=== PATIENT | female | born 1960 | race Caucasian/White ===

== ENCOUNTER → 2023-09-13 13:41 | Outpatient (REF) | payer MEDICARE, OTHER, SELFPAY | LOC: RCS 13:41 | PROVIDERS: ATTENDING PHYSICIAN Family Medicine | DX: R06.09 Other forms of dyspnea (principal) | CPT/HCPCS: 93017; 93350 ==

== ENCOUNTER → 2023-10-19 14:34 | Outpatient (REF) | payer MEDICARE, OTHER, SELFPAY | LOC: MRI 3T 14:34 | PROVIDERS: ATTENDING PHYSICIAN Family Medicine | DX: R41.3 Other amnesia (principal) | CPT/HCPCS: 70551 ==

== ENCOUNTER → 2024-03-19 14:46 | Outpatient (REF) | payer MEDICARE, OTHER, SELFPAY ==
[2024-03-19 18:23] LABS: % Basophils 0.8 % (0-2); % Eosinophils 2.3 % (0-6); % Immature Granulocytes 0.7 % (0-0.5); % Lymphocytes 30.7 % (20.5-51.1); % Monocytes 8.9 % (1.7-9.3); % Neutrophils 56.6 % (42.2-75.2); Absolute Basophils 0.1 10^3/uL (0-0.2); Absolute Eosinophils 0.3 10^3/uL (0-0.7); Absolute Immature Granulocytes 0.1 10^3/uL (0-0.05); Absolute Lymphocytes 4.1 10^3/uL (1.2-3.4); Absolute Monocytes 1.2 10^3/uL (0.1-0.6); Absolute Neutrophils 7.5 10^3/uL (1.4-6.5); Hematocrit 41.4 % (37.0-47.0); Mean Corp Hgb Conc. 33.8 g/dL (33.0-37.0); Mean Corpuscular Hgb 30.8 pg (27.0-31.0); Mean Corpuscular Volume 91.2 fL (81.0-99.0); Mean Platelet Volume 9.7 fL (7.4-10.4); Nucleated Red Blood Cells % 0 %; Platelet Count 350 10^3/uL (130-400); Red Blood Cell Count 4.54 10^6/uL (4.20-5.40); Red Cell Dist. Width 13.1 % (11.5-14.5); White Blood Cell Count 13.2 10^3/uL (4.8-10.8)
[2024-03-19 18:47] LABS: ALT (SGPT) 35 U/L (0-35); AST (SGOT) 31 U/L (14-36); Albumin 4.4 g/dl (3.5-5.0); Alkaline Phosphatase 69 U/L (38-126); Blood Urea Nitrogen 14 mg/dl (7-17); Calcium 9.6 mg/dl (8.4-10.2); Carbon Dioxide 28 mmol/L (22-30); Chloride 102 mmol/L (98-107); Glucose 73 mg/dl (70-99); Potassium 4.6 mmol/L (3.5-5.1); Sodium 140 mmol/L (135-145); Total Bilirubin 0.4 mg/dl (0.2-1.3); Total Protein 6.7 g/dl (6.3-8.2); eGFR > 60.00
== END ==
LOC: REG 14:46
PROVIDERS: ATTENDING PHYSICIAN Family Medicine
DX: R19.5 Other fecal abnormalities (principal); R14.0 Abdominal distension (gaseous); K62.89 Other specified diseases of anus and rectum
CPT/HCPCS: 36415; 74018; 80053; 85025

== ENCOUNTER → 2024-03-20 15:38 | Outpatient (REF) | payer MEDICARE, OTHER, SELFPAY | LOC: REG 15:38 | PROVIDERS: ATTENDING PHYSICIAN Family Medicine | DX: R19.5 Other fecal abnormalities (principal); R14.0 Abdominal distension (gaseous) | CPT/HCPCS: 82272; 87045; 87046; 87324; 87427; 87449; 89055 ==

== ENCOUNTER → 2024-04-05 06:23 | Day surgery (SDC) | payer MEDICARE, OTHER, SELFPAY | LOC: GI 06:23 | PROVIDERS: ATTENDING PHYSICIAN Internal Medicine | DX: K57.30 Diverticulosis of large intestine without perforation or abscess without bleeding (principal); R93.3 Abnormal findings on diagnostic imaging of other parts of digestive tract | CPT/HCPCS: 45331; 88305 ==

== ENCOUNTER → 2024-06-07 14:30 | Outpatient (REF) | payer MEDICARE, OTHER, SELFPAY | LOC: RAD 14:30 | PROVIDERS: ATTENDING PHYSICIAN Internal Medicine; FAMILY PHYSICIAN Family Medicine | DX: R09.89 Other specified symptoms and signs involving the circulatory and respiratory systems (principal); R05.9 Cough, unspecified | CPT/HCPCS: 71046 ==

== ENCOUNTER → 2024-06-27 14:21 | Outpatient (REF) | payer MEDICARE, OTHER, SELFPAY | LOC: WDC 14:21 | PROVIDERS: ATTENDING PHYSICIAN Family Medicine | DX: Z12.31 Encounter for screening mammogram for malignant neoplasm of breast (principal); R92.8 Other abnormal and inconclusive findings on diagnostic imaging of breast | CPT/HCPCS: 76642; 77063; 77067 ==

== ENCOUNTER → 2024-07-10 09:39 | Outpatient (REF) | payer MEDICARE, OTHER, SELFPAY | LOC: WDC 09:39 | PROVIDERS: ATTENDING PHYSICIAN Family Medicine | DX: R92.8 Other abnormal and inconclusive findings on diagnostic imaging of breast (principal) | CPT/HCPCS: 76642 ==

== ENCOUNTER → 2024-08-23 18:06 | Outpatient (REF) | payer MEDICARE, OTHER, SELFPAY | LOC: MRI 3T 18:06 | PROVIDERS: ATTENDING PHYSICIAN Family Medicine | DX: R41.3 Other amnesia (principal); G43.909 Migraine, unspecified, not intractable, without status migrainosus | CPT/HCPCS: 70551 ==

== ENCOUNTER → 2024-09-26 11:29 | Outpatient (REF) | payer MEDICARE, OTHER, SELFPAY | LOC: HWRAD 11:29 | PROVIDERS: ATTENDING PHYSICIAN Internal Medicine Critical Care Medicine; FAMILY PHYSICIAN Family Medicine | DX: Z87.891 Personal history of nicotine dependence (principal) | CPT/HCPCS: 71271 ==

== ENCOUNTER 2024-10-24 22:12 | Inpatient (IN) | payer MEDICARE, OTHER, SELFPAY ==
[2024-10-24] VITALS (11 sets, daily range): BP systolic 100–149; BP diastolic 41–62; BMI 25.0; BMI 24.5
--- NOTE | 2024-10-24 16:50 | DOWNTIME ---
There was a [employer] Client Enrobing Machine Corder Downtime on 10/24/2024 from 1230 to 10/24/2024 at 1550. Downtime documentation of patient's care, including medication administrations, has been reconciled in the electronic record per guidelines. Refer to the
patient's paper chart under the miscellaneous tab to see printed paper medication records and downtime forms.
--- NOTE | 2024-10-24 16:58 | DOWNTIME ---
There was a [employer] Client Radiological Technician Downtime on 10/24/2024 from 1230 to 10/24/2024 at 1550. Downtime documentation of patient's care, including medication administrations, has been reconciled in the electronic record per guidelines. Refer to the
patient's paper chart under the miscellaneous tab to see printed paper medication records and downtime forms.
[2024-10-24 17:16] LABS: ALT (SGPT) 22 U/L (0-35); AST (SGOT) 21 U/L (14-36); Albumin 4.3 g/dl (3.5-5.0); Alkaline Phosphatase 78 U/L (38-126); Blood Urea Nitrogen 10 mg/dl (7-17); Calcium 9.6 mg/dl (8.4-10.2); Carbon Dioxide 24 mmol/L (22-30); Chloride 101 mmol/L (98-107); Estimated Creatinine Clearance 87 ml/min; Glucose 102 mg/dl (70-99); Lipase 34 U/L (23-300); Potassium 4.4 mmol/L (3.5-5.1); Sodium 133 mmol/L (135-145); Total Bilirubin 0.9 mg/dl (0.2-1.3); Total Protein 6.9 g/dl (6.3-8.2); eGFR > 60.00
[2024-10-24] MEDS: NSS 1000 IV (18:00)
[2024-10-24] MEDS: OMNIPAQUE 50 ML PO (18:10)
[2024-10-24] MEDS: ZOFRAN 4 MG IV ×2 (18:10→19:56)
[2024-10-24] MEDS: TORADOL 30 MG IV (18:10)
[2024-10-24] MEDS: TYLENOL 650 MG PO (18:11)
[2024-10-24 18:48] LABS: % Basophils 0.5 % (0-2); % Eosinophils 0.1 % (0-6); % Immature Granulocytes 0.5 % (0-0.5); % Lymphocytes 9.9 % (20.5-51.1); % Monocytes 10.2 % (1.7-9.3); % Neutrophils 78.8 % (42.2-75.2); Absolute Basophils 0.1 10^3/uL (0-0.2); Absolute Immature Granulocytes 0.1 10^3/uL (0-0.05); Absolute Lymphocytes 1.5 10^3/uL (1.2-3.4); Absolute Monocytes 1.6 10^3/uL (0.1-0.6); Absolute Neutrophils 12.3 10^3/uL (1.4-6.5); Hematocrit 40.9 % (37.0-47.0); Mean Corp Hgb Conc. 34.2 g/dL (33.0-37.0); Mean Corpuscular Hgb 31.8 pg (27.0-31.0); Nucleated Red Blood Cells % 0 %; Platelet Count 233 10^3/uL (130-400); Red Cell Dist. Width 15.1 % (11.5-14.5); White Blood Cell Count 15.5 10^3/uL (4.8-10.8)
--- NOTE | 2024-10-24 19:07 | ED.GENMED ---
History of Present Illness
General
Chief Complaint: Abdominal Symptoms
Source: patient
Time Seen by Provider: 10/24/24 17:39
History of Present Illness
History of Present Illness:
64-year-old female with past medical history of psoriatic arthritis, asthma/COPD, GERD, diverticulitis presenting to the ER for evaluation of nausea vomiting and diarrhea which started this past Tuesday, accompanied with fever during this time with
Tmax of 103.6 which was earlier today. Patient took some Tylenol but states still having persistent symptoms. She does note that the day prior to her symptoms starting she had eaten some food at a local restaurant as part of services but
states she has been too ill to talk to anybody else who attended the to know if anybody else was sick. No recent travel or recent antibiotics however patient is immunosuppressed due to her psoriatic arthritis with medication she receives
for this. She has no other symptoms presently.
Past History
Past History
ED Past Medical History: Asthma, COPD, GERD, Other (low back pain, Mitral and aortic prolapse) and Other (Psoriatic arthritis)
ED Past Surgical History: , Gynecological (Hysterectomy) and Other (nasal surgery)
Patient has exhibited threatening behavior?: No
Social History
Tobacco: Smoker
Alcohol: Occasional
Drug: None
Personal:
Living: alone
Review of Systems
Review of Systems
All Other Systems: ROS reviewed and negative except as documented in HPI and ROS
Phy Exam
Physical Exam
Physical Exam:
GENERAL: Alert , in no apparent distress, appears uncomfortable, ill-appearing but nontoxic
EYE: clear conjunctiva b/l
HEAD: NCAT
ENT: o/p clr, mmm.
CARDIAC: Borderline tachycardic rate and rhythm, no murmur
LUNGS: Clear breath sounds bilaterally, no acute respiratory distress, no wheezes/rales/rhonchi
ABDOMEN: Soft, generalized tenderness, no r/g, no cvat
NEUROLOGICAL: Alert and oriented
SKIN: Warm and dry, skin intact.
MUSCULOSKELETAL: No edema, well perfused.
PSYCH: Normal and appropriate interaction.
Scores
Heart Failure Risk
Heart Failure Risk Score: Not Applicable
Heart Score for Chest Pain Patients
STEMI patient?: Not applicable
Withdrawal Assessment of Alcohol
Withdrawal Assessment Completed?: Not applicable
Sepsis
Sepsis Screening
Sepsis Assessment: Sepsis
Sepsis Screen
Sepsis Screen: Sepsis
Date: 10/24/24
Time: 22:26
Course
Orders/Labs/Results
Orders:
Orders
10/24/24 16:49
IV Insert/Care/Rem.- Treatment PRN
10/24/24 16:55
Complete Blood Count/With Diff Urgent
Comprehensive Metabolic Panel Urgent
Lipase Urgent
10/24/24 17:50
0.9% Sodium Chloride 1000 ml [Nss] 1,000 ml IV BOLUS
Acetaminophen [Tylenol] 650 mg PO NOW STA
Iohexol [Omnipaque] See Protocol PO NOW STA
Ketorolac [Toradol] 30 mg IV NOW STA
Ondansetron Injectable [Zofran] 4 mg IV NOW STA
10/24/24 17:51
CT Abd/pel (oral only)-DH Only Urgent
Comment:
Reason For Exam: generalized pain, N/V/D, fevers
10/24/24 18:14
STOOL [C difficile Antigen & Toxins] Urgent
KELLY Source: Feces/Stool
Specimen Description:
Stool Culture Urgent
KELLY Source: Feces/Stool
Specimen Description:
10/24/24 18:39
Influenza A+B Rapid Molecular Urgent
KELLY Source: Nasal Swab
Specimen Description:
10/24/24 19:49
Ondansetron Injectable [Zofran] 4 mg IV NOW STA
10/24/24 21:21
0.9% Sodium Chloride 500 ml [Nss] 500 ml IV BOLUS
10/24/24 21:49
Norovirus by PCR Stat
KELLY Source: Feces/Stool
Specimen Description:
Ova & Parasites Giardia/Crypto AG [Giardia/Cryptosporidium Ag] Urgent
KELLY Source: Feces/Stool
Specimen Description:
10/24/24 21:57
Admit/Transfer Patient As Directed
Co-Sign Provider:
Level of Care: Inpatient admission
Assign to:: Medical/Surgical
Physician / Group: bran
Diagnosis: gastroenteritis
Reason for Hospitalization: gastroenteritis
Expected length of stay greater than two midnights?: Yes
ELOS- Estimated Length of Stay in days: 3
I certify the patient meets the requirements for IP care: Yes
PRN Pain Medication Management As Directed
May give lesser potent ordered pain med per pt: Yes
preference::
Protocol:: Medication orders for pain may be administered in a
manner that supports deferring to patient preference
when the pt is:
- Requesting an ordered lesser potent pain medication.
Least to most potent pain medications are defined
as: acetaminophen < NSAID < tramadol < opioids
(morphine, oxycodone, hydromorphone).
- Requesting a lesser dose of the same medication IF
ORDERED.
- Requesting a less intrusive route of administration
if both routes are prescribed by the provider (PO <
IV).
10/24/24 21:58
Code Status As Directed
Resuscitation Status: Full Code
10/24/24 22:12
COVID-19 Antigen Stat
Source: Nasal Swab
Lactic Acid Q4H
Comment: CANCEL 2nd LACTIC ACID IF 1st LACTIC ACID IS LESS THAN 2
Blood Culture Q30M
KELLY Source: Blood/Venous
Specimen Description:
Blood Culture Q30M
KELLY Source: Blood/Venous
Specimen Description:
10/25/24 01:45
Lactic Acid Q4H
Comment: CANCEL 2nd LACTIC ACID IF 1st LACTIC ACID IS LESS THAN 2
Abnormal Lab Results
10/24/24
16:55
WBC 15.5 H 10^3/uL
(4.8-10.8)
MCH 31.8 H pg
(27.0-31.0)
RDW 15.1 H %
(11.5-14.5)
Abs Immat Gran (auto) 0.1 H 10^3/uL
(0-0.05)
Absolute Neuts (auto) 12.3 H 10^3/uL
(1.4-6.5)
Absolute Monos (auto) 1.6 H 10^3/uL
(0.1-0.6)
Neutrophils % 78.8 H %
(42.2-75.2)
Lymphocytes % 9.9 L %
(20.5-51.1)
Monocytes % 10.2 H %
(1.7-9.3)
Sodium 133 L mmol/L
(135-145)
Glucose 102 H mg/dl
(70-99)
10/24/24 16:55
10/24/24 16:55
Vital Signs
Initial and Last Documented VS:
Initial Vital Signs
Temp Pulse Resp BP Pulse Ox
98.1 F 90 16 100/59 100
10/24/24 13:56 10/24/24 13:56 10/24/24 13:56 10/24/24 13:56 10/24/24 13:56
Last Documented Vital Signs
Temp Pulse Resp BP Pulse Ox
103.0 F H 79 17 115/54 96
10/24/24 18:15 10/24/24 22:15 10/24/24 22:15 10/24/24 22:00 10/24/24 22:15
MDM/Problems Addressed
Differential Diagnosis Includes:
C. difficile colitis or other infectious diarrhea, hepatitis, diverticulitis, appendicitis, pancreatitis
MDM/Problems Addressed:
64-year-old female presenting the ER for evaluation of nausea vomiting and diarrhea associated with a fever. Symptoms ongoing for 5 days now. Patient immunosuppressed, has fever here. Leukocytosis noted on lab work with mild hyponatremia with
hyponatremia likely being from mild dehydration. CT scan of the abdomen and pelvis ordered. Will attempt to obtain stool studies. Given her fever, progressive symptoms and immunosuppressed state patient will likely need admission for continued
evaluation and treatment.
Chronic conditions affecting care: Immunosuppressed
*Radiology
Radiology exam reviewed: radiology read reviewed
*Pulse Oximetry
Patient hypoxic: no
*Critical Care Note
Total Time (30-74mins, 75-104mins- exclusive of procedures): Not Applicable
Data Reviewed
Review of Other/Old Records Reveals: Labs, Records and Radiology Studies
Patient Management
Discussion with other providers: Hospitalist
Escalation/DeEscalation of care consider admission/obs:
CT scan findings for no acute intra-abdominal processes however there was findings noted for possible right middle lobe pneumonia. Patient without symptoms suggestive of pneumonia. Given her diarrhea and risk for C. difficile colitis, will defer
antibiotic treatment to hospitalist team. Due to patient's present immunosuppressed state, fevers and leukocytosis plan for admission hospitalist team to admit.
ED Attending Note
-
Portions of this chart may have been created with voice recognition software.� Occasional wrong word or��sound alike� substitutions may have occurred due to the inherent limitations of voice recognition software.
Discharge Plan
Departure
Patient Disposition: Admit
Date of Disposition: 10/24/24
Time of Disposition: 21:35
Presentation/result/management discussed w/ accepting MD/DO: Hospitalist
Discharge Problem:
Nausea, vomiting, and diarrhea, Fever
Interventions
Interventions:
*Risk Screen - Suicide Last Done: 10/24/24 16:52
*General Assessment Last Done: 10/24/24 17:00
*Neglect/Abuse Screening Last Done: 10/24/24 16:52
*ED- Fall Risk Assessment Last Done: 10/24/24 16:52
*ED COVID-19 Vaccine History Last Done: 10/24/24 16:52
PC-Vgxzdt-Jxufugxyiy Assessment Last Done: 10/24/24 17:00
--- NOTE | 2024-10-24 21:36 | HPS.HSE ---
Family Physician
-
Family Physician: Larry Rothman Jr.
Chief Complaint
-
fever, n/v/d
History of Present Illness
64-year-old female with past medical history of psoriatic arthritis, asthma/COPD, GERD, diverticulitis presenting to the ER for evaluation of nausea vomiting and diarrhea which started this past Tuesday, accompanied with fever during this time with
Tmax of 103.6. She does note that the day prior to her symptoms starting she had eaten some food at a local restaurant as part. Tuesday and Tuesday she was vomiting and diarrhea. Patient started spiking fever since Tuesday night . Since then she
has been taking Tylenol every 6 hours for fever. Patient stated very poor appetite. she had half a cup of soup yesterday afternoon. She had ordered loose stool in her pad after having soup. She is complaining of headache and lightheaded .denied
runny nose, cough, congestion. Denied abdominal pain .patient denied dysuria, hematuria .no recent travel or recent antibiotics
Admitted for further management
Medical History
Past Medical History
Past Medical History: Reports Other
Additional Past Medical History:
Asthma, COPD, GERD, psoriatic arthritis
Past Surgical History: Reports Other
Additional Past Surgical History:
, hysterectomy, nasal surgery
Social History
Tobacco: Smoker (Half a pack daily)
Alcohol: Occasional
Drug: None
Family History
Family History: Not pertinent
Allergies / Home Medications
Allergies reflects when Allergies were last updated in [employer].
Home Medications with original date entered in [employer]
Allergy/Medication List:
Allergies
Allergy/AdvReac Type Severity Reaction Status Date / Time
cortisone Allergy Unknown Unknown Verified 10/24/24 17:09
iodine Allergy Pharmacy Verified 09/06/18 11:29
to Review
morphine (Morphine) Allergy itching, Verified 09/06/18 11:29
swelling,
difficulty
breathing,
nausea
oxycodone HCl (From Percocet) Allergy Pharmacy Verified 09/06/18 11:29
to Review
Penicillins Allergy itching, Verified 09/06/18 11:29
swelling,
difficulty
breathing,
nausea
shellfish derived Allergy itching, Verified 09/06/18 11:29
swelling,
difficulty
breathing,
nausea
antibiotic Allergy swelling, Uncoded 09/06/18 11:29
itching,
breathing
problems
Home Medications
fexofenadine 30 mg tablet (Abbie) 180 mg PO DAILY 02/09/10
estradiol 0.5 mg tablet 0.5 mg PO DAILY 09/06/18
gabapentin 300 mg capsule 300 mg PO HS 09/06/18
certolizumab pegol 200 mg/mL subcutaneous syringe kit (Cimzia) 200 mg SC Q2W 10/24/24
famotidine 40 mg tablet 40 mg PO DAILY 10/24/24
fluticasone furoate 200 mcg-vilanterol 25 mcg/dose inhalation powder (Breo Ellipta) 1 inh inhalation 1XD 10/24/24
folic acid 1 mg tablet 3 mg PO DAILY 10/24/24
inulin-vitamin D3 50 mcg PO DAILY 10/24/24
levothyroxine 125 mcg tablet 125 mcg PO DAILY 10/24/24
losartan 25 mg tablet 25 mg PO DAILY 10/24/24
methenam 118 mg-m.blue 10 mg-s.phos 40.8 mg-p.salic 36 mg-hyos capsule 1 tab PO QID PRN cystic bladder 10/24/24
methotrexate sodium 2.5 mg tablet 20 mg PO QWEEK 10/24/24
nabumetone 750 mg tablet 750 mg PO BID 10/24/24
rosuvastatin 5 mg tablet 5 mg PO DAILY 10/24/24
Review of Systems
-
Constitutional: Reports Fever and Fatigue
EENT: Reports No Symptoms
Respiratory: Reports No Symptoms
Cardiac: Reports No Symptoms
Abdomen/GI: Reports Nausea, Vomiting and Diarrhea
: Reports No Symptoms
Musculoskeletal: Reports No Symptoms
Skin: Reports No Symptoms
Neurological: Reports No Symptoms
Endocrine: Reports No Symptoms
Hematologic/Lymphatic: Reports No Symptoms
Psych: Reports No Symptoms
Physical Exam
Vital Signs
Vital Signs
Temp Pulse Resp BP Pulse Ox
103.0 F H 80 19 109/44 93
10/24/24 18:15 10/24/24 21:15 10/24/24 21:15 10/24/24 21:05 10/24/24 21:15
Physical Exam
General: Well Developed, Well Nourished and No Apparent Distress
HEENT: NormoCephalic, Moist mucous membranes and Atraumatic
Respiratory: Clear
Cardiac: S1/S2 and Regular Rhythm; No Murmur or Rub
GI: Soft, Non Tender, Non Distended and Normal Bowel Sounds; No Organomegaly
Rectal: Deferred by Provider
Musculoskeletal: No Clubbing, No Cyanosis and No Edema
Skin: No Rash
Neuro: AO x 3 and Nonfocal/grossly intact
Psych: Calm
Laboratory Results
-
10/24/24 16:55
10/24/24 16:55
Laboratory Results
Total Bilirubin 0.9 mg/dl (0.2-1.3) 10/24/24 16:55
AST 21 U/L (14-36) 10/24/24 16:55
ALT 22 U/L (0-35) 10/24/24 16:55
Alkaline Phosphatase 78 U/L (38-126) 10/24/24 16:55
Lipase 34 U/L (23-300) 10/24/24 16:55
Data Reviewed
-
CT Scan: Report Reviewed by me
Lab Data: Labs Reviewed by me
Impression/Plan
-
# Nausea/vomiting/diarrhea with fever concern for gastroenteritis
- Sepsis as evidenced WBC 15.5, temp 103
- CT with impression of No CT evidence for an acute inflammatory process in the abdomen or pelvis within the limitations of the lack of intravenous contrast. Suspicion for mild pneumonia/pneumonitis in the right middle lobe.
- Stool for culture, C. difficile, ova and parasite, norovirus ordered
- Full liquid diet, advance as tolerated
- Fluids continued for hydration
# GERD
-PPI continued
# Hypothyroid
- Levothyroxine continue
# Essential hypertension
- Losartan held due to hypotension
# Hyperlipidemia
- Statin continued
# Psoriatic arthritis
- Relafen continued
- Gabapentin continued
- On Cimzia and methotrexate
DVT prophylaxis
- Lovenox subcu
# CODE STATUS
- Full code
[2024-10-24] MEDS: NSS 500 IV (21:37)
--- NOTE | 2024-10-24 21:56 | W.PN.UPDATE ---
Update Note
Progress Note Update
This is an addendum to H&P written by CARE PROCESS MANAGER Syeda Paz
I saw and examined the patient.
The CARE PROCESS MANAGER's note was reviewed and I agree with the note.
Comment:
Ms. Cindy Horn is a 64 yo woman with hx psoriatic arthritis on immunosuppression, asthma/COPD, GERD presents to the ER with nausea/vomiting and fever up to 103 over past 5 days. Patient tried to drink soup yesterday then had significant diarrhea,
no bowel movement since.
Triage VS: T 98.1, P 90, RR 16, BP 100/59, SpO2 100%
LABS: WBC 15.5, Hg 14.0, PLT 233, Na 133, K+ 4.4, CO2 24, Cr 0.7, Glucose 102, liver enzymes WNL
IMPRESSION:
No CT evidence for an acute inflammatory process in the abdomen or pelvis within the limitations of the lack of intravenous contrast. Suspicion for mild pneumonia/pneumonitis in the right middle lobe.
Gastroenteritis
Nausea/Vomiting/Diarrhea
-s/p 1.5L in ER, IV Zofran PRN
-admit to med/surg
-continue IV fluids, IV Zofran PRN
-hold off on antibiotics for now
-f/U C. Diff, norovirus, stool culture, ova/parasites
-follow up covid testing
-influenza negative
-clear liquid diet, advance as tolerated
-if cultures unrevealing/patient without symptomatic improvement over next 48 hours would consult GI
possible pneumonia read on CT abdomen; patient without cough/congestion or pulmonary symptoms to suggest this as source of infection
-consider follow up CXR in 1-2 days
Psoriatic arthritis on immunosuppression - hold JUNIOR ACCOUNTANT methotrexate, Cimzie
continue JUNIOR ACCOUNTANT folate
Essential HTN - hold JUNIOR ACCOUNTANT Losartan
HLD - JUNIOR ACCOUNTANT Statin
DVT PPx
FULL CODE
[2024-10-24 22:38] LABS: Lactic Acid 0.5 mmol/L (0.7-2.0)
[2024-10-24 22:42] LABS: COVID-19 Antigen Negative (Negative)
[2024-10-25] MEDS: NEURONTIN 300 MG PO ×2 (00:35→22:40)
[2024-10-25] MEDS: NSS 1000 IV ×2 (00:45→14:01)
[2024-10-25] MEDS: TYLENOL 650 MG PO ×4 (01:07→19:47)
--- NOTE | 2024-10-25 01:55 | PTCARENOTE ---
Pt arrived to unit via stretcher. Pt walked from stretcher to bed. Pt was oriented to room. Pt AAOx3, VSS. Call ziegler is within reach, plan of care ongoing.
[2024-10-25 05:37] LABS: Hematocrit 36.4 % (37.0-47.0); Hemoglobin 12.5 g/dL (12.0-16.0); Mean Corp Hgb Conc. 34.3 g/dL (33.0-37.0); Mean Corpuscular Hgb 31.5 pg (27.0-31.0); Mean Corpuscular Volume 91.7 fL (81.0-99.0); Mean Platelet Volume 9.2 fL (7.4-10.4); Platelet Count 192 10^3/uL (130-400); Red Blood Cell Count 3.97 10^6/uL (4.20-5.40); Red Cell Dist. Width 14.9 % (11.5-14.5); White Blood Cell Count 11.4 10^3/uL (4.8-10.8)
[2024-10-25] MEDS: SYNTHROID 125 MCG PO (05:57)
[2024-10-25] MEDS: SYMBICORT 160/4.5 MCG INHALER 2 PUFF INH ×2 (07:26→19:34)
[2024-10-25 07:35] VITALS: BP 164/60
--- NOTE | 2024-10-25 08:19 | W.PN.HOSP.TC ---
Today's Communication/Plan
-
see plan
Assessment / Plan
Assessment / Plan
Gen: NAD, AAOx3.
Eyes: EOMI, PERRLA, no scleral icterus.
Neck: supple.
CV: tachy, reg rhythm, +S1/S2, no m/r/g.
Resp: CTAB, no rales, wheezes, or rhonchi.
Abd: +BS, soft, NT, ND
Skin: No rashes.
Neuro: CN 2-12 intact, non-focal.
Psych: Normal mood and affect.
10/25/24 07:18 Feces/Stool C. difficile [facility] Antigen & Toxins - Final
C. difficile antigen positive, toxin negative.
Clostridium difficile present, but toxin not detected.
Patient may be a carrier, colonized with nontoxinogenic
strain or the level of toxin in sample is below detection
limits. This information should be used in conjunction with
the patient's clinical history.
10/24/24 18:39 Nasal Swab Influenza Types A & B (NANDINI) - Final
Negative for Influenza A & B, NAAT
Negative results must be combined with clinical observations
and patient history.
Nucleic Acid Amplification test (NAAT)performed on the
[employer] NOW platform.
CT A/P: No CT evidence for an acute inflammatory process in the abdomen or pelvis within the limitations of the lack of intravenous contrast. Suspicion for mild pneumonia/pneumonitis in the right middle lobe.
Sepsis:
-presented with N/V/D with fever with concern for gastroenteritis
-CT A/P above, check CXR
-COVID/Flu NEG
-follow stool studies and BCxs. Note, C diff Ag POS, toxin NEG. As the pt is immunocompromised and has profuse diarrhea, will start PO Vanco pending ID eval.
-cont IVFs
Other problems:
GERD: cont PPI
Hypothyroidism: cont Levoxyl
Essential hypertension: Losartan was held due to hypotension
Hyperlipidemia: cont statin
Psoriatic arthritis: cont Relafen/gabapentin. Home MTX on hold, on Cimzia outpt.
FULL/Lovenox
Total time spent on today's encounter was 50 minutes which included time spent in counseling the patient/family regarding diagnosis and treatment plan as listed above, goals of care, and symptom management. Case was discussed with nursing staff,
specialists, and care coordinators/case management. All labs and imaging personally reviewed by me. Remainder the time spent in detailed review of previous records, lab data, imaging, and other medical provider documentation.
Anticipated Discharge: > 48 hours
Subjective/Interval History
-
Date of Service: October 25, 2024
c/o persistent diarrhea
Objective Data
-
Labs:
Laboratory Results
10/25/24
05:22
WBC 11.4 H
Hgb 12.5
Hct 36.4 L
Plt Count 192
Vital Signs:
Vital Signs
Temp Pulse Resp BP Pulse Ox
102.2 F H 103 17 164/60 95
10/25/24 07:35 10/25/24 07:35 10/25/24 07:35 10/25/24 07:35 10/25/24 07:35
I&O
10/24/24 10/25/24 10/26/24
06:59 06:59 06:59
Intake Total 960 / 960
Balance 960 / 960
[2024-10-25] MEDS: FOLVITE 3 MG PO (08:31)
[2024-10-25] MEDS: CLARITIN 10 MG PO (08:32)
[2024-10-25] MEDS: PEPCID 40 MG PO (08:32)
[2024-10-25] MEDS: ESTRACE 0.5 MG PO (08:32)
[2024-10-25] MEDS: CRESTOR 5 MG PO (08:32)
[2024-10-25] MEDS: RELAFEN 750 MG PO ×2 (08:33→19:47)
[2024-10-25] MEDS: FIRVANQ 125 MG PO ×3 (11:09→23:51)
[2024-10-25 13:24] VITALS: BMI 24.5
[2024-10-25 15:07] VITALS: BP 132/66
--- NOTE | 2024-10-25 16:02 | CON.ID ---
Consultation
-
Date/Time Consultation Requested: 10/25/2024 0927
Date/Time Consultation Performed: 10/25/2024 1600
Requesting Provider: Dr. Carrasquillo
Performing Provider: Dr. Acevedo
Reason for Consultation: Sepsis, diarrhea, immunosuppressed patient
Chief Complaint / Past History
History of Present Illness
Cindy Horn is a 64-year-old female being evaluated at the request of Dr. Carrasquillo in regards to sepsis, diarrhea and immunosuppression. History is obtained from chart review, along with patient interview.
The patient presented to the emergency room here at [facility] on 10/24 secondary to nausea, vomiting and diarrhea which started approximately 6 days prior to admission.. She notes that approximately 1 week ago she attended a , and a
luncheon thereafter at a local restaurant. At the [facility], a buffet was served. She is not sure if any of the other attendees have also fallen ill. She does not recall what she ate prior to going to the , though. The next day she developed
nausea and vomiting, and then subsequently developed the diarrhea which was initially mushy but over the past week has turned to rian water. She initially thought that she developed a norovirus because of her symptomatology, but temperatures
persisted.
At the present time she notes ongoing nausea but no vomiting. Again she still has diarrhea. She notes a tender abdomen.
She denies any recent travel. She uses been as water with a filter. She has 1 dog. She lives alone. She denies any history of rash. She knows when she has a fever as she feels hot.
She has no underlying history of psoriatic or rheumatoid arthritis, and received Cimzia 2 weeks ago.
Past History
Additional Past Medical History:
Asthma
COPD
GERD
Chronic low back pain
Mitral valve prolapse
Psoriatic arthritis
Additional Past Surgical History:
Hysterectomy
Nasal surgery
Allergy History:
cortisone Allergy (Unknown, Verified 10/24/24 17:09)
Unknown
iodine Allergy (Verified 09/06/18 11:29)
Pharmacy to Review
morphine (Morphine) Allergy (Verified 09/06/18 11:)
itching, swelling, difficulty breathing, nausea
oxycodone HCl (From Percocet) Allergy (Verified 09/06/18 11:29)
Pharmacy to Review
Penicillins Allergy (Verified 09/06/18 11:)
itching, swelling, difficulty breathing, nausea
shellfish derived Allergy (Verified 09/06/18:)
itching, swelling, difficulty breathing, nausea
Medications Reviewed: Yes
Current Antibiotics:
Vancomycin 125 mg p.o. every 6 hours
Social History
Tobacco: Non-Smoker
Alcohol: None
Drug: None
Personal: Single
Living: Alone
Employment: Employed
Family History
Family History: Not Pertinent
Review of Systems
Vital Signs
Temp Pulse Resp BP Pulse Ox
102.9 F H 108 16 132/66 95
10/25/24 15:07 10/25/24 15:07 10/25/24 15:07 10/25/24 15:07 10/25/24 15:07
Physical Exam
Physical Exam
Constitutional: No Acute Distress, Well Developed, Comfortable and Non-toxic
Head: Normocephalic
Eyes: Pupils Equal, Pupils Round, No Conjunctival Hemorrhage and Sclera Anicteric
Oral: No Thrush and No Ulcers
Cardiovascular: Regular Rate and S1/S2; Negative S3/S4
Pulmonary: Clear and Non Labored; Negative Wheezes, Rales or Rhonchi
Gastrointestinal: Soft, Non Tender, Non Distended, Normal Bowel Sounds, No Rebound and No Guarding
Genito-Urinary: Negative Ramirez
Extremities: Negative Edema, Clubbing or Cyanosis
Skin: Warm and Dry; Negative Rash or Jaundice
Neurological: Awake and Alert
Psychological: Calm
Lab / Diagnostic Study Results
10/25/24 05:22
10/24/24 16:55
Abs Immat Gran (auto) 0.1 10^3/uL (0-0.05) H 10/24/24 16:55
Absolute Neuts (auto) 12.3 10^3/uL (1.4-6.5) H 10/24/24 16:55
Absolute Lymphs (auto) 1.5 10^3/uL (1.2-3.4) 10/24/24 16:55
Absolute Monos (auto) 1.6 10^3/uL (0.1-0.6) H 10/24/24 16:55
Absolute Basos (auto) 0.1 10^3/uL (0-0.2) 10/24/24 16:55
Immature Gran % 0.5 % (0-0.5) 10/24/24 16:55
Neutrophils % 78.8 % (42.2-75.2) H 10/24/24 16:55
Lymphocytes % 9.9 % (20.5-51.1) L 10/24/24 16:55
Monocytes % 10.2 % (1.7-9.3) H 10/24/24 16:55
Eosinophils % 0.1 % (0-6) 10/24/24 16:55
Basophils % 0.5 % (0-2) 10/24/24 16:55
Lactic Acid 0.5 mmol/L (0.7-2.0) L 10/24/24 22:12
Microbiology Results
Micro:
10/25/24 07:18 Cryptosporidium/Giardia - Final
Feces/Stool Negative for Cryptosporidium and/or Giardia Lamblia
antigens.
10/25/24 07:18 - Final
Feces/Stool Negative for Norovirus GI and GII.
10/25/24 07:18 C. difficile GDH Antigen & Toxins - Final
Feces/Stool C. difficile antigen positive, toxin negative.
Clostridium difficile present, but toxin not detected.
Patient may be a carrier, colonized with nontoxinogenic
strain or the level of toxin in sample is below detection
limits. This information should be used in conjunction with
the patient's clinical history.
10/25/24 07:18 Salmonella/Shigella Culture - Pending
Feces/Stool Campylobacter Culture - Pending
Shiga Toxin Test - Pending
10/24/24 22:20 Blood Culture - Pending
Blood/Venous
10/24/24 22:12 Blood Culture - Pending
Blood/Venous
10/24/24 18:39 Influenza Types A & B (NANDINI) - Final
Nasal Swab Negative for Influenza A & B, NAAT
Negative results must be combined with clinical observations
and patient history.
Nucleic Acid Amplification test (NAAT)performed on the
[employer] platform.
Imaging:
10/24/2024 CT abdomen/pelvis without contrast: No CT evidence for acute inflammatory process in the abdomen or pelvis within the limits of lack of IV contrast. Suspicion for mild pneumonia versus pneumonitis in the right middle lobe. Please see
full dictation for additional detail.
Assessment / Plan
Gastroenteritis with nausea, vomiting and diarrhea
Leukocytosis
Asthma
COPD
GERD
Chronic low back pain
Mitral valve prolapse
Psoriatic arthritis
Recommendations:
Continue with empiric vancomycin, although not clear all symptomatology can be attributed to C. difficile, especially without toxin being found upon testing.
Differential also includes Salmonella infection (typhoid fever). Given ongoing diarrhea and fever, will begin empiric ciprofloxacin.
Await further culture data to guide further antimicrobial selection and potential de-escalation.
Trend white count. Follow fever curve.
[2024-10-25] MEDS: LOVENOX 40 MG SC (17:22)
[2024-10-25 18:56] LABS: Hepatitis C Antibody Negative (Negative)
[2024-10-25] MEDS: CIPRO 500 MG PO (19:45)
[2024-10-25 23:16] VITALS: BP 135/86
[2024-10-26] MEDS: NSS 1000 IV (02:10)
[2024-10-26] MEDS: TYLENOL 650 MG PO ×2 (02:10→10:44)
[2024-10-26 05:38] LABS: Hematocrit 35.9 % (37.0-47.0); Hemoglobin 12.4 g/dL (12.0-16.0); Mean Corp Hgb Conc. 34.5 g/dL (33.0-37.0); Mean Corpuscular Hgb 31.3 pg (27.0-31.0); Mean Corpuscular Volume 90.7 fL (81.0-99.0); Mean Platelet Volume 9.6 fL (7.4-10.4); Platelet Count 172 10^3/uL (130-400); Red Blood Cell Count 3.96 10^6/uL (4.20-5.40); Red Cell Dist. Width 15.1 % (11.5-14.5); White Blood Cell Count 11.8 10^3/uL (4.8-10.8)
[2024-10-26] MEDS: FIRVANQ 125 MG PO ×4 (05:58→23:42)
[2024-10-26] MEDS: SYNTHROID 125 MCG PO (05:58)
[2024-10-26 07:26] VITALS: BP 137/69
[2024-10-26] MEDS: SYMBICORT 160/4.5 MCG INHALER 2 PUFF INH ×2 (07:45→18:12)
[2024-10-26] MEDS: ESTRACE 0.5 MG PO (08:00)
[2024-10-26] MEDS: RELAFEN 750 MG PO ×2 (08:00→20:17)
[2024-10-26] MEDS: FOLVITE 3 MG PO (08:00)
[2024-10-26] MEDS: CLARITIN 10 MG PO (08:01)
[2024-10-26] MEDS: PEPCID 40 MG PO (08:01)
[2024-10-26] MEDS: CIPRO 500 MG PO (08:01)
[2024-10-26] MEDS: NSS IV (08:01)
[2024-10-26] MEDS: CRESTOR 5 MG PO (08:01)
--- NOTE | 2024-10-26 09:11 | W.PN.HOSP.TC ---
Addendum entered and electronically signed by Garo Carrasquillo MD 10/26/24 14:28:
CXR: Extensive right middle lobe pneumonia.
Case discussed with Dr. Acevedo. He is going to adjust abx to include Levaquin.
Original Note:
Today's Communication/Plan
-
see plan
Assessment / Plan
Assessment / Plan
Gen: NAD, AAOx3.
Eyes: EOMI, PERRLA, no scleral icterus.
Neck: supple.
CV: remains tachy, reg rhythm, +S1/S2, no m/r/g.
Resp: CTAB anteriorly, no rales, wheezes, or rhonchi.
Abd: remains +BS, soft, NT, ND
Skin: No rashes.
Neuro: CN 2-12 intact, non-focal.
Psych: Normal mood and affect.
10/24/24 22:20 Blood/Venous Blood Culture - Preliminary
No Growth in 24 hours- Final report to follow
10/24/24 22:12 Blood/Venous Blood Culture - Preliminary
No Growth in 24 hours- Final report to follow
10/25/24 07:18 Feces/Stool Cryptosporidium/Giardia - Final
Negative for Cryptosporidium and/or Giardia Lamblia
antigens.
10/25/24 07:18 Feces/Stool - Final
Negative for Norovirus GI and GII.
10/25/24 07:18 Feces/Stool C. difficile GDH Antigen & Toxins - Final
C. difficile antigen positive, toxin negative.
Clostridium difficile present, but toxin not detected.
Patient may be a carrier, colonized with nontoxinogenic
strain or the level of toxin in sample is below detection
limits. This information should be used in conjunction with
the patient's clinical history.
10/24/24 18:39 Nasal Swab Influenza Types A & B (NANDINI) - Final
Negative for Influenza A & B, NAAT
Negative results must be combined with clinical observations
and patient history.
Nucleic Acid Amplification test (NAAT)performed on the
[employer] platform.
CT A/P: No CT evidence for an acute inflammatory process in the abdomen or pelvis within the limitations of the lack of intravenous contrast. Suspicion for mild pneumonia/pneumonitis in the right middle lobe.
Sepsis:
-presented with N/V/D with fever with concern for gastroenteritis
-CT A/P above, check CXR
-COVID/Flu NEG
-BCxs NGTD
-C diff Ag POS, toxin NEG. As the pt is immunocompromised and had profuse diarrhea, cont PO Vanco
-Stool studies: Norovirus NEG, Cryptosporidium/Giardia negative
-cont IVFs
-currently on Cipro as per ID with the possibility of Salmonella infection (typhoid fever).
-remains febrile/tachy and without improvement in diarrhea
-c/s GI
Other problems:
GERD: cont PPI
Hypothyroidism: cont Levoxyl
Essential hypertension: Losartan was held due to hypotension
Hyperlipidemia: cont statin
Psoriatic arthritis: cont Relafen/gabapentin. Home MTX on hold, on Cimzia outpt.
FULL/Lovenox
Anticipated Discharge: > 48 hours
Subjective/Interval History
-
Date of Service: October 26, 2024
Reports persistent diarrhea that is black. Denies abd pain.
Objective Data
-
Labs:
Laboratory Results
10/26/24
05:25
WBC 11.8 H
Hgb 12.4
Hct 35.9 L
Plt Count 172
Vital Signs:
Vital Signs
Temp Pulse Resp BP Pulse Ox
97.9 F 100 16 137/69 92
10/26/24 07:26 10/26/24 07:47 10/26/24 07:47 10/26/24 07:26 10/26/24 07:47
I&O
10/25/24 10/26/24 10/27/24
06:59 06:59 06:59
Intake Total 960 / 960 1800 / 1800
Balance 960 / 960 1800 / 1800
[2024-10-26 09:53] LABS: Blood Urea Nitrogen 4 mg/dl (7-17); Calcium 8.2 mg/dl (8.4-10.2); Carbon Dioxide 25 mmol/L (22-30); Chloride 107 mmol/L (98-107); Estimated Creatinine Clearance 101 ml/min; Glucose 124 mg/dl (70-99); Potassium 4.1 mmol/L (3.5-5.1); Sodium 135 mmol/L (135-145); eGFR > 60.00
--- NOTE | 2024-10-26 11:11 | CON.GI ---
Addendum entered and electronically signed by Negin Fang MD 10/26/24 15:30:
I saw and examined the patient.
The [employer]'s note was reviewed and I agree with the note.
Comment: This is a 64-year-old female with past medical history as listed below including psoriatic arthritis on chronic immunosuppression with methotrexate and also on Cimzia and rest of medical history as below who was in her usual state of health
up until she had eaten at buffet at a last and the next day she started to experience multiple episodes of diarrhea with no blood in the stool also had nausea with a small amount of vomiting. symptoms persisted so she presented to
the emergency room and she was also febrile on admission. C. difficile antigen was positive but toxin was negative and cultures are pending, negative for crypto and Giardia. She has been seen by infectious disease Dr. Acevedo and started on
ciprofloxacin initially which was switched to levofloxacin for probable Salmonella empirically and also has been on vancomycin oral. She sees Dr. Solomon and had a sigmoidoscopy 03/2024 and biopsies at that time were negative for microscopic colitis
and showed diverticulosis prior to that she had a colonoscopy in .
Assessment and plan multiple episodes of watery stools for about a week since she had eaten at a buffet at a most likely infectious etiology and especially since she also is immunocompromised on chronic methotrexate and Cimzia therapy.
Agree with empiric antibiotics especially given also had fever and she is currently on oral vancomycin although I think is less likely C. difficile she was toxin negative antigen positive. She is also been started on empiric levofloxacin today
received ciprofloxacin yesterday. continue to support with IV hydration and will follow-up on stool cultures. She still had a fever today. CT abdomen and pelvis was unremarkable with no evidence of significant colitis or ileitis
Original Note:
Consultation
-
Date/Time Consultation Requested: 10/26/24 1100
Date/Time Consultation Performed: 10/26/24 1115
Requesting Provider: Garo Carrasquillo MD
Performing Provider: SHERON Angeles, Negin Fang MD
Reason for Consultation: diarrhea, nausea, vomiting
Medical History
Chief Complaint / HPI
Chief Complaint: diarrhea
History of Present Illness:
Pt is a 64yo presents with hx psoriatic arthritis on chronic methotrexate and Cimzia , asthma/COPD, MVP, GERD, diverticulitis, prior , hysterectomy, nasal surgery with sudden onset nausea, vomiting, and diarrhea with fever up to 103.6.
Work up with c-diff ag+ tox neg(placed on Vanco), stool cx pending and norovirus, Giardia/crypto negative. In review with patient she denies prior GI issues but did have flex sig in 03/2024 for diarrhea with neg biopsy. She recently was doing well
with good bowel function and went to family member last . She ate at buffet with chicken parm, ziti and did not eat any salad. She denies any other food recently consumed that were tainted. She then began on Tuesday with
intractable diarrhea. It was initially slowing down as she was eating less then now persistent diarrhea with incontinence with any oral intakes. She has lost a few lbs and admits to some nausea with small amount of vomiting bile. She otherwise
denies dysphagia, GERD, abdominal pain, constipation and noted with dark brown stools without red blood. CT on admission with 10/[address] evidence for an acute inflammatory process in the abdomen or pelvis within the limitations of the lack of
intravenous contrast. Suspicion for mild pneumonia/pneumonitis in the right middle lobe. She denies any change in medication, recent travel or antibiotics.
prior scopes:
03/2024-flex- ahmad diverticulosis, normal mucosa bx neg colitis, neg lymphocytic/collagenous colitis, HP changes
03/31/23- colonoscopy - one polyp in sigmoid, diverticulosis bx polypoid change with HP changes
06/1015 EGD [facility] - Normal examined duodenum.
- Erythematous mucosa in the esophagus. Biopsied.
- Gastritis. Biopsied.
- The examination was otherwise normal.
bx no metaplasia, no inflammation
Past Medical History
Past Medical History: Asthma, COPD, GERD, Valvular Disease (MVP) and Other (psoriatic arthritis, diverticulitis )
Past Surgical History: , Gynecological (hysterectomy) and Other (nasal surgery )
Social History
Tobacco: Smoker (1/2 PPD )
Alcohol: Occasional
Drug: None
Living: Alone
Employment: Retired
Family History
Family History: Other (no family hx colon CA or polyps)
Allergies / Home Medications
Allergy/AdvReac Type Severity Reaction Status Date / Time
cortisone Allergy Unknown Unknown Verified 10/24/24 17:09
iodine Allergy Pharmacy Verified 09/06/18 11:29
to Review
morphine (Morphine) Allergy itching, Verified 09/06/18 11:29
swelling,
difficulty
breathing,
nausea
oxycodone HCl (From Percocet) Allergy Pharmacy Verified 09/06/18 11:29
to Review
Penicillins Allergy itching, Verified 09/06/18 11:29
swelling,
difficulty
breathing,
nausea
shellfish derived Allergy itching, Verified 09/06/18 11:29
swelling,
difficulty
breathing,
nausea
antibiotic Allergy swelling, Uncoded 09/06/18 11:29
itching,
breathing
problems
�Medication �Instructions �Recorded
fexofenadine 30 mg tablet (Abbie) 180 mg PO DAILY 02/09/10
estradiol 0.5 mg tablet 0.5 mg PO DAILY 09/06/18
gabapentin 300 mg capsule 300 mg PO HS 09/06/18
certolizumab pegol 200 mg/mL 200 mg SC Q2W 10/24/24
subcutaneous syringe kit (Cimzia)
famotidine 40 mg tablet 40 mg PO DAILY 10/24/24
fluticasone furoate 200 1 inh inhalation 1XD 10/24/24
mcg-vilanterol 25 mcg/dose
inhalation powder (Breo Ellipta)
folic acid 1 mg tablet 3 mg PO DAILY 10/24/24
inulin-vitamin D3 50 mcg PO DAILY 10/24/24
levothyroxine 125 mcg tablet 125 mcg PO DAILY 10/24/24
losartan 25 mg tablet 25 mg PO DAILY 10/24/24
methenam 118 mg-m.blue 10 1 tab PO QID PRN cystic bladder 10/24/24
mg-s.phos 40.8 mg-p.salic 36
mg-hyos capsule
methotrexate sodium 2.5 mg tablet 20 mg PO QWEEK 10/24/24
nabumetone 750 mg tablet 750 mg PO BID 10/24/24
rosuvastatin 5 mg tablet 5 mg PO DAILY 10/24/24
Review of Systems
-
History Source: Patient
Constitutional: Reports Fever, Weight Loss (few lbs ) and Fatigue
EENT: Reports No Symptoms
Respiratory: Reports No Symptoms
Cardiac: Reports No Symptoms
Abdomen/GI: Reports Nausea, Vomiting (small amount ) and Diarrhea (with dark stool)
: Reports No Symptoms
Musculoskeletal: Reports No Symptoms
Skin: Reports No Symptoms
Neurological: Reports Weakness
Endocrine: Reports No Symptoms
Hematologic/Lymphatic: Reports No Symptoms
Vital Signs
Temp Pulse Resp BP Pulse Ox
102.4 F H 100 16 137/69 92
10/26/24 10:43 10/26/24 07:47 10/26/24 07:47 10/26/24 07:26 10/26/24 07:47
Physical Exam
Exam
General: Well Developed, Well Nourished and No Apparent Distress
HEENT: Normocephalic and Anicteric
Respiratory: Clear
Cardiac: Other (tachy)
GI: Soft, Non Tender and Non Distended
Musculoskeletal: No Clubbing and No Cyanosis
Skin: Warm and Dry
Neuro: Awake, Alert and AO x 3
Psych: Calm
Results
WBC 11.8 10^3/uL (4.8-10.8) H 10/26/24 05:25
Hgb 12.4 g/dL (12.0-16.0) 10/26/24 05:25
Hct 35.9 % (37.0-47.0) L 10/26/24 05:25
MCV 90.7 fL (81.0-99.0) 10/26/24 05:25
Plt Count 172 10^3/uL (130-400) 10/26/24 05:25
Absolute Neuts (auto) 12.3 10^3/uL (1.4-6.5) H 10/24/24 16:55
Sodium 135 mmol/L (135-145) 10/26/24 09:28
Potassium 4.1 mmol/L (3.5-5.1) 10/26/24 09:28
Chloride 107 mmol/L (98-107) 10/26/24 09:28
Carbon Dioxide 25 mmol/L (22-30) 10/26/24 09:28
BUN 4 mg/dl (7-17) L 10/26/24 09:28
Creatinine 0.6 mg/dL (0.6-1.0) 10/26/24 09:28
Calcium 8.2 mg/dl (8.4-10.2) L 10/26/24 09:28
Total Bilirubin 0.9 mg/dl (0.2-1.3) 10/24/24 16:55
AST 21 U/L (14-36) 10/24/24 16:55
ALT 22 U/L (0-35) 10/24/24 16:55
Alkaline Phosphatase 78 U/L (38-126) 10/24/24 16:55
Lipase 34 U/L (23-300) 10/24/24 16:55
Hepatitis C Antibody Negative (Negative) 10/25/24 05:22
Diagnostic Image Results:
10/[address] evidence for an acute inflammatory process in the abdomen or pelvis within the limitations of the lack of intravenous contrast. Suspicion for mild pneumonia/pneumonitis in the right middle lobe. She denies any change in medication,
recent travel or antibiotics.
Prior GI Procedures:
03/2024-flex- ahmad diverticulosis, normal mucosa bx neg colitis, neg lymphocytic/collagenous colitis, HP changes
03/31/23- colonoscopy - one polyp in sigmoid, diverticulosis bx polypoid change with HP changes
06/1015 EGD [facility] - Normal examined duodenum.
- Erythematous mucosa in the esophagus. Biopsied.
- Gastritis. Biopsied.
- The examination was otherwise normal.
bx no metaplasia, no inflammation
Assessment / Plan
-
Pt is a 64yo presents with hx psoriatic arthritis on chronic methotrexate and Cimzia , asthma/COPD, MVP, GERD, diverticulitis, prior , hysterectomy, nasal surgery with sudden onset nausea, vomiting, and diarrhea with fever up to 103.6.
Work up with c-diff ag+ tox neg(placed on Vanco), stool cx pending and norovirus, Giardia/crypto negative. In review with patient she denies prior GI issues but did have flex sig in 03/2024 for diarrhea with neg biopsy. She recently was doing well
with good bowel function and went to family member last . She ate at buffet with chicken parm, ziti and did not eat any salad. She denies any other food recently consumed that were tainted. She then began on Tuesday with
intractable diarrhea. It was initially slowing down as she was eating less then now persistent diarrhea with incontinence with any oral intakes. She has lost a few lbs and admits to some nausea with small amount of vomiting bile after onset of
diarrhea. She otherwise denies dysphagia, GERD, abdominal pain, constipation and noted with dark brown stools without red blood. CT on admission with 10/[address] evidence for an acute inflammatory process in the abdomen or pelvis within the
limitations of the lack of intravenous contrast. Suspicion for mild pneumonia/pneumonitis in the right middle lobe. She denies any change in medication, recent travel or antibiotics.
-sudden onset of diarrhea with nausea and vomiting with persistent symptoms
-persistent fever/leukocytosis with elevated neutrophils
-c-diff ag + tox neg
-CT with possible PNA
-chronic immunosuppression with Methotrexate/Cimzia for psoriatic arthritis
-hx diarrhea illness with flex sig 03/2024 with neg biopsy
other med problems:
-asthma/COPD
-GERD
-diverticulitis
-MVP
-prior /hysterectomy
PLAN:
etiology of symptoms related to infectious etiology in setting of chronic immunosuppression vs other
c-diff ag + tox neg agree with vanco started 10/25
await other cultures to exclude other pathogen- add vibrio to cultures
with no abdominal pain or colitis noted will advance diet to low residue/low lactose with ensure as no nutrition in last week
trend stool volume and frequency
cont IVF
blood cx neg so far
ID following -- cipro added 10/25
cont Pepcid - hold PPI with possible c-diff
if not improving and source unclear consider flex to rule out CMV with chronic immunosuppression
-
-
Thank you for consultation and allowing me to participate in the patient's care. Please call the construction coordinator GI physician during the after hours with any questions or concerns.
--- NOTE | 2024-10-26 12:08 | PN.CDI ---
CDI
- -
CDI:
Physician Documentation Request
Admit Date: 10/24/24 22:12
Dear Doctor Foreign,
Clinical Indicators:
Patient admitted with Sepsis, presenting with vomiting/diarrhea.
10/24 H & P, 'possible pneumonia read on CT abdomen; patient without cough/congestion or pulmonary symptoms to suggest this as source of infection-consider follow up CXR in 1-2 days'
10/25 CXR, 'Extensive right middle lobe pneumonia.'
Please clarify the following:
Pneumonia is a likely, suspected, probable diagnosis
Pneumonia was ruled out
Other, please specify
Use of terms such as suspected, likely, concern for, or probable are acceptable for a diagnosis that is being evaluated, monitored or treated as if it exists and can be coded in the inpatient setting, when documented at the time of discharge.
Thank you,
BENTON Lugo RN
CDI Specialist
available via tiger text
Please use your independent medical judgment in providing your response.
--- NOTE | 2024-10-26 13:59 | W.PN.ID1 ---
Date of Service
Date of Service: October 26, 2024
Today's Communication
Continue antibiotics.
Assessment / Plan
Gastroenteritis with nausea, vomiting and diarrhea
Leukocytosis
Asthma
COPD
GERD
Chronic low back pain
Mitral valve prolapse
Psoriatic arthritis
Recommendations:
Continue with empiric vancomycin, although not clear all symptomatology can be attributed to C. difficile, especially without toxin being found upon testing.
Differential also includes Salmonella infection (typhoid fever). Given ongoing diarrhea and fever, empiric ciprofloxacin has been started.
Await further culture data to guide further antimicrobial selection and potential de-escalation.
Trend white count. Follow fever curve. Follow stool output.
Chief Complaint
-: Fever and Other (Diarrhea)
Subjective / Review of Systems
Patient seen and examined. Reports feeling mildly improved today, although fevers are ongoing, and she persists with watery stool. She denies significant abdominal discomfort.
Vital Signs / Physical Exam
Vital Signs
Vital Signs
Temp Pulse Resp BP Pulse Ox
102.4 F H 100 16 137/69 92
10/26/24 10:43 10/26/24 07:47 10/26/24 07:47 10/26/24 07:26 10/26/24 07:47
Physical Exam
Constitutional: Comfortable and Non-toxic
Eyes: Sclera Anicteric
Cardiovascular: S1/S2; Negative S3/S4
Pulmonary: Clear and Non Labored
Gastrointestinal: Soft, Non Tender, Non Distended, Normal Bowel Sounds, No Rebound and No Guarding
Genito-Urinary: Negative Ramirez
Extremities: Negative Edema, Cyanosis or Erythema
Neurological: Awake and Alert
Psychological: Calm
Objective Data
Lab Data
Lab Results
10/26/24 05:25
10/26/24 09:28
Estimated Creat Clear 101 ml/min 10/26/24 09:28
Lactic Acid 0.5 mmol/L (0.7-2.0) L 10/24/24 22:12
Total Bilirubin 0.9 mg/dl (0.2-1.3) 10/24/24 16:55
AST 21 U/L (14-36) 10/24/24 16:55
ALT 22 U/L (0-35) 10/24/24 16:55
Alkaline Phosphatase 78 U/L (38-126) 10/24/24 16:55
Most recent labs reviewed.
Micro Results:
10/25/24 07:18 Salmonella/Shigella Culture - Preliminary
Feces/Stool Culture in Progress
Campylobacter Culture - Preliminary
Culture in Progress
Shiga Toxin Test - Pending
10/24/24 22:20 Blood Culture - Preliminary
Blood/Venous No Growth in 24 hours- Final report to follow
10/24/24 22:12 Blood Culture - Preliminary
Blood/Venous No Growth in 24 hours- Final report to follow
10/25/24 07:18 Cryptosporidium/Giardia - Final
Feces/Stool Negative for Cryptosporidium and/or Giardia Lamblia
antigens.
10/25/24 07:18 - Final
Feces/Stool Negative for Norovirus GI and GII.
10/25/24 07:18 C. difficile GDH Antigen & Toxins - Final
Feces/Stool C. difficile antigen positive, toxin negative.
Clostridium difficile present, but toxin not detected.
Patient may be a carrier, colonized with nontoxinogenic
strain or the level of toxin in sample is below detection
limits. This information should be used in conjunction with
the patient's clinical history.
10/24/24 18:39 Influenza Types A & B (NANDINI) - Final
Nasal Swab Negative for Influenza A & B, NAAT
Negative results must be combined with clinical observations
and patient history.
Nucleic Acid Amplification test (NAAT)performed on the
[employer] platform.
Imaging:
10/24/2024 CT abdomen/pelvis without contrast: No CT evidence for acute inflammatory process in the abdomen or pelvis within the limits of lack of IV contrast. Suspicion for mild pneumonia versus pneumonitis in the right middle lobe. Please see
full dictation for additional detail.
[2024-10-26] MEDS: LEVAQUIN 750 MG PO (14:42)
[2024-10-26 15:01] VITALS: BP 115/68
[2024-10-26] MEDS: LOVENOX 40 MG SC (17:07)
[2024-10-26 19:00] VITALS: BP 125/68
[2024-10-26] MEDS: NEURONTIN 300 MG PO (20:17)
[2024-10-26 23:00] VITALS: BP 127/58
[2024-10-27 03:00] VITALS: BP 132/60
[2024-10-27] MEDS: SYNTHROID 125 MCG PO (05:37)
[2024-10-27] MEDS: FIRVANQ 125 MG PO ×2 (05:38→12:03)
[2024-10-27 06:52] LABS: Hematocrit 31.9 % (37.0-47.0); Hemoglobin 11.6 g/dL (12.0-16.0); Mean Corp Hgb Conc. 36.4 g/dL (33.0-37.0); Mean Corpuscular Volume 88.1 fL (81.0-99.0); Platelet Count 203 10^3/uL (130-400); Red Blood Cell Count 3.62 10^6/uL (4.20-5.40); Red Cell Dist. Width 15.3 % (11.5-14.5); White Blood Cell Count 8.6 10^3/uL (4.8-10.8)
[2024-10-27 07:17] LABS: Blood Urea Nitrogen 6 mg/dl (7-17); Calcium 8.5 mg/dl (8.4-10.2); Carbon Dioxide 23 mmol/L (22-30); Chloride 106 mmol/L (98-107); Estimated Creatinine Clearance 101 ml/min; Glucose 105 mg/dl (70-99); Potassium 3.3 mmol/L (3.5-5.1); Sodium 134 mmol/L (135-145); eGFR > 60.00
[2024-10-27] MEDS: SYMBICORT 160/4.5 MCG INHALER 2 PUFF INH ×2 (07:32→18:24)
[2024-10-27 07:52] VITALS: BP 138/69
[2024-10-27] MEDS: LEVAQUIN 750 MG PO (08:02)
[2024-10-27] MEDS: CRESTOR 5 MG PO (08:03)
[2024-10-27] MEDS: ESTRACE 0.5 MG PO (08:03)
[2024-10-27] MEDS: PEPCID 40 MG PO (08:03)
[2024-10-27] MEDS: FOLVITE 3 MG PO (08:03)
[2024-10-27] MEDS: RELAFEN 750 MG PO ×2 (08:03→21:04)
[2024-10-27] MEDS: CLARITIN 10 MG PO (08:03)
--- NOTE | 2024-10-27 08:56 | W.PN.HOSP.TC ---
Today's Communication/Plan
-
see plan
Assessment / Plan
Assessment / Plan
Gen: NAD, AAOx3.
Eyes: EOMI, PERRLA, no scleral icterus.
Neck: supple.
CV: RRR, +S1/S2, no m/r/g.
Resp: CTAB, no rales, wheezes, or rhonchi.
Abd: continues to remain +BS, soft, NT, ND
Skin: No rashes.
Neuro: CN 2-12 intact, non-focal.
Psych: Normal mood and affect.
10/24/24 22:20 Blood/Venous Blood Culture - Preliminary
No Growth in 48 hours- Final report to follow
10/24/24 22:12 Blood/Venous Blood Culture - Preliminary
No Growth in 48 hours- Final report to follow
10/26/24 15:15 Urine Legionella Urinary Antigen - Final
Positive for L. pneumophila Ag
10/26/24 15:15 Urine Streptococcus pneumoniae Antigen (M - Final
Negative for Streptococcus pneumoniae antigen.
A negative result does not exclude infection with
Streptococcus pneumoniae. Clinical correlation is
recommended.
10/25/24 07:18 Feces/Stool Salmonella/Shigella Culture - Preliminary
Culture in Progress
10/25/24 07:18 Feces/Stool Campylobacter Culture - Preliminary
Culture in Progress
10/25/24 07:18 Feces/Stool Cryptosporidium/Giardia - Final
Negative for Cryptosporidium and/or Giardia Lamblia
antigens.
10/25/24 07:18 Feces/Stool - Final
Negative for Norovirus GI and GII.
10/25/24 07:18 Feces/Stool C. difficile GDH Antigen & Toxins - Final
C. difficile antigen positive, toxin negative.
Clostridium difficile present, but toxin not detected.
Patient may be a carrier, colonized with nontoxinogenic
strain or the level of toxin in sample is below detection
limits. This information should be used in conjunction with
the patient's clinical history.
10/24/24 18:39 Nasal Swab Influenza Types A & B (NANDINI) - Final
Negative for Influenza A & B, NAAT
Negative results must be combined with clinical observations
and patient history.
Nucleic Acid Amplification test (NAAT)performed on the
[employer] platform.
CT A/P: No CT evidence for an acute inflammatory process in the abdomen or pelvis within the limitations of the lack of intravenous contrast. Suspicion for mild pneumonia/pneumonitis in the right middle lobe.
CXR: Extensive right middle lobe pneumonia.
Sepsis due to acute Legionella PNA:
-presented with N/V/D with fever with concern for gastroenteritis
-imaging above
-Legionella Ag POS
-COVID/Flu NEG
-BCxs NGTD
-C diff Ag POS, toxin NEG. As the pt is immunocompromised and had profuse diarrhea, cont PO Vanco
-Stool studies: Norovirus NEG, Cryptosporidium/Giardia negative
-s/p IVFs
-cont Levaquin
-ID/GI following
Other problems:
GERD: cont PPI
Hypokalemia: IV K
Hypothyroidism: cont Levoxyl
Essential hypertension: Losartan was held due to hypotension
Hyperlipidemia: cont statin
Psoriatic arthritis: cont Relafen/gabapentin. Home MTX on hold, on Cimzia outpt.
FULL/Lovenox
Anticipated Discharge: 24 - 48 hours
Subjective/Interval History
-
Date of Service: October 27, 2024
diarrhea improving
Objective Data
-
Labs:
Laboratory Results
10/27/24
06:36
WBC 8.6
Hgb 11.6 L
Hct 31.9 L
Plt Count 203
Sodium 134 L
Potassium 3.3 L
Chloride 106
Carbon Dioxide 23
BUN 6 L
Creatinine 0.6
Glucose 105 H
Calcium 8.5
Vital Signs:
Vital Signs
Temp Pulse Resp BP Pulse Ox
98.2 F 87 16 138/69 96
10/27/24 07:52 10/27/24 07:52 10/27/24 07:52 10/27/24 07:52 10/27/24 07:52
I&O
10/26/24 10/27/24 10/28/24
06:59 06:59 06:59
Intake Total 1800 / 1800 550 / 550
Balance 1800 / 1800 550 / 550
--- NOTE | 2024-10-27 10:09 | W.PN.GI.CBS2 ---
Today's Communication / Plan
-
LRD
Continue Levaquin
Added probiotics
Assessment / Plan
-
Pt is a 64yo presents with hx psoriatic arthritis on chronic methotrexate and Cimzia , asthma/COPD, MVP, GERD, diverticulitis, prior , hysterectomy, nasal surgery with sudden onset nausea, vomiting, and diarrhea with fever up to 103.6.
Work up with c-diff ag+ tox neg(placed on Vanco), stool cx pending and norovirus, Giardia/crypto negative. In review with patient she denies prior GI issues but did have flex sig in 03/2024 for diarrhea with neg biopsy. She recently was doing well
with good bowel function and went to family member last . She ate at buffet with chicken parm, ziti and did not eat any salad. She denies any other food recently consumed that were tainted. She then began on Tuesday with
intractable diarrhea. It was initially slowing down as she was eating less then now persistent diarrhea with incontinence with any oral intakes. She has lost a few lbs and admits to some nausea with small amount of vomiting bile after onset of
diarrhea. She otherwise denies dysphagia, GERD, abdominal pain, constipation and noted with dark brown stools without red blood. CT on admission with 10/[address] evidence for an acute inflammatory process in the abdomen or pelvis within the
limitations of the lack of intravenous contrast. Suspicion for mild pneumonia/pneumonitis in the right middle lobe. She denies any change in medication, recent travel or antibiotics.
-sudden onset of diarrhea with nausea and vomiting with persistent symptoms
-persistent fever/leukocytosis with elevated neutrophils
-c-diff ag + tox neg
-CT with possible PNA
-chronic immunosuppression with Methotrexate/Cimzia for psoriatic arthritis
-hx diarrhea illness with flex sig 03/2024 with neg biopsy
other med problems:
-asthma/COPD
-GERD
-diverticulitis
-MVP
-prior /hysterectomy
PLAN:
etiology of symptoms related to infectious etiology in setting of chronic immunosuppression vs other
Most likely related to Legionella urine antigen came back positive for it stool cultures are still pending.
Continue Levaquin. ID on board will defer to them to see if she needs to be switched to macrolides
c-diff ag + tox neg on vanco started 10/25 but I think symptoms are less likely from C. difficile colitis with toxin negative
consider flex to rule out CMV with chronic immunosuppression if sx persist
Continue low residue diet
added probiotics
Potassium being supplemented for hypokalemia
Subjective
Subjective
Date of Service: October 27, 2024
Symptoms are starting to improve slightly she says that the stools are less frequent and slightly more formed now and also was able to eat her first meal today. Abdominal cramping is also improving. Fever is also resolving last fever spike was
yesterday around 10 AM
Urine antigen came back positive for Legionella
Objective
Data Reviewed
Laboratory Data:
Laboratory Results
10/27/24 06:36
10/27/24 06:36
Laboratory Results
Total Bilirubin 0.9 mg/dl (0.2-1.3) 10/24/24 16:55
AST 21 U/L (14-36) 10/24/24 16:55
ALT 22 U/L (0-35) 10/24/24 16:55
Alkaline Phosphatase 78 U/L (38-126) 10/24/24 16:55
Lipase 34 U/L (23-300) 10/24/24 16:55
Vital Signs and I&O:
Vital Signs
Temp Pulse Resp BP Pulse Ox
98.2 F 87 16 138/69 96
10/27/24 07:52 10/27/24 07:52 10/27/24 07:52 10/27/24 07:52 10/27/24 07:52
I&O
10/26/24 10/27/24 10/28/24
06:59 06:59 06:59
Intake Total 1800 / 1800 550 / 550
Balance 1800 / 1800 550 / 550
Physical Exam
Physical Exam
Cardiology: Normal Sinus Rhythm
Pulmonary: Clear
GI: Soft, Non Distended, Non Tender and Normal Bowel Sounds
[2024-10-27] MEDS: KCL 270 MEQ IV (10:20)
[2024-10-27] MEDS: VISBIOME 2 CAP PO (12:03)
--- NOTE | 2024-10-27 12:27 | CM ---
Patient seen at bedside
IA completed
CM role explained
Lives alone in a 2 story home, 2 steps to enter, flight stairs to bedroom
PLOF: Independent
DME: Cane, walker, CPAP
Has had [facility] in past, has had oupatient rehab in past
Denies insecurities
PCP: Dr. Rothman
Pharmacy: [facility], [place]
PLAN: home, currently no needs, CM to continue to follow
--- NOTE | 2024-10-27 14:01 | W.PN.ID1 ---
Date of Service
Date of Service: October 27, 2024
Today's Communication
Replace levofloxacin with azithromycin.
dc po vanco.
Assessment / Plan
Legionella pneumonia
- Replace levofloxacin with azithromycin 500mg po qd.
Diarrhea - suspect from Legionnaire's
- C. diff Ag+, toxin neg.
- Stool cx neg to date
- DC po Vancomycin.
Leukocytosis - resolved
Fever resolving
Asthma
COPD
GERD
Chronic low back pain
Mitral valve prolapse
Psoriatic arthritis
Chief Complaint
-: Fever, Pneumonia and Other (Diarrhea)
Subjective / Review of Systems
Still with diarrhea.
Vital Signs / Physical Exam
Vital Signs
Vital Signs
Temp Pulse Resp BP Pulse Ox
98.4 F 87 16 138/69 96
10/27/24 11:12 10/27/24 07:52 10/27/24 07:52 10/27/24 07:52 10/27/24 07:52
Selected Entries
10/26/24
10:43
Temp 102.4 F H
Physical Exam
Constitutional: No Acute Distress
Pulmonary: Rales (Right lung crackles)
Gastrointestinal: Soft, Non Tender and Non Distended
Extremities: Negative Edema
Neurological: AO x 3
Objective Data
Lab Data
Lab Results
10/27/24 06:36
10/27/24 06:36
Estimated Creat Clear 101 ml/min 10/27/24 06:36
Lactic Acid 0.5 mmol/L (0.7-2.0) L 10/24/24 22:12
Total Bilirubin 0.9 mg/dl (0.2-1.3) 10/24/24 16:55
AST 21 U/L (14-36) 10/24/24 16:55
ALT 22 U/L (0-35) 10/24/24 16:55
Alkaline Phosphatase 78 U/L (38-126) 10/24/24 16:55
Most recent labs reviewed.
Micro Results:
10/25/24 07:18 Salmonella/Shigella Culture - Final
Feces/Stool No Salmonella, Shigella, Aeromonas or Plesiomonas species
isolated.
Campylobacter Culture - Final
No Campylobacter species isolated.
Shiga Toxin Test - Pending
10/24/24 22:20 Blood Culture - Preliminary
Blood/Venous No Growth in 48 hours- Final report to follow
10/24/24 22:12 Blood Culture - Preliminary
Blood/Venous No Growth in 48 hours- Final report to follow
10/26/24 15:15 Legionella Urinary Antigen - Final
Urine Positive for L. pneumophila Ag
Streptococcus pneumoniae Antigen (M - Final
Negative for Streptococcus pneumoniae antigen.
A negative result does not exclude infection with
Streptococcus pneumoniae. Clinical correlation is
recommended.
10/25/24 07:18 Cryptosporidium/Giardia - Final
Feces/Stool Negative for Cryptosporidium and/or Giardia Lamblia
antigens.
10/25/24 07:18 - Final
Feces/Stool Negative for Norovirus GI and GII.
10/25/24 07:18 C. difficile GDH Antigen & Toxins - Final
Feces/Stool C. difficile antigen positive, toxin negative.
Clostridium difficile present, but toxin not detected.
Patient may be a carrier, colonized with nontoxinogenic
strain or the level of toxin in sample is below detection
limits. This information should be used in conjunction with
the patient's clinical history.
10/24/24 18:39 Influenza Types A & B (NANDINI) - Final
Nasal Swab Negative for Influenza A & B, NAAT
Negative results must be combined with clinical observations
and patient history.
Nucleic Acid Amplification test (NAAT)performed on the
[employer] platform.
Imaging:
10/24/2024 CT abdomen/pelvis without contrast: No CT evidence for acute inflammatory process in the abdomen or pelvis within the limits of lack of IV contrast. Suspicion for mild pneumonia versus pneumonitis in the right middle lobe. Please see
full dictation for additional detail.
[2024-10-27 15:27] VITALS: BP 127/73
[2024-10-27] MEDS: LOVENOX 40 MG SC (17:49)
[2024-10-27] MEDS: NEURONTIN 300 MG PO (21:03)
[2024-10-27 23:00] VITALS: BP 121/66
[2024-10-28] MEDS: SYNTHROID 125 MCG PO (04:36)
[2024-10-28 06:00] LABS: Hematocrit 32.7 % (37.0-47.0); Hemoglobin 11.5 g/dL (12.0-16.0); Mean Corp Hgb Conc. 35.2 g/dL (33.0-37.0); Mean Corpuscular Hgb 31.2 pg (27.0-31.0); Mean Corpuscular Volume 88.6 fL (81.0-99.0); Mean Platelet Volume 10.2 fL (7.4-10.4); Platelet Count 252 10^3/uL (130-400); Red Blood Cell Count 3.69 10^6/uL (4.20-5.40); Red Cell Dist. Width 15.2 % (11.5-14.5); White Blood Cell Count 8.6 10^3/uL (4.8-10.8)
[2024-10-28 06:25] LABS: Blood Urea Nitrogen 8 mg/dl (7-17); Calcium 8.6 mg/dl (8.4-10.2); Carbon Dioxide 23 mmol/L (22-30); Chloride 112 mmol/L (98-107); Estimated Creatinine Clearance 101 ml/min; Glucose 105 mg/dl (70-99); Potassium 3.7 mmol/L (3.5-5.1); Sodium 139 mmol/L (135-145); eGFR > 60.00
[2024-10-28] MEDS: SYMBICORT 160/4.5 MCG INHALER 2 PUFF INH (07:26)
[2024-10-28 07:37] VITALS: BP 128/66
--- NOTE | 2024-10-28 09:14 | W.PN.GI.CBS2 ---
Today's Communication / Plan
-
Okay for DC from [facility] follow-up in clinic in 2 to 3 months
Assessment / Plan
-
Pt is a 64yo presents with hx psoriatic arthritis on chronic methotrexate and Cimzia , asthma/COPD, MVP, GERD, diverticulitis, prior , hysterectomy, nasal surgery with sudden onset nausea, vomiting, and diarrhea with fever up to 103.6.
Work up with c-diff ag+ tox neg(placed on Vanco), stool cx pending and norovirus, Giardia/crypto negative. In review with patient she denies prior GI issues but did have flex sig in 03/2024 for diarrhea with neg biopsy. She recently was doing well
with good bowel function and went to family member last . She ate at buffet with chicken parm, ziti and did not eat any salad. She denies any other food recently consumed that were tainted. She then began on Tuesday with
intractable diarrhea. It was initially slowing down as she was eating less then now persistent diarrhea with incontinence with any oral intakes. She has lost a few lbs and admits to some nausea with small amount of vomiting bile after onset of
diarrhea. She otherwise denies dysphagia, GERD, abdominal pain, constipation and noted with dark brown stools without red blood. CT on admission with 10/[address] evidence for an acute inflammatory process in the abdomen or pelvis within the
limitations of the lack of intravenous contrast. Suspicion for mild pneumonia/pneumonitis in the right middle lobe. She denies any change in medication, recent travel or antibiotics.
-sudden onset of diarrhea with nausea and vomiting with persistent symptoms
-persistent fever/leukocytosis with elevated neutrophils
-c-diff ag + tox neg
-CT with possible PNA
-chronic immunosuppression with Methotrexate/Cimzia for psoriatic arthritis
-hx diarrhea illness with flex sig 03/2024 with neg biopsy
other med problems:
-asthma/COPD
-GERD
-diverticulitis
-MVP
-prior /hysterectomy
PLAN:
etiology of symptoms related to infectious etiology in setting of chronic immunosuppression vs other
Most likely related to Legionella urine antigen came back positive for it stool cultures are still pending.
Noted input from Dr. Alonso she was switched to azithromycin for Legionella yesterday
c-diff ag + tox neg
Continue low residue diet
added probiotics
Okay to DC home from [facility] and follow-up in clinic in 2 to 3 months
Will s/o and will be available as needed
Subjective
Subjective
Date of Service: October 28, 2024
Symptoms have markedly improved her diarrhea is improving, stool is getting more formed, her abdominal pain is also improving.
Objective
Data Reviewed
Laboratory Data:
Laboratory Results
10/28/24 04:27
10/28/24 04:27
Laboratory Results
Total Bilirubin 0.9 mg/dl (0.2-1.3) 10/24/24 16:55
AST 21 U/L (14-36) 10/24/24 16:55
ALT 22 U/L (0-35) 10/24/24 16:55
Alkaline Phosphatase 78 U/L (38-126) 10/24/24 16:55
Lipase 34 U/L (23-300) 10/24/24 16:55
Vital Signs and I&O:
Vital Signs
Temp Pulse Resp BP Pulse Ox
98.3 F 78 14 128/66 95
10/28/24 07:37 10/28/24 07:37 10/28/24 07:37 10/28/24 07:37 10/28/24 07:37
I&O
10/27/24 10/28/24 10/29/24
06:59 06:59 06:59
Intake Total 550 / 550 720 / 720
Balance 550 / 550 720 / 720
Physical Exam
Physical Exam
Cardiology: Normal Sinus Rhythm
Pulmonary: Clear
GI: Soft, Non Distended, Non Tender and Normal Bowel Sounds
--- NOTE | 2024-10-28 09:30 | W.PN.ID1 ---
Date of Service
Date of Service: October 28, 2024
Today's Communication
- Continue azithromycin 500mg po qd (2) through .
- Can dc home.
Assessment / Plan
Legionella pneumonia
- Continue azithromycin 500mg po qd (2) through ,
Diarrhea due to Legionnaire's , resolving
- C. diff Ag+, toxin neg.
- Stool cx neg to date
Leukocytosis - resolved
Fever resolved
Asthma
COPD
GERD
Chronic low back pain
Mitral valve prolapse
Psoriatic arthritis
Chief Complaint
-: Fever, Pneumonia and Other (Diarrhea)
Subjective / Review of Systems
Feels much improved. Diarrhea resovling.
Vital Signs / Physical Exam
Vital Signs
Vital Signs
Temp Pulse Resp BP Pulse Ox
98.3 F 78 14 128/66 95
10/28/24 07:37 10/28/24 07:37 10/28/24 07:37 10/28/24 07:37 10/28/24 07:37
Physical Exam
Constitutional: No Acute Distress and Comfortable
Pulmonary: Rales (mild crackles right lung)
Gastrointestinal: Soft, Non Tender and Non Distended
Extremities: Negative Edema
Neurological: AO x 3
Objective Data
Lab Data
Lab Results
10/28/24 04:27
10/28/24 04:27
Estimated Creat Clear 101 ml/min 10/28/24 04:27
Lactic Acid 0.5 mmol/L (0.7-2.0) L 10/24/24 22:12
Total Bilirubin 0.9 mg/dl (0.2-1.3) 10/24/24 16:55
AST 21 U/L (14-36) 10/24/24 16:55
ALT 22 U/L (0-35) 10/24/24 16:55
Alkaline Phosphatase 78 U/L (38-126) 10/24/24 16:55
Most recent labs reviewed.
Micro Results:
10/24/24 22:20 Blood Culture - Preliminary
Blood/Venous No Growth in 72 hours- Final report to follow
10/24/24 22:12 Blood Culture - Preliminary
Blood/Venous No Growth in 72 hours- Final report to follow
10/25/24 07:18 Salmonella/Shigella Culture - Final
Feces/Stool No Salmonella, Shigella, Aeromonas or Plesiomonas species
isolated.
Campylobacter Culture - Final
No Campylobacter species isolated.
Shiga Toxin Test - Pending
10/26/24 15:15 Legionella Urinary Antigen - Final
Urine Positive for L. pneumophila Ag
Streptococcus pneumoniae Antigen (M - Final
Negative for Streptococcus pneumoniae antigen.
A negative result does not exclude infection with
Streptococcus pneumoniae. Clinical correlation is
recommended.
10/25/24 07:18 Cryptosporidium/Giardia - Final
Feces/Stool Negative for Cryptosporidium and/or Giardia Lamblia
antigens.
10/25/24 07:18 - Final
Feces/Stool Negative for Norovirus GI and GII.
10/25/24 07:18 C. difficile GDH Antigen & Toxins - Final
Feces/Stool C. difficile antigen positive, toxin negative.
Clostridium difficile present, but toxin not detected.
Patient may be a carrier, colonized with nontoxinogenic
strain or the level of toxin in sample is below detection
limits. This information should be used in conjunction with
the patient's clinical history.
10/24/24 18:39 Influenza Types A & B (NANDINI) - Final
Nasal Swab Negative for Influenza A & B, NAAT
Negative results must be combined with clinical observations
and patient history.
Nucleic Acid Amplification test (NAAT)performed on the
[employer] platform.
Imaging:
10/24/2024 CT abdomen/pelvis without contrast: No CT evidence for acute inflammatory process in the abdomen or pelvis within the limits of lack of IV contrast. Suspicion for mild pneumonia versus pneumonitis in the right middle lobe. Please see
full dictation for additional detail.
Care Review
Plan reviewed with: Physician (Dr. Carrasquillo)
[2024-10-28] MEDS: FOLVITE 3 MG PO (09:31)
[2024-10-28] MEDS: PEPCID 40 MG PO (09:31)
[2024-10-28] MEDS: CRESTOR 5 MG PO (09:31)
[2024-10-28] MEDS: ZITHROMAX 500 MG PO (09:31)
[2024-10-28] MEDS: ESTRACE 0.5 MG PO (09:32)
[2024-10-28] MEDS: RELAFEN 750 MG PO (09:32)
[2024-10-28] MEDS: VISBIOME 2 CAP PO (09:32)
[2024-10-28] MEDS: CLARITIN 10 MG PO (09:32)
--- NOTE | 2024-10-28 09:59 | W.PN.HOSP.TC ---
Today's Communication/Plan
-
d/c
Assessment / Plan
Assessment / Plan
Gen: NAD, AAOx3.
Eyes: EOMI, PERRLA, no scleral icterus.
Neck: supple.
CV: remains RRR, +S1/S2, no m/r/g.
Resp: remains CTAB, no rales, wheezes, or rhonchi.
Abd: +BS, soft, NT, ND
Skin: No rashes.
Neuro: CN 2-12 intact, non-focal.
Psych: Normal mood and affect.
10/24/24 22:20 Blood/Venous Blood Culture - Preliminary
No Growth in 72 hours- Final report to follow
10/24/24 22:12 Blood/Venous Blood Culture - Preliminary
No Growth in 72 hours- Final report to follow
10/25/24 07:18 Feces/Stool Salmonella/Shigella Culture - Final
No Salmonella, Shigella, Aeromonas or Plesiomonas species
isolated.
10/25/24 07:18 Feces/Stool Campylobacter Culture - Final
No Campylobacter species isolated.
10/26/24 15:15 Urine Legionella Urinary Antigen - Final
Positive for L. pneumophila Ag
10/26/24 15:15 Urine Streptococcus pneumoniae Antigen (M - Final
Negative for Streptococcus pneumoniae antigen.
A negative result does not exclude infection with
Streptococcus pneumoniae. Clinical correlation is
recommended.
10/25/24 07:18 Feces/Stool Cryptosporidium/Giardia - Final
Negative for Cryptosporidium and/or Giardia Lamblia
antigens.
10/25/24 07:18 Feces/Stool - Final
Negative for Norovirus GI and GII.
10/25/24 07:18 Feces/Stool C. difficile GDH Antigen & Toxins - Final
C. difficile antigen positive, toxin negative.
Clostridium difficile present, but toxin not detected.
Patient may be a carrier, colonized with nontoxinogenic
strain or the level of toxin in sample is below detection
limits. This information should be used in conjunction with
the patient's clinical history.
10/24/24 18:39 Nasal Swab Influenza Types A & B (NANDINI) - Final
Negative for Influenza A & B, NAAT
Negative results must be combined with clinical observations
and patient history.
Nucleic Acid Amplification test (NAAT)performed on the
[employer] ID NOW platform.
CT A/P: No CT evidence for an acute inflammatory process in the abdomen or pelvis within the limitations of the lack of intravenous contrast. Suspicion for mild pneumonia/pneumonitis in the right middle lobe.
CXR: Extensive right middle lobe pneumonia.
Sepsis due to acute Legionella PNA:
-presented with N/V/D with fever with concern for gastroenteritis
-imaging above
-Legionella Ag POS
-COVID/Flu NEG
-BCxs NGTD
-C diff Ag POS, toxin NEG. As the pt is immunocompromised and had profuse diarrhea was on PO Vanco, now stopped by ID
-Stool studies: Norovirus NEG, Cryptosporidium/Giardia/Salmonella/Shigella/Aeromonas/Plesiomonas/Campylobacter negative
-s/p IVFs
-was on Levaquin, d/c on Azithro through 11/05/24 as per ID
-ID/GI following
Other problems:
GERD: cont PPI
Hypokalemia, resovled
Hypothyroidism: cont Levoxyl
Essential hypertension: Losartan was held due to hypotension. Based on BP trends will not restart on d/c. Monitor BP daily outpt.
Hyperlipidemia: cont statin
Psoriatic arthritis: cont Relafen/gabapentin. Home MTX on hold, on Cimzia outpt.
FULL/Lovenox
Total time spent on d/c = 34 min. This included today's physical exam, progress note, review of laboratory and diagnostic data, preparation of discharge documents and prescriptions, and discussions about the pt's hospital course and discharge plan
with the patient and other clinical medical assistant involved in the patient's care.
Anticipated Discharge: Today
Subjective/Interval History
-
Date of Service: October 28, 2024
Diarrhea has resolved.
Objective Data
-
Labs:
Laboratory Results
10/28/24
04:27
WBC 8.6
Hgb 11.5 L
Hct 32.7 L
Plt Count 252 D
Sodium 139
Potassium 3.7
Chloride 112 H
Carbon Dioxide 23
BUN 8
Creatinine 0.5 L
Glucose 105 H
Calcium 8.6
Vital Signs:
Vital Signs
Temp Pulse Resp BP Pulse Ox
98.3 F 78 14 128/66 95
10/28/24 07:37 10/28/24 07:37 10/28/24 07:37 10/28/24 07:37 10/28/24 07:37
I&O
10/27/24 10/28/24 10/29/24
06:59 06:59 06:59
Intake Total 550 / 550 720 / 720
Balance 550 / 550 720 / 720
--- NOTE | 2024-10-28 11:22 | CM ---
Patient discharge to home today
IMM explained & signed. In chart
plan: Home, no needs
son to transport
[2024-10-28 11:45] VITALS: BP 103/69
--- NOTE | 2024-10-28 12:16 | W.DCSUMMARY ---
Discharge Summary
Discharge Data
Date of Admission: 10/24/24
Date of Discharge: 10/28/24
-
Pending Results: No
Hospital Course
Primary diagnoses:
Sepsis due to acute Legionella pneumonia
Secondary diagnoses:
Gastroesophageal reflux disease
Hypokalemia
Hypothyroidism
Essential hypertension
Hyperlipidemia
Psoriatic arthritis
Consultants:
Infectious disease
Gastroenterology
Imaging:
CT A/P: No CT evidence for an acute inflammatory process in the abdomen or pelvis within the limitations of the lack of intravenous contrast. Suspicion for mild pneumonia/pneumonitis in the right middle lobe.
CXR: Extensive right middle lobe pneumonia.
Hospital course: 64-year-old female who presented with chief complaints of fever, nausea, vomiting, diarrhea as in HPI admission. Initially the diagnosis was gastroenteritis. Patient's C. difficile antigen was positive but her toxin was negative.
She was placed on oral vancomycin. She was seen in consultation by infectious disease and ciprofloxacin was added. Chest x-ray above. Legionella urinary antigen was positive. Blood cultures were no growth to date. She was placed on Levaquin and
her diarrhea resolved. She was discharged in medically stable condition on azithromycin through 11/05/24 as per ID.
Discharge Plan
-
Patient Disposition: Home (Routine Discharge)
Discharge Diagnosis/Procedures: Sepsis due to Legionella pneumonia
Condition: Good
Diet: Low Sodium and Other diet
Additional Diets: Heart healthy
Activity: As tolerated
Driving Restrictions: As prior to admission
Bathing Restrictions: None
Referrals:
Larry Rothman Jr., DO [Family Provider, Internal Medicine] - in less than 1 week
Prescriptions:
New
azithromycin 250 mg Tablet
500 mg PO DAILY Qty: 18 0RF
Continued
Abbie 30 MG tablet
180 mg PO DAILY
gabapentin 300 MG capsule
300 mg PO HS
estradiol 0.5 MG tablet
0.5 mg PO DAILY
nabumetone 750 mg Tablet
750 mg PO BID
famotidine 40 mg Tablet
40 mg PO DAILY
levothyroxine 125 mcg Tablet
125 mcg PO DAILY
folic acid 1 mg Tablet
3 mg PO DAILY
rosuvastatin 5 mg Tablet
5 mg PO DAILY
dereje-phsal-hyo 118-10-40.8-36 mg Capsule
1 tab PO QID PRN (Reason: cystic bladder)
fluticasone furoate-vilanterol [Breo Ellipta] 200-25 mcg/dose Blister With Device
1 inh INHALATION 1XD
Cimzia 200 mg/mL Syringe Kit
200 mg SC Q2W
inulin-vitamin D3 50 mcg tablet
50 mcg PO DAILY
Discontinued
methotrexate sodium [Methotrexate (Anti-Rheumatic)] 2.5 mg Tablet
20 mg PO QWEEK
losartan 25 mg Tablet
25 mg PO DAILY
Discharge Orders:
Discharge Patient (As Directed); Ordered 10/28/24
Ordered By: Garo Carrasquillo
Discharge Date and Time
Discharge Date/Time: 10/28/24 11:54
Print Language: FAROESE
== END 2024-10-28 11:54 | disposition home or self-care (01) | DRG 871 ==
LOC: 3 WEST ACU 22:12
PROVIDERS: Physician Assistant Medical; Registered Nurse; ADMITTING PHYSICIAN Student in an Organized Health Care Education/Training Program; ATTENDING PHYSICIAN Internal Medicine; EMERGENCY PHYSICIAN Student in an Organized Health Care Education/Training Program; FAMILY PHYSICIAN Family Medicine; OTHER PHYSICIAN Internal Medicine Gastroenterology; OTHER PHYSICIAN Internal Medicine Infectious Disease
PROC: 5A09357 Assistance with Respiratory Ventilation, Less than 24 Consecutive Hours, Continuous Positive Airway Pressure (ICD-10-PCS; 2024-10-26)
DX: A41.59 Other Gram-negative sepsis (principal); A48.1 Legionnaires' disease; J18.9 Pneumonia, unspecified organism; D84.821 Immunodeficiency due to drugs; J44.0 Chronic obstructive pulmonary disease with (acute) lower respiratory infection; A04.72 Enterocolitis due to Clostridium difficile, not specified as recurrent; L40.50 Arthropathic psoriasis, unspecified; K21.9 Gastro-esophageal reflux disease without esophagitis; E03.9 Hypothyroidism, unspecified; I10 Essential (primary) hypertension; E78.5 Hyperlipidemia, unspecified; G89.29 Other chronic pain; F17.210 Nicotine dependence, cigarettes, uncomplicated; M54.50 Low back pain, unspecified; I34.1 Nonrheumatic mitral (valve) prolapse; R19.7 Diarrhea, unspecified; E87.6 Hypokalemia; Z60.2 Problems related to living alone; Z90.710 Acquired absence of both cervix and uterus; Z88.8 Allergy status to other drugs, medicaments and biological substances; Z88.1 Allergy status to other antibiotic agents; Z91.041 Radiographic dye allergy status; Z88.5 Allergy status to narcotic agent; Z88.0 Allergy status to penicillin; Z91.013 Allergy to seafood; Z79.890 Hormone replacement therapy; Z79.69 Long term (current) use of other immunomodulators and immunosuppressants; Z79.631 Long term (current) use of antimetabolite agent; Z11.52 Encounter for screening for COVID-19; Z86.0100 Personal history of colon polyps, unspecified
CPT/HCPCS: 71046; 74176; 80048; 80053; 83605; 83690; 85025; 85027; 86803; 87040; 87045; 87046; 87324; 87328; 87329; 87427; 87449; 87502; 87798; 87811; 87899; 94640; 96361; 96374; 96375; 96376; 99285; 99406

== ENCOUNTER → 2025-01-18 13:56 | Outpatient (REF) | payer MEDICARE, OTHER, SELFPAY | LOC: RAD 13:56 | PROVIDERS: ATTENDING PHYSICIAN Internal Medicine Critical Care Medicine; FAMILY PHYSICIAN Family Medicine | DX: M79.89 Other specified soft tissue disorders (principal); R06.02 Shortness of breath | CPT/HCPCS: 93971 ==

== ENCOUNTER → 2025-01-29 10:35 | Outpatient (REF) | payer MEDICARE, OTHER, SELFPAY | LOC: HWRAD 10:35 | PROVIDERS: ATTENDING PHYSICIAN Internal Medicine Critical Care Medicine; FAMILY PHYSICIAN Family Medicine | DX: J43.2 Centrilobular emphysema (principal); R91.8 Other nonspecific abnormal finding of lung field | CPT/HCPCS: 71250 ==

== ENCOUNTER → 2025-02-21 12:52 | Outpatient (REF) | payer MEDICARE, OTHER, SELFPAY | LOC: HWRCS 12:52 | PROVIDERS: ATTENDING PHYSICIAN Internal Medicine Critical Care Medicine; FAMILY PHYSICIAN Family Medicine | DX: R06.02 Shortness of breath (principal) | CPT/HCPCS: 93306 ==

== ENCOUNTER 2025-02-25 06:16 | Day surgery (SDC) | payer MEDICARE, OTHER, SELFPAY ==
[2025-02-22 14:15] VITALS: BMI 27.5
[2025-02-25] VITALS (10 sets, daily range): BP systolic 140–156; BP diastolic 65–89; BMI 27.7
[2025-02-25] MEDS: NSS 500 IV (11:27)
[2025-02-25] MEDS: VENTOLIN NEBULES 2.5 MG INH (12:01)
== END 2025-02-25 15:43 | disposition home or self-care (01) ==
LOC: SDS 06:16
PROVIDERS: ATTENDING PHYSICIAN Internal Medicine Critical Care Medicine
DX: R91.1 Solitary pulmonary nodule (principal); J98.11 Atelectasis; R59.1 Generalized enlarged lymph nodes
CPT/HCPCS: 31629; 31627; 31623; 31624; 31652; 31654; 71045; 76000; 87070; 87102; 87116; 87205; 88112; 88173; 94640; C1887

== ENCOUNTER 2025-02-26 19:12 | Inpatient (IN) | payer MEDICARE, OTHER, SELFPAY ==
[2025-02-26 16:09] VITALS: BP 165/80
[2025-02-26 16:35] VITALS: BP 151/93
--- NOTE | 2025-02-26 16:47 | ED.GENMED ---
History of Present Illness
<Felipe Truong PA-C - Last Filed: 02/26/25 19:01>
General
Chief Complaint: Breathing Problem
Time Seen by Provider: 02/26/25 16:29
History of Present Illness
History of Present Illness:
64-year-old female presents emergency department for pneumothorax after a bronchoscopy was performed yesterday. Small pneumothorax was identified postprocedural films today repeat x-ray today showed increased size. She reports right-sided chest
pain and dyspnea. She also reports waking up today with headache and vomiting, prior history of migraines that were under control for a long time. Denies any hemoptysis. Does not take blood thinners
Past History
<Felipe Truong PA-C - Last Filed: 02/26/25 19:01>
Past History
ED Past Medical History: Asthma, COPD, GERD, Other (low back pain, Mitral and aortic prolapse) and Other (Psoriatic arthritis)
ED Past Surgical History: , Gynecological (Hysterectomy) and Other (nasal surgery)
Patient has exhibited threatening behavior?: No
Social History
Tobacco: Smoker
Alcohol: Occasional
Drug: None
Personal:
Living: alone
Review of Systems
<Felipe Truong PA-C - Last Filed: 02/26/25 19:01>
Review of Systems
Allergies reviewed?: Yes
All Other Systems: ROS reviewed and negative except as documented in HPI and ROS
Phy Exam
<Felipe Truong PA-C - Last Filed: 02/26/25 19:01>
Physical Exam
Physical Exam:
GEN: Well appearing, NAD, WDWN
HEENT: Oral mucosa moist, no scleral icterus
Cardiac: Regular rate
Lung: Mildly tachypneic, no respiratory distress or accessory muscle use, no adventitious lung sounds
MSK: No gross deformity or injuries
Skin: Good color, no pallor or jaundice, no rashes
Neuro: AO x3, moves all extremities freely
Psych: Calm, cooperative
Scores
<Felipe Truong PA-C - Last Filed: 02/26/25 19:01>
Heart Failure Risk
Heart Failure Risk Score: Not Applicable
Course
<Felipe Truong PA-C - Last Filed: 02/26/25 19:01>
Orders/Labs/Results
Orders:
Orders
02/26/25 16:41
0.9% Sodium Chloride 1000 ml [Nss] 1,000 ml IV BOLUS
Metoclopramide [Reglan] 10 mg IV NOW STA
02/26/25 17:16
Complete Blood Count/With Diff Urgent
Comprehensive Metabolic Panel Urgent
02/26/25 18:33
Ibuprofen [Motrin] 600 mg PO NOW STA
02/26/25 18:40
Admit/Transfer Patient As Directed
Co-Sign Provider:
Level of Care: Inpatient admission
Assign to:: Telemetry
Physician / Group: mook butler
Diagnosis: pneumothorax
Reason for Telemetry: Chest Pain syndromes
Date to Stop Telemetry: 02/28/25
Time to Stop Telemetry: 11:00
Reason for Hospitalization: pneumothorax
Expected length of stay greater than two midnights?: Yes
ELOS- Estimated Length of Stay in days: 3
I certify the patient meets the requirements for IP care: Yes
PRN Pain Medication Management As Directed
May give lesser potent ordered pain med per pt: Yes
preference::
Protocol:: Medication orders for pain may be administered in a
manner that supports deferring to patient preference
when the pt is:
- Requesting an ordered lesser potent pain medication.
Least to most potent pain medications are defined
as: acetaminophen < NSAID < tramadol < opioids
(morphine, oxycodone, hydromorphone).
- Requesting a lesser dose of the same medication IF
ORDERED.
- Requesting a less intrusive route of administration
if both routes are prescribed by the provider (PO <
IV).
02/26/25 18:41
Code Status As Directed
Resuscitation Status: Full Code
02/28/25 11:00
DC Protocol for Telemetry ONCE
Abnormal Lab Results
02/26/25
17:16
MCHC 32.9 L g/dL
(33.0-37.0)
Abs Immat Gran (auto) 0.2 H 10^3/uL
(0-0.05)
Absolute Neuts (auto) 6.8 H 10^3/uL
(1.4-6.5)
Absolute Monos (auto) 0.8 H 10^3/uL
(0.1-0.6)
Immature Gran % 1.4 H %
(0-0.5)
Glucose 103 H mg/dl
(70-99)
02/26/25 17:16
02/26/25 17:16
Vital Signs
Initial and Last Documented VS:
Initial Vital Signs
Temp Pulse Resp BP Pulse Ox
97.9 F 73 18 165/80 94
02/26/25 16:09 02/26/25 16:09 02/26/25 16:09 02/26/25 16:09 02/26/25 16:09
Last Documented Vital Signs
Temp Pulse Resp BP Pulse Ox
97.9 F 73 18 151/93 93
02/26/25 16:09 02/26/25 18:00 02/26/25 18:00 02/26/25 16:35 02/26/25 18:34
<Juliano Cali, DO - Last Filed: 02/26/25 17:43>
Orders/Labs/Results
Orders:
Orders
02/26/25 16:41
0.9% Sodium Chloride 1000 ml [Nss] 1,000 ml IV BOLUS
Metoclopramide [Reglan] 10 mg IV NOW STA
02/26/25 17:16
Complete Blood Count/With Diff Urgent
Comprehensive Metabolic Panel Urgent
02/26/25 18:33
Ibuprofen [Motrin] 600 mg PO NOW STA
02/26/25 18:40
Admit/Transfer Patient As Directed
Co-Sign Provider:
Level of Care: Inpatient admission
Assign to:: Telemetry
Physician / Group: mook butler
Diagnosis: pneumothorax
Reason for Telemetry: Chest Pain syndromes
Date to Stop Telemetry: 02/28/25
Time to Stop Telemetry: 11:00
Reason for Hospitalization: pneumothorax
Expected length of stay greater than two midnights?: Yes
ELOS- Estimated Length of Stay in days: 3
I certify the patient meets the requirements for IP care: Yes
PRN Pain Medication Management As Directed
May give lesser potent ordered pain med per pt: Yes
preference::
Protocol:: Medication orders for pain may be administered in a
manner that supports deferring to patient preference
when the pt is:
- Requesting an ordered lesser potent pain medication.
Least to most potent pain medications are defined
as: acetaminophen < NSAID < tramadol < opioids
(morphine, oxycodone, hydromorphone).
- Requesting a lesser dose of the same medication IF
ORDERED.
- Requesting a less intrusive route of administration
if both routes are prescribed by the provider (PO <
IV).
02/26/25 18:41
Code Status As Directed
Resuscitation Status: Full Code
02/28/25 11:00
DC Protocol for Telemetry ONCE
Abnormal Lab Results
02/26/25
17:16
MCHC 32.9 L g/dL
(33.0-37.0)
Abs Immat Gran (auto) 0.2 H 10^3/uL
(0-0.05)
Absolute Neuts (auto) 6.8 H 10^3/uL
(1.4-6.5)
Absolute Monos (auto) 0.8 H 10^3/uL
(0.1-0.6)
Immature Gran % 1.4 H %
(0-0.5)
Glucose 103 H mg/dl
(70-99)
02/26/25 17:16
02/26/25 17:16
Vital Signs
Initial and Last Documented VS:
Initial Vital Signs
Temp Pulse Resp BP Pulse Ox
97.9 F 73 18 165/80 94
02/26/25 16:09 02/26/25 16:09 02/26/25 16:09 02/26/25 16:09 02/26/25 16:09
Last Documented Vital Signs
Temp Pulse Resp BP Pulse Ox
97.9 F 73 18 151/93 93
02/26/25 16:09 02/26/25 18:00 02/26/25 18:00 02/26/25 16:35 02/26/25 18:34
<Felipe Truong PA-C - Last Filed: 02/26/25 19:01>
MDM/Problems Addressed
MDM/Problems Addressed:
Case reviewed with interventional radiology and pulmonology, may need chest tube however too small at this time to place, will admit for observation and supplemental oxygen and reassessment in the morning
<Felipe Truong PA-C - Last Filed: 02/26/25 19:01>
*Pulse Oximetry
SaO2: 94
Oxygen Mode of Delivery: Room air
Patient hypoxic: no
*Critical Care Note
Total Time (30-74mins, 75-104mins- exclusive of procedures): Not Applicable
ED Attending Note
<Felipe Truong PA-C - Last Filed: 02/26/25 19:01>
-
Portions of this chart may have been created with voice recognition software.� Occasional wrong word or��sound alike� substitutions may have occurred due to the inherent limitations of voice recognition software.
<Juliano Cali DO - Last Filed: 02/26/25 17:43>
ED Attending Note
Patient seen and examined by attending physician: Yes
I performed the substantive portion of visit, reviewed & personally made and approve the management plan that is documented in note by myself or JOHN.: Yes
ED Attending Note:
The patient has a worsening chest x-ray regarding pneumothorax. We gave supplemental oxygen for comfort which may help to treat the pneumothorax more conservatively. IR and pulmonary were notified tonight. I evaluated the patient at bedside.
Discharge Plan
Departure
Patient Disposition: Admit
Date of Disposition: 02/26/25
Time of Disposition: 17:49
Admit to: Med/Surg
Presentation/result/management discussed w/ accepting MD/DO: Hospitalist
Discharge Problem:
Pneumothorax
Prescriptions:
No Action
gabapentin 300 MG capsule
300 mg PO TID
estradiol 0.5 MG tablet
0.5 mg PO DAILY
famotidine 40 mg Tablet
40 mg PO DAILY
levothyroxine 125 mcg Tablet
125 mcg PO DAILY
rosuvastatin 5 mg Tablet
5 mg PO DAILY
dereje-phsal-hyo 118-10-40.8-36 mg Capsule
1 tab PO QID PRN (Reason: cystic bladder)
valacyclovir [Valtrex] 1 gram Tablet
1,000 mg PO DAILY
losartan 25 mg Tablet
25 mg PO DAILY
fluticasone furoate-vilanterol [Breo Ellipta] 200-25 mcg/dose Blister With Device
1 inh INHALATION Q24H
Cimzia 200 mg/mL Syringe Kit
200 mg SC Q2W
Patient Comments:
each arm Q 2 weeks
methotrexate sodium 2.5 mg tablet
20 mg PO TU
Patient Comments:
8 tabs one day /week
Cortrophin Gel
1 dose SC DAILY PRN (Reason: psoriatic arthritis)
cyanocobalamin (vitamin B-12) 50 mcg Tablet
50 mcg PO DAILY
cholecalciferol (vitamin D3) [Vitamin D3] 50 mcg (2,000 unit) Tablet
50 mcg PO DAILY
magnesium
1 dose PO DAILY
Referrals:
Larry Rothman Jr., DO [Family Provider, Internal Medicine]
Interventions
Interventions:
*Risk Screen - Suicide Last Done: 02/26/25 16:09
*General Assessment Last Done: 02/26/25 16:09
*Neglect/Abuse Screening Last Done: 02/26/25 16:09
*ED- Fall Risk Assessment Last Done: 02/26/25 17:05
*ED COVID-19 Vaccine History Last Done: 02/26/25 16:09
*ED Influenza Vaccine History Last Done: 02/26/25 16:09
ED- Cardiac Assessment Last Done: 02/26/25 16:45
ED- Pulmonary Assessment Last Done: 02/26/25 17:48
Discharge Date and Time
Print Language: JAPANESE
[2025-02-26 17:05] VITALS: BMI 27.8
[2025-02-26] MEDS: NSS 1000 IV (17:11)
[2025-02-26] MEDS: REGLAN 10 MG IV (17:11)
[2025-02-26 17:28] LABS: Hematocrit 43.5 % (37.0-47.0); Hemoglobin 14.3 g/dL (12.0-16.0); Mean Corp Hgb Conc. 32.9 g/dL (33.0-37.0); Mean Corpuscular Volume 91.0 fL (81.0-99.0); Nucleated Red Blood Cells % 0 %; Platelet Count 306 10^3/uL (130-400); Red Cell Dist. Width 14.0 % (11.5-14.5)
[2025-02-26 17:39] LABS: ALT (SGPT) 27 U/L (0-35); AST (SGOT) 22 U/L (14-36); Albumin 4.7 g/dl (3.5-5.0); Alkaline Phosphatase 96 U/L (38-126); Blood Urea Nitrogen 12 mg/dl (7-17); Calcium 9.5 mg/dl (8.4-10.2); Carbon Dioxide 26 mmol/L (22-30); Chloride 106 mmol/L (98-107); Estimated Creatinine Clearance 101 ml/min; Glucose 103 mg/dl (70-99); Potassium 4.2 mmol/L (3.5-5.1); Sodium 138 mmol/L (135-145); Total Protein 7.5 g/dl (6.3-8.2); eGFR > 60.00
--- NOTE | 2025-02-26 18:21 | HPS.HSE ---
Family Physician
-
Family Physician: Larry Rothman Jr.
Chief Complaint
-
right sided chest pain, sob
NICHOLS and vomitting
History of Present Illness
64-year-old female with past medical history for psoriatic arthritis, hypertension, hypothyroidism, GERD, hyperlipidemia, COPD, pulmonary nodule for which she got bronch yesterday presented to us with pneumothorax. she felt right sided chest rajput and
sob as soon as she got Bronch yesterday. the sob and chest pain progressively getting worse. Small pneumothorax was identified postprocedural films today repeat x-ray today showed increased size. She also reports waking up today with headache
and vomiting multiple times. denied fever, chills, cough, congestion. denied NICHOLS, dizzy or syncope. denied abdominal pain, diarrhea, constipation. denied dysuria or hematuria.
admitting for further management.
Medical History
Past Medical History
Past Medical History: Reports Other
Additional Past Medical History:
Hypertension, coronary artery disease, aortic aneurysm, hypothyroidism, thyroid nodules, asthma, COPD, sleep apnea, vitamin disease, arthritis, osteoporosis, cervical algia, low back pain, GERD
Past Surgical History: Reports Other
Additional Past Surgical History:
Ectomy, cervical spine surgery, hysterectomy/oophorectomy, cholecystectomy, upper GI replaced, dental implants,
Social History
Tobacco: Former Smoker
Alcohol: Occasional
Family History
Family History: Not pertinent
Allergies / Home Medications
Allergies reflects when Allergies were last updated in [facility].
Home Medications with original date entered in [facility]
Allergy/Medication List:
Allergies
Allergy/AdvReac Type Severity Reaction Status Date / Time
cortisone Allergy Unknown Itching, Verified 02/26/25 16:18
swelling
iodine Allergy Itching Verified 02/26/25 16:18
morphine (Morphine) Allergy itching, Verified 02/26/25 16:18
swelling,
difficulty
breathing,
nausea
oxycodone HCl (From Percocet) Allergy Pharmacy Verified 02/26/25 16:18
to Review
Penicillins Allergy itching, Verified 02/26/25 16:18
swelling,
difficulty
breathing,
nausea
secukinumab (From Cosentyx) Allergy Swelling Verified 02/26/25 16:18
shellfish derived Allergy itching, Verified 02/26/25 16:18
swelling,
difficulty
breathing,
nausea
Home Medications
fexofenadine 30 mg tablet (Abbie) 180 mg PO DAILY 02/09/10
estradiol 0.5 mg tablet 0.5 mg PO DAILY 09/06/18
gabapentin 300 mg capsule 300 mg PO HS 09/06/18
famotidine 40 mg tablet 40 mg PO DAILY 10/24/24
folic acid 1 mg tablet 3 mg PO DAILY 10/24/24
levothyroxine 125 mcg tablet 125 mcg PO DAILY 10/24/24
methenam 118 mg-m.blue 10 mg-s.phos 40.8 mg-p.salic 36 mg-hyos capsule 1 tab PO QID PRN cystic bladder 10/24/24
nabumetone 750 mg tablet 750 mg PO BID 10/24/24
rosuvastatin 5 mg tablet 5 mg PO DAILY 10/24/24
Cortrophin Gel 1 dose SC DAILY PRN psoriatic arthritis 02/21/25
Fish Oil 1 dose PO DAILY 02/21/25
Pre Pro Biotic 1 dose PO DAILY 02/21/25
Vitamin B-2 1 dose PO DAILY 02/21/25
albuterol sulfate 90 mcg/actuation aerosol inhaler 1 puff inhalation DAILY PRN sob 02/21/25
ascorbic acid (vitamin C) 500 mg tablet (Vitamin C) 500 mg PO DAILY 02/21/25
certolizumab pegol 200 mg/mL subcutaneous syringe kit (Cimzia) 200 mg SC Q2W 02/21/25
cholecalciferol (vitamin D3) 50 mcg (2,000 unit) tablet (Vitamin D3) 50 mcg PO DAILY 02/21/25
cyanocobalamin (vitamin B-12) 50 mcg tablet 50 mcg PO DAILY 02/21/25
fluticasone furoate 200 mcg-vilanterol 25 mcg/dose inhalation powder (Breo Ellipta) 1 inh inhalation Q24H 02/21/25
losartan 25 mg tablet 25 mg PO DAILY 02/21/25
magnesium 1 dose PO DAILY 02/21/25
methotrexate sodium 2.5 mg tablet 20 mg PO TU 02/21/25
valacyclovir 1 gram tablet (Valtrex) 1,000 mg PO DAILY 02/21/25
vitamin E 1 dose PO DAILY 02/21/25
vitamin K 1 dose PO DAILY 02/21/25
Review of Systems
-
Constitutional: Reports No Symptoms
EENT: Reports No Symptoms
Respiratory: Reports Trouble Breathing
Cardiac: Reports Chest Pain
Abdomen/GI: Reports No Symptoms
: Reports No Symptoms
Musculoskeletal: Reports No Symptoms
Skin: Reports No Symptoms
Neurological: Reports No Symptoms
Endocrine: Reports No Symptoms
Hematologic/Lymphatic: Reports No Symptoms
Psych: Reports No Symptoms
Physical Exam
Vital Signs
Vital Signs
Temp Pulse Resp BP Pulse Ox
97.9 F 70 21 151/93 97
02/26/25 16:09 02/26/25 17:15 02/26/25 17:15 02/26/25 16:35 02/26/25 17:48
Physical Exam
General: Well Developed, Well Nourished and No Apparent Distress
HEENT: NormoCephalic, Moist mucous membranes and Atraumatic
Respiratory: Decreased Breath Sounds
Cardiac: S1/S2 and Regular Rhythm; No Murmur or Rub
GI: Soft, Non Tender, Non Distended and Normal Bowel Sounds; No Organomegaly
Rectal: Deferred by Provider
Musculoskeletal: No Clubbing, No Cyanosis and No Edema
Skin: No Rash
Neuro: AO x 3 and Nonfocal/grossly intact
Psych: Calm
Laboratory Results
-
02/26/25 17:16
02/26/25 17:16
Laboratory Results
Total Bilirubin 0.5 mg/dl (0.2-1.3) 02/26/25 17:16
AST 22 U/L (14-36) 02/26/25 17:16
ALT 27 U/L (0-35) 02/26/25 17:16
Alkaline Phosphatase 96 U/L (38-126) 02/26/25 17:16
Data Reviewed
-
Lab Data: Labs Reviewed by me
Impression/Plan
-
# Right pneumothorax status post bronchoscopy
- Pulmonology, interventional radiology consulted
-supplemental oxygen
-Tylenol prn for pain
-repeat chest x ray in am
-chest x ray after procedure yesterday with findings suggesting tiny right apical pneumothorax.
-chest x ray today with Small right-sided pneumothorax has increased since most recent radiograph from yesterday. There is a small component of pleural fluid inferiorly compatible with a small component of hydropneumothorax
#GERD: cont PPI
#Hypothyroidism: cont Levoxyl
#Essential hypertension: Losartan continued
#Hyperlipidemia: cont statin
#Psoriatic arthritis: cont Relafen/gabapentin. Home MTX on hold, on Cimzia outpt.
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
#DVT prophylaxis
-scd
#CODE status
-full code
--- NOTE | 2025-02-26 18:25 | W.PN.UPDATE ---
Update Note
Progress Note Update
This note serves as an addendum to the H&P by nutrition services associate JOHN�
Syeda NIKITA�
HPI�
64F HX HTN, Hypothyroid, HLD Asthma, COPD, GERD, LBP, Mitral and aortic prolapse, Psoriatic arthritis seen at ER
- 02/25/25 S/P selective bronchoscopy and TBNA complicated small apical PTX
- 02/26/25 f/u repeat CXR showed increased size of PTX.
- reports right-sided chest pain and dyspnea.
- reports waking up today with headache and vomiting, prior history of migraines that were under control for a long time.
ROS
Denies any hemoptysis. Does not take blood thinners
PHX; se above
Reviewed VS:
Temp Pulse Resp BP Pulse Ox
97.9 F 73 18 151/93 93
02/26/25 16:09 02/26/25 18:00 02/26/25 18:00 02/26/25 16:35 02/26/25 18:34
PE
Gen: NAD
Eyes: no scleral icterus.
Neck: supple.
CV: RRR, +S1/S2, no m/r/g.
Resp: rCTAB, no rales, wheezes, or rhonchi.
Abd: +BS, soft, NT, ND
Skin: No rashes.
Neuro: CN 2-12 intact, non-focal.
Psych: Normal mood and affect.
Relevant Data�
02/26/25
17:16
MCHC 32.9 L
Abs Immat Gran (auto) 0.2 H
Absolute Neuts (auto) 6.8 H
Absolute Monos (auto) 0.8 H
Immature Gran % 1.4 H
Glucose 103 H
02/26/25 CXR at 1450 hours
- Small right-sided pneumothorax has increased since most recent radiograph from yesterday.
- There is a small component of pleural fluid inferiorly compatible with a small component of hydropneumothorax.
02/25/25 1405 pm
- tiny right apical pneumothorax.
02/25/25 : bronchoscopy of right upper lobe performed with fluoroscopic assistance.
Impression:
- Right middle lobe nodule
- Atelectasis of the right middle lobe
- Right upper lobe nodule
- Adenopathy
- The airway examination was normal EXCEPT FOR SECRETIONS.
- Robotic bronchoscopy utilizing the Ion robot platform was performed TO RML.
- Brushings were obtained RML.
- Bronchoalveolar lavage was performed RML.
- Robotic bronchoscopy utilizing the Ion robot platform was performed TO RUL.
- Brushings were obtained RUL.
- Bronchoalveolar lavage was performed RUL.
- A transbronchial needle aspiration was performed STATION 11R.
Recommendation: Await BAL, brushing, culture and cytology results.
Last hospitalist admission: Date of Admission: 10/24/24 -Date of Discharge: 10/28/24
DC DX: Sepsis due to acute Legionella pneumonia
ASSESSMENT & PLAN
Pending Rx reconciliation
Interval increased in size of small R PTX s/p targeted bronchoscopy
- serial CXR - in AM and worsening SoB or desaturation or unstable HD state
- PRN Narcotic analgesia
- O2 supplement PRN
- Supportive care
- Pul consult
- IR consult
Other problems:
GERD: cont PPI
Hypothyroidism: cont Levoxyl
Essential hypertension: on Losartan
Hyperlipidemia: cont statin
Psoriatic arthritis: cont Relafen/gabapentin. Home MTX on hold, on Cimzia outpt.
DVT Px: LMWH
Full code
IP TLM
[2025-02-26] MEDS: MOTRIN 600 MG PO (19:26)
[2025-02-26 20:28] VITALS: BP 163/83
--- NOTE | 2025-02-26 21:00 | PTCARENOTE ---
Rec'd patient from ER. AAOx3. No complaints at this time. SR in 60s. c/o 11/06 pain right sed lower chest. POC reviewed with patient.
[2025-02-26] MEDS: TYLENOL 650 MG PO (21:02)
[2025-02-26] MEDS: NEURONTIN 300 MG PO (21:02)
[2025-02-26] MEDS: SENOKOT-S 1 TABLET PO (21:03)
[2025-02-26 23:20] VITALS: BP 143/76
[2025-02-27] VITALS (10 sets, daily range): BP systolic 67–163; BP diastolic 59–81
[2025-02-27] MEDS: TYLENOL 650 MG PO ×2 (03:31→15:48)
[2025-02-27] MEDS: SYNTHROID 125 MCG PO (05:16)
[2025-02-27] MEDS: ZOFRAN 4 MG IV (05:42)
[2025-02-27] MEDS: SYMBICORT 160/4.5 MCG INHALER 2 PUFF INH ×2 (08:01→19:16)
[2025-02-27] MEDS: REGLAN 10 MG IV ×3 (08:17→21:25)
[2025-02-27 09:08] LABS: Hematocrit 40.9 % (37.0-47.0); Hemoglobin 13.5 g/dL (12.0-16.0); Mean Corp Hgb Conc. 33.0 g/dL (33.0-37.0); Mean Corpuscular Volume 91.3 fL (81.0-99.0); Platelet Count 263 10^3/uL (130-400); Red Cell Dist. Width 14.2 % (11.5-14.5)
[2025-02-27 09:49] LABS: Blood Urea Nitrogen 11 mg/dl (7-17); Calcium 8.8 mg/dl (8.4-10.2); Carbon Dioxide 25 mmol/L (22-30); Chloride 108 mmol/L (98-107); Estimated Creatinine Clearance 101 ml/min; Glucose 119 mg/dl (70-99); Potassium 4.1 mmol/L (3.5-5.1); Sodium 138 mmol/L (135-145); eGFR > 60.00
--- NOTE | 2025-02-27 09:58 | CON.PUL ---
Consultation
Consultation Request
Date/Time Consultation Requested: 02/27/2025
Date/Time Consultation Performed: 02/28/2024
Requesting Provider:
Performing Provider: Dr. Doug Middleton
Reason for Consultation: Right iatrogenic pneumothorax
Medical History
-
History of Present Illness:
64-year-old woman with past medical history significant for psoriatic arthritis, hypertension, hypothyroidism, GERD, hyperlipidemia, COPD/emphysema, pulmonary nodule for which patient underwent bronchoscopy with robotic guidance on 02/25/2025 by
[facility]. Patient came to the emergency room complaining of right-sided chest pain that was progressive. Chest x-ray shows small pneumothorax that was enlarging. She was admitted for observation. Dr. Middleton discussed the case with interventional
radiology yesterday, pneumothorax too small for safely place a chest tube.
Patient denies shortness of breath
Remained hemodynamically stable.
-
Patient reports that the night after the procedure she developed headache nausea and vomiting.
She had the chest pain preceding the nausea and the vomiting.
Past Medical History
Past Medical History: Other (See assessment and plan)
Social History
Tobacco: Former Smoker
Alcohol: Occasional
Drug: None
Family History
Family History: Reviewed & Not Pertinent
Allergies / Home Medications
Allergies
Allergy/AdvReac Type Severity Reaction Status Date / Time
cortisone Allergy Unknown Itching, Verified 02/26/25 16:18
swelling
iodine Allergy Itching Verified 02/26/25 16:18
morphine (Morphine) Allergy itching, Verified 02/26/25 16:18
swelling,
difficulty
breathing,
nausea
oxycodone HCl (From Percocet) Allergy Pharmacy Verified 02/26/25 16:18
to Review
Penicillins Allergy itching, Verified 02/26/25 16:18
swelling,
difficulty
breathing,
nausea
secukinumab (From Cosentyx) Allergy Swelling Verified 02/26/25 16:18
shellfish derived Allergy itching, Verified 02/26/25 16:18
swelling,
difficulty
breathing,
nausea
Home Medications
�Medication �Instructions �Recorded �Confirmed �Last Taken �Type
estradiol 0.5 mg tablet 0.5 mg PO DAILY Hormonal Agent 09/06/18 02/26/25 02/25/25 07:00 History
gabapentin 300 mg capsule 300 mg PO TID Neurological 09/06/18 02/26/25 02/24/25 22:00 History
Condition
famotidine 40 mg tablet 40 mg PO DAILY Gastrointestinal 10/24/24 02/26/25 02/23/25 History
Issue
levothyroxine 125 mcg tablet 125 mcg PO DAILY Thyroid 10/24/24 02/26/25 02/25/25 05:00 History
methenam 118 mg-m.blue 10 1 tab PO QID PRN cystic bladder 10/24/24 02/26/25 Unknown History
mg-s.phos 40.8 mg-p.salic 36
mg-hyos capsule
rosuvastatin 5 mg tablet 5 mg PO DAILY High Cholesterol 10/24/24 02/26/25 02/25/25 07:00 History
Cortrophin Gel 1 dose SC DAILY PRN psoriatic 02/21/25 02/25/25 Unknown History
arthritis
certolizumab pegol 200 mg/mL 200 mg SC Q2W Autoimmune Disorder 02/21/25 02/26/25 01/31/25 History
subcutaneous syringe kit (Cimzia)
cholecalciferol (vitamin D3) 50 50 mcg PO DAILY Supplement 02/21/25 02/26/25 02/23/25 History
mcg (2,000 unit) tablet (Vitamin
D3)
cyanocobalamin (vitamin B-12) 50 50 mcg PO DAILY Supplement 02/21/25 02/26/25 02/22/25 History
mcg tablet
fluticasone furoate 200 1 inh inhalation Q24H 02/21/25 02/26/25 02/25/25 09:00 History
mcg-vilanterol 25 mcg/dose Lung/Breathing Issues
inhalation powder (Breo Ellipta)
losartan 25 mg tablet 25 mg PO DAILY Blood Pressure 02/21/25 02/26/25 02/24/25 08:00 History
magnesium 1 dose PO DAILY Supplement 02/21/25 02/25/25 02/22/25 History
methotrexate sodium 2.5 mg tablet 20 mg PO TU Autoimmune Disorder 02/21/25 02/26/25 02/19/25 History
valacyclovir 1 gram tablet 1,000 mg PO DAILY Infection 02/21/25 02/26/25 02/23/25 History
(Valtrex)
Review of Systems
-
History Source: Patient
All other systems: Negative unless noted
Vitals / Labs / Diagnostic Testing
Vital Signs
Temp Pulse Resp BP Pulse Ox
98.2 F 65 18 136/78 95
02/27/25 07:00 02/27/25 08:04 02/27/25 08:04 02/27/25 07:00 02/27/25 08:04
Lab Data
02/27/25 08:56
02/27/25 08:56
Diagnostic Testing:
Physical Exam
-
HEENT: Normocephalic
Cardiovascular: S1/S2
Respiratory: Clear, Non-Labored Respirations and Other (No subcutaneous air noted)
GI: Soft and Non Distended
Neurology: Awake, Alert, AO x 3 and No Motor Deficits
Skin: Warm
General: Comfortable
Assessment
-
64-year-old woman who underwent bronchoscopy with transbronchial biopsy on 02/25/2025. Developed chest pain postprocedure. Small pneumothorax detected send at home as it was tiny and stable. Came back with chest pain that was worsening. She also
developed some headache nausea vomiting the night postprocedure. Chest x-ray demonstrated enlarging right apical pneumothorax. We were consulted for management.
Right iatrogenic pneumothorax-post bronchoscopy 02/25/2025
Headache/nausea vomiting-perhaps from sedation anesthesia
Conditions present prior admission:
COPD/emphysema
Lung nodules
Bronchiectasis
Hypothyroidism
Aortic aneurysm
Coronary artery disease
Hypertension
Obstructive sleep apnea
Arthritis
Osteoporosis
Cervical arthritis
Low back pain
GERD
Assessment and plan:
Iatrogenic right sided pneumothorax-is slowly enlarging based on chest x-ray from 02/27/2025 reviewed.
Patient on 2 L supplemental oxygen
Clear lung exam
Complaining of some slight chest discomfort.
Discussed with interventional radiology, given enlarging pneumothorax and underlying emphysema will place small bore chest tube.
Consult has been placed. Daily chest x-ray
Will monitor for airleak
-
COPD-no acute exacerbation.
Continue inhalers
-
Lung nodule: Status post bronchoscopy with robotic guidance 02/25/2025.
Right middle lobe brush atypical cells
Right middle lobe BAL atypical cells right upper lobe brush negative for malignant cells
Right upper lobe BAL negative for malignant cells
Station 11R needle aspiration satisfactory evaluation-negative for malignant cells
-
Pulmonary will continue to follow.
[2025-02-27] MEDS: ESTRACE 0.5 MG PO (10:15)
[2025-02-27] MEDS: COZAAR 25 MG PO (10:15)
[2025-02-27] MEDS: CRESTOR 5 MG PO (10:15)
[2025-02-27] MEDS: PEPCID 40 MG PO (10:15)
[2025-02-27] MEDS: NEURONTIN 300 MG PO ×3 (10:15→21:19)
[2025-02-27] MEDS: VALTREX 1000 MG PO (10:15)
[2025-02-27] MEDS: MOTRIN 400 MG PO (10:17)
--- NOTE | 2025-02-27 10:44 | CM ---
CM following re: discharge planning.
Reviewed pt's chart, met with pt.
Pt is a 64 year old female, admitted with primary dx of Right iatrogenic pneumothorax-post bronchoscopy 02/25/2025. PMH: psoriatic arthritis, hypertension, hypothyroidism, GERD, hyperlipidemia, COPD/emphysema, pulmonary nodule.
Pt reports she lives alone in a 2SH, 2 steps to enter, has supportive son Omega. Pt described herself as independent in all areas [employer], has a walker and a cane and does not use them. Pt stated she has C-pap machine. Pt reports she had [facility] in
the past and will prefer [facility] if recommended.
PCP: Larry Rothman
Pharmacy: [facility]
D/C plan: home with anticipated no needs vs VN if indicated.
CM will follow with discharge plan updates as hospitalization progresses
--- NOTE | 2025-02-27 11:16 | PTCARENOTE ---
Patient to IR for chest tube placement.
--- NOTE | 2025-02-27 11:20 | W.PN.HOSP.TC ---
Today's Communication/Plan
-
Monitor vital signs
See plan
Chest tube today
Discussed with IR and pulmonary
Reglan for nausea
Assessment / Plan
Assessment / Plan
General: Well Developed, Well Nourished and No Apparent Distress
HEENT: NormoCephalic, Moist mucous membranes and Atraumatic
Respiratory: Decreased Breath Sounds
Cardiac: S1/S2 and Regular Rhythm; No Murmur or Rub
GI: Soft, Non Tender, Non Distended and Normal Bowel Sounds
Musculoskeletal:Edema
Neuro: AO x 3 and Nonfocal/grossly intact
Psych: Calm
Right pneumothorax status post bronchoscopy
-supplemental oxygen, Wean oxygen as tolerated
-Tylenol prn for pain
Discussed with pulmonary and IR, chest tube today
Chest x-ray with pneumo
-chest x ray today with Small right-sided pneumothorax has increased since most recent radiograph from yesterday. There is a small component of pleural fluid inferiorly compatible with a small component of hydropneumothorax
Nausea, could be secondary to anesthesia she got yesterday
Reglan as needed
Monitor
Headache
History of migraine
Monitor
#GERD: cont PPI
#Hypothyroidism: cont Levoxyl
#Essential hypertension: Losartan continued
#Hyperlipidemia: cont statin
#Psoriatic arthritis: cont Relafen/gabapentin. Home MTX on hold, on Cimzia outpt.
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
#DVT prophylaxis
-scd
#CODE status
-full code
Anticipated Discharge: 24 - 48 hours
Subjective/Interval History
-
Date of Service: February 27, 2025
Complaining of some nausea
Objective Data
-
Labs:
Laboratory Results
02/27/25
08:56
WBC 9.9
Hgb 13.5
Hct 40.9
Plt Count 263
Sodium 138
Potassium 4.1
Chloride 108 H
Carbon Dioxide 25
BUN 11
Creatinine 0.6
Glucose 119 H
Calcium 8.8
Vital Signs:
Vital Signs
Temp Pulse Resp BP Pulse Ox
98.2 F 68 18 136/78 95
02/27/25 07:00 02/27/25 10:15 02/27/25 08:04 02/27/25 10:15 02/27/25 10:23
I&O
02/26/25 02/27/25 02/28/25
06:59 06:59 06:59
Intake Total 600 / 600
Balance 600 / 600
--- NOTE | 2025-02-27 13:39 | PTCARENOTE ---
Addendum entered by Mallory Gallegos RN 02/27/25 14:25:
Patient medicated with PRN 0.5mg IV Dilaudid and 10 mg IV Reglan for pain and nausea - see JUL. Bubbling present in air leak chamber. Pulmonology made aware, no new orders at this time.
Patient tolerating regular diet, states improvement in nausea and pain after medication administration. On bedrest until 1530 per order. VSS.
Original Note:
Received patient from IR s/p R chest tube placement. Dressing C/D/I, R chest tube with no output at this time, +tidaling, set to suction per order. VSS, regular diet restarted.
[2025-02-27] MEDS: DILAUDID 0.5 MG IV ×3 (13:59→21:10)
[2025-02-27] MEDS: DILAUDID 0.25 MG IV ×2 (15:43→18:47)
[2025-02-27] MEDS: LOVENOX 40 MG SC (17:19)
[2025-02-27] MEDS: REGLAN 5 MG IV (19:37)
[2025-02-27] MEDS: OFIRMEV 100 IV (21:11)
[2025-02-28] MEDS: DILAUDID 0.5 MG IV ×3 (02:55→10:51)
[2025-02-28 03:04] VITALS: BP 132/65
[2025-02-28] MEDS: OFIRMEV 100 IV (05:22)
[2025-02-28] MEDS: SYNTHROID 125 MCG PO (05:24)
[2025-02-28 06:01] VITALS: BMI 27.4
[2025-02-28 06:56] LABS: Hematocrit 40.0 % (37.0-47.0); Hemoglobin 12.7 g/dL (12.0-16.0); Mean Corp Hgb Conc. 31.8 g/dL (33.0-37.0); Mean Corpuscular Volume 93.9 fL (81.0-99.0); Nucleated Red Blood Cells % 0 %; Platelet Count 282 10^3/uL (130-400); Red Cell Dist. Width 14.2 % (11.5-14.5)
[2025-02-28 07:14] LABS: Blood Urea Nitrogen 11 mg/dl (7-17); Calcium 8.9 mg/dl (8.4-10.2); Carbon Dioxide 28 mmol/L (22-30); Chloride 104 mmol/L (98-107); Estimated Creatinine Clearance 101 ml/min; Glucose 103 mg/dl (70-99); Potassium 4.3 mmol/L (3.5-5.1); Sodium 136 mmol/L (135-145); eGFR > 60.00
[2025-02-28] MEDS: SYMBICORT 160/4.5 MCG INHALER 2 PUFF INH (07:18)
[2025-02-28 07:30] VITALS: BP 136/57
[2025-02-28] MEDS: NEURONTIN 300 MG PO (07:48)
[2025-02-28] MEDS: CRESTOR 5 MG PO (07:48)
[2025-02-28] MEDS: VALTREX 1000 MG PO (07:49)
[2025-02-28] MEDS: COZAAR 25 MG PO (07:49)
[2025-02-28] MEDS: PEPCID 40 MG PO (07:50)
[2025-02-28] MEDS: ESTRACE 0.5 MG PO (07:50)
[2025-02-28] MEDS: REGLAN 10 MG IV (07:51)
--- NOTE | 2025-02-28 10:09 | W.PN.PUL3 ---
Today's Communication / Plan
-
Will discontinue chest tube today-IR order has been placed
Discharge planning
Follow-up in pulmonary office with Dr. Mccarty in two weeks.
Assessment
-
64-year-old woman who underwent bronchoscopy with transbronchial biopsy on 02/25/2025. Developed chest pain postprocedure. Small pneumothorax detected send at home as it was tiny and stable. Came back with chest pain that was worsening. She also
developed some headache nausea vomiting the night postprocedure. Chest x-ray demonstrated enlarging right apical pneumothorax. We were consulted for management.
Right iatrogenic pneumothorax-post bronchoscopy 02/25/2025
Headache/nausea vomiting-perhaps from sedation anesthesia
Conditions present prior admission:
COPD/emphysema
Lung nodules
Bronchiectasis
Hypothyroidism
Aortic aneurysm
Coronary artery disease
Hypertension
Obstructive sleep apnea
Arthritis
Osteoporosis
Cervical arthritis
Low back pain
GERD
Assessment and plan:
Iatrogenic right sided pneumothorax-is slowly enlarging based on chest x-ray from 02/27/2025 reviewed.
Status post chest tube placement 02/27/2025: Repeat chest x-ray 02/28/2025 at 6 AM without pneumothorax.
lead network architect chest tube was clamped: Repeat chest x-ray 3 hours later showed no evidence for recurrent pneumothorax.
Upon opening the chest tube from clamp: I do not appreciate any air leakage.
-
Will discontinue chest tube later today. Order placed for interventional radiology to discontinue. Case discussed via [employer] text as well.
-
Patient on 2 L supplemental oxygen
Clear lung exam
-
COPD-no acute exacerbation.
Continue inhalers without change
-
Discussed with patient biopsy results negative.
Cultures from bronchoscopy still pending. Bacterial no growth so far.
Lung nodule: Status post bronchoscopy with robotic guidance 02/25/2025.
Right middle lobe brush atypical cells
Right middle lobe BAL atypical cells right upper lobe brush negative for malignant cells
Right upper lobe BAL negative for malignant cells
Station 11R needle aspiration satisfactory evaluation-negative for malignant cells
-
Hopefully can discharge later today.
Close follow-up in the pulmonary office in about 2 weeks.
Subjective Data
-
Date of Service:
Date of Service: February 28, 2025
Chief Complaint: Pulmonary Follow Up (Right-sided pneumothorax)
Subjective:
Reports pain on the chest tube site entry
Denies increased cough or hemoptysis
Review of Systems
Cardiopulmonary: Dyspnea (None) and Dyspnea on Exertion (Improved)
GI: Abdominal Pain (n)
Objective Data
Data Reviewed
Vital Signs / I&O / Oxygen:
Vital Signs
Temp Pulse Resp BP Pulse Ox
97.9 F 56 18 136/57 96
02/28/25 07:30 02/28/25 07:49 02/28/25 07:30 02/28/25 07:49 02/28/25 07:30
Intake and Output
02/27/25 02/28/25 03/01/25
06:59 06:59 06:59
Intake Total 600 / 600 1200 / 1200
Output Total 0 / 0 200 / 200
Balance 600 / 600 1200 / 1200 -200 / -200
SaO2 96
Nasal Cannula flow liters per 2
minute
Physical Exam
General: Comfortable
HEENT: Normocephalic
Cardiovascular: S1-S2
Respiratory: Clear and Non-Labored Respirations
GI: Soft and Non Distended
Neurology: Awake, Oriented, AO x 3 and No Motor Deficits
Skin: Warm
Labs/Micro/Reports
Lab Data
02/28/25 06:08
02/28/25 06:08
[2025-02-28 11:15] VITALS: BP 144/69
--- NOTE | 2025-02-28 11:19 | W.PN.HOSP.TC ---
Addendum entered and electronically signed by Andres Deshpande MD 02/28/25 15:18:
Patient denies any nausea after chest tube removal. Currently she is feeling better. Will discharge patient home
Time of discharge 37 minutes
Original Note:
Today's Communication/Plan
-
Monitor vital signs see plan
Still with intermittent nausea
Continue laxative
Possible chest tube removal today
Will see how patient does with nausea after chest tube removal and if patient is feeling better then like discharge today
Assessment / Plan
Assessment / Plan
General: Well Developed, Well Nourished and No Apparent Distress
HEENT: NormoCephalic, Moist mucous membranes and Atraumatic
Respiratory: Decreased Breath Sounds,+chest tube
Cardiac: S1/S2 and Regular Rhythm; No Murmur or Rub
GI: Soft, Non Tender, Non Distended and Normal Bowel Sounds
Musculoskeletal:Edema
Neuro: AO x 3 and Nonfocal/grossly intact
Psych: Calm
Right pneumothorax status post bronchoscopy
-supplemental oxygen, Wean oxygen as tolerated
-Tylenol prn for pain
pulm and IR following; s/p chest tube 02/27. CXR today shows improvement, Mild atelectasis. Discussed with pulmonary, chest tube removal today
Chest x-ray with pneumo on admission
-chest x ray today with Small right-sided pneumothorax has increased since most recent radiograph from yesterday. There is a small component of pleural fluid inferiorly compatible with a small component of hydropneumothorax
Nausea, could be secondary to anesthesia she got and now could be from pain
will see how patient does after chest tube removal
Reglan as needed
Monitor
Headache
History of migraine
Monitor
#GERD: cont PPI
#Hypothyroidism: cont Levoxyl
#Essential hypertension: Losartan continued
#Hyperlipidemia: cont statin
#Psoriatic arthritis: cont Relafen/gabapentin. Home MTX on hold, on Cimzia outpt.
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
#DVT prophylaxis
-scd
#CODE status
-full code
Anticipated Discharge: Within 24 hours
Subjective/Interval History
-
Date of Service: February 28, 2025
has pain
Objective Data
-
Labs:
Laboratory Results
02/28/25
06:08
WBC 8.4
Hgb 12.7
Hct 40.0
Plt Count 282
Sodium 136
Potassium 4.3
Chloride 104
Carbon Dioxide 28
BUN 11
Creatinine 0.6
Glucose 103 H
Calcium 8.9
Vital Signs:
Vital Signs
Temp Pulse Resp BP Pulse Ox
97.5 F 62 18 144/69 97
02/28/25 11:15 02/28/25 11:15 02/28/25 11:15 02/28/25 11:15 02/28/25 11:15
I&O
02/27/25 02/28/25 03/01/25
06:59 06:59 06:59
Intake Total 600 / 600 1200 / 1200
Output Total 0 / 0 200 / 200
Balance 600 / 600 1200 / 1200 -200 / -200
[2025-02-28] MEDS: DILAUDID 0.25 MG IV (13:18)
--- NOTE | 2025-02-28 13:59 | W.PN.IRAD.PR ---
Procedure Note
-
Pt s/p right chest tube placement secondary to right PTX post bronchoscopy procedure. The chest tube was left to suction overnight and clamped today at 7:30am. Repeat CXR at 9:30am was neg for PTX and no air leak demonstrated. Therefore, the right
chest tube was removed intact and without difficulty. A gauze/Vaseline dressing was placed. Repeat CXR s/p chest tube removal was neg for PTX. Pt advised to keep in place x 2-3 days. She was advised to return to ER immediately with increased SOB or
chest pain. Pt demonstrated understanding.
--- NOTE | 2025-02-28 15:20 | W.DCSUMMARY ---
Discharge Summary
Discharge Data
Date of Admission: 02/26/25
Date of Discharge: 02/28/25
-
Pending Results: Yes
Hospital Course
64-year-old female with past medical history of ocular shingles, psoriatic arthritis, anemia, essential hypertension, hypothyroidism, GERD, migraine, lung nodule came to the hospital with right sided pneumothorax status post bronchoscopy that was
done outpatient. Patient initial chest x-ray was consistent with pneumothorax. Patient was seen by pulmonary and IR and she ended up getting chest tube. Patient symptoms continue to improve and eventually chest tube was removed. In the hospital
she also had nausea which was suspected was secondary to anesthesia which continued to improve over time. Post chest tube removal patient continues to feel better and was deemed stable to be discharged home with close instructions to follow-up with
all her physicians outpatient.
Discharge Plan
-
Patient Disposition: Home (Routine Discharge)
Discharge Diagnosis/Procedures: Right iatrogenic pneumothorax post bronchoscopy
Nausea/vomiting likely secondary to anesthesia
Diet: As tolerated
Activity: As tolerated
Driving Restrictions: As prior to admission
Bathing Restrictions: None
Referrals:
Lninea Mccarty MD [Active, Pulmonary Medicine] - in two weeks
Larry Rothman Jr., DO [Family Provider, Internal Medicine] - in less than 1 week
Prescriptions:
New
acetaminophen 325 mg Tablet
650 mg PO Q4HPRN PRN (Reason: mild pain/NICHOLS/temp> 100.4F) Qty: 0 0RF
polyethylene glycol 3350 17 gram Powder In Packet
17 g PO DAILY Qty: 0 0RF
sennosides-docusate sodium [Senna Plus] 8.6-50 mg Tablet
1 tab PO BID Qty: 0 0RF
Continued
gabapentin 300 MG capsule
300 mg PO TID
estradiol 0.5 MG tablet
0.5 mg PO DAILY
famotidine 40 mg Tablet
40 mg PO DAILY
levothyroxine 125 mcg Tablet
125 mcg PO DAILY
rosuvastatin 5 mg Tablet
5 mg PO DAILY
pablitopdrr-hdinc-sfb 118-10-40.8-36 mg Capsule
1 tab PO QID PRN (Reason: cystic bladder)
valacyclovir [Valtrex] 1 gram Tablet
1,000 mg PO DAILY
losartan 25 mg Tablet
25 mg PO DAILY
fluticasone furoate-vilanterol [Breo Ellipta] 200-25 mcg/dose Blister With Device
1 inh INHALATION Q24H
Cimzia 200 mg/mL Syringe Kit
200 mg SC Q2W
Patient Comments:
each arm Q 2 weeks
methotrexate sodium 2.5 mg tablet
20 mg PO TU
Patient Comments:
8 tabs one day /week
Cortrophin Gel
1 dose SC DAILY PRN (Reason: psoriatic arthritis)
cyanocobalamin (vitamin B-12) 50 mcg Tablet
50 mcg PO DAILY
cholecalciferol (vitamin D3) [Vitamin D3] 50 mcg (2,000 unit) Tablet
50 mcg PO DAILY
magnesium
1 dose PO DAILY
Discharge Orders:
Discharge Patient (As Directed); Ordered 02/28/25
Ordered By: Andres Deshpande
Discharge Date and Time
Discharge Date/Time: 02/28/25 17:06
Print Language: WELSH
[2025-02-28 15:28] VITALS: BP 142/59
== END 2025-02-28 17:06 | disposition home health service (06) | DRG 200 ==
LOC: 2 NORTH 19:12
PROVIDERS: Physician Assistant; Radiology Vascular & Interventional Radiology; Registered Nurse; ADMITTING PHYSICIAN Internal Medicine; ATTENDING PHYSICIAN Internal Medicine; EMERGENCY PHYSICIAN Emergency Medicine; FAMILY PHYSICIAN Family Medicine; OTHER PHYSICIAN Internal Medicine Critical Care Medicine
PROC: 0W9930Z Drainage of Right Pleural Cavity with Drainage Device, Percutaneous Approach (ICD-10-PCS; 2025-02-27)
PROC: 0WP9X0Z Removal of Drainage Device from Right Pleural Cavity, External Approach (ICD-10-PCS; 2025-02-28)
DX: J95.811 Postprocedural pneumothorax (principal); J94.8 Other specified pleural conditions; J98.11 Atelectasis; K21.9 Gastro-esophageal reflux disease without esophagitis; L40.50 Arthropathic psoriasis, unspecified; R59.9 Enlarged lymph nodes, unspecified; R91.1 Solitary pulmonary nodule; M54.50 Low back pain, unspecified; E03.9 Hypothyroidism, unspecified; I10 Essential (primary) hypertension; G47.33 Obstructive sleep apnea (adult) (pediatric); I25.10 Atherosclerotic heart disease of native coronary artery without angina pectoris; M47.812 Spondylosis without myelopathy or radiculopathy, cervical region; M81.0 Age-related osteoporosis without current pathological fracture; E04.2 Nontoxic multinodular goiter; B02.9 Zoster without complications; J47.9 Bronchiectasis, uncomplicated; J43.9 Emphysema, unspecified; I71.9 Aortic aneurysm of unspecified site, without rupture; R11.2 Nausea with vomiting, unspecified; R51.9 Headache, unspecified; F17.200 Nicotine dependence, unspecified, uncomplicated; Z90.710 Acquired absence of both cervix and uterus; Z79.631 Long term (current) use of antimetabolite agent; Z79.84 Long term (current) use of oral hypoglycemic drugs; Z79.51 Long term (current) use of inhaled steroids; Z79.899 Other long term (current) drug therapy; Z88.8 Allergy status to other drugs, medicaments and biological substances; Z91.041 Radiographic dye allergy status; Z88.5 Allergy status to narcotic agent; Z88.0 Allergy status to penicillin; Z91.013 Allergy to seafood; Z79.890 Hormone replacement therapy
CPT/HCPCS: 32557; 71045; 71046; 76000; 80048; 80053; 85025; 85027; 87070; 87102; 87116; 87205; 88112; 88173; 94640; 96361; 96374; 99152; 99153; 99284; 99406; C1729; C1769

== ENCOUNTER → 2025-03-04 13:12 | Outpatient (REF) | payer MEDICARE, OTHER, SELFPAY | LOC: RAD 13:12 | PROVIDERS: ATTENDING PHYSICIAN Surgery Vascular Surgery; FAMILY PHYSICIAN Family Medicine | DX: I71.40 Abdominal aortic aneurysm, without rupture, unspecified (principal) | CPT/HCPCS: 71275; 74174; Q9967 ==

== ENCOUNTER → 2025-03-08 11:03 | Outpatient (REF) | payer MEDICARE, OTHER, SELFPAY ==
[2025-03-08 11:54] LABS: Hematocrit 43.9 % (37.0-47.0); Hemoglobin 14.3 g/dL (12.0-16.0); Mean Corp Hgb Conc. 32.6 g/dL (33.0-37.0); Mean Corpuscular Volume 91.1 fL (81.0-99.0); Nucleated Red Blood Cells % 0 %; Platelet Count 352 10^3/uL (130-400); Red Cell Dist. Width 13.9 % (11.5-14.5)
[2025-03-08 12:31] LABS: C-Reactive Protein < 5.00 mg/L (0.0-10.00)
[2025-03-08 12:34] LABS: ALT (SGPT) 43 U/L (0-35); AST (SGOT) 27 U/L (14-36); Albumin 4.5 g/dl (3.5-5.0); Alkaline Phosphatase 80 U/L (38-126); Blood Urea Nitrogen 13 mg/dl (7-17); Calcium 9.6 mg/dl (8.4-10.2); Carbon Dioxide 26 mmol/L (22-30); Chloride 104 mmol/L (98-107); Glucose 95 mg/dl (70-99); Potassium 4.9 mmol/L (3.5-5.1); Sodium 137 mmol/L (135-145); Total Protein 7.3 g/dl (6.3-8.2); eGFR > 60.00
== END ==
LOC: RAD 11:03
PROVIDERS: ATTENDING PHYSICIAN Internal Medicine Critical Care Medicine; FAMILY PHYSICIAN Family Medicine; OTHER PHYSICIAN Internal Medicine
DX: J93.9 Pneumothorax, unspecified (principal); M35.9 Systemic involvement of connective tissue, unspecified; M06.4 Inflammatory polyarthropathy; Z51.81 Encounter for therapeutic drug level monitoring; A15.9 Respiratory tuberculosis unspecified
CPT/HCPCS: 36415; 71046; 80053; 85025; 85652; 86140; 86480

== ENCOUNTER → 2025-03-18 09:55 | Outpatient (REF) | payer MEDICARE, OTHER, SELFPAY | LOC: HWRAD 09:55 | PROVIDERS: ATTENDING PHYSICIAN Family Medicine | DX: K76.89 Other specified diseases of liver (principal) | CPT/HCPCS: 76700 ==

== ENCOUNTER → 2025-04-05 14:41 | Outpatient (REF) | payer MEDICARE, OTHER, SELFPAY ==
[2025-04-05 15:56] LABS: ALT (SGPT) 27 U/L (0-35); AST (SGOT) 21 U/L (14-36); Albumin 4.2 g/dl (3.5-5.0); Alkaline Phosphatase 86 U/L (38-126); Blood Urea Nitrogen 14 mg/dl (7-17); Calcium 9.1 mg/dl (8.4-10.2); Carbon Dioxide 26 mmol/L (22-30); Chloride 104 mmol/L (98-107); Glucose 86 mg/dl (70-99); Potassium 4.0 mmol/L (3.5-5.1); Sodium 138 mmol/L (135-145); Total Protein 6.8 g/dl (6.3-8.2); eGFR > 60.00
[2025-04-05 16:09] LABS: Hematocrit 39.6 % (37.0-47.0); Hemoglobin 13.3 g/dL (12.0-16.0); Mean Corp Hgb Conc. 33.6 g/dL (33.0-37.0); Mean Corpuscular Volume 91.5 fL (81.0-99.0); Nucleated Red Blood Cells % 0 %; Platelet Count 289 10^3/uL (130-400); Red Cell Dist. Width 14.6 % (11.5-14.5)
== END ==
LOC: RAD 14:41
PROVIDERS: ATTENDING PHYSICIAN Family Medicine
DX: R06.09 Other forms of dyspnea (principal); R05.1 Acute cough; Z87.09 Personal history of other diseases of the respiratory system; J43.1 Panlobular emphysema; I10 Essential (primary) hypertension
CPT/HCPCS: 36415; 71046; 80053; 85025

== ENCOUNTER 2025-04-18 14:34 | Inpatient (IN) | payer MEDICARE, OTHER, SELFPAY ==
[2025-04-18] VITALS (11 sets, daily range): BP systolic 121–146; BP diastolic 50–101; BMI 29.5; BMI 29.3
--- NOTE | 2025-04-18 06:55 | ED.GENMED ---
History of Present Illness
General
Chief Complaint: Breathing Problem
Source: patient
Time Seen by Provider: 04/18/25 06:34
History of Present Illness
History of Present Illness:
This patient is a 64-year-old female with a history of Legionella pneumonia for which she was hospitalized earlier this year, who was noted to have pulmonary nodules on follow-up imaging, followed by a bronchoscopy earlier this month which was
complicated by pneumothorax. Patient was admitted to the hospital for this, chest tube was placed and then ultimately removed and patient discharged. She states her breathing has been 'labored' ever since the bronchoscopy but her pulse ox has been
stable at 92% or above. 2 weeks ago she developed 'thick dark mucus', and was prescribed doxycycline and prednisone. This helped resolve her symptoms. Then, yesterday, she developed discomfort in the right side of her chest, worse with a deep
breath, similar to when she had a pneumothorax. Then, this morning, she had an episode of small amount of hemoptysis. She denies abdominal pain, nausea, vomiting. She is mildly dyspneic. She denies leg swelling. She did have a low-grade fever
of 101 yesterday but denies chills or sweats. She denies sore throat, congestion, headache, neck pain, photophobia, or other complaints.
Past History
Past History
ED Past Medical History: Asthma, COPD, GERD, Other (low back pain, Mitral and aortic prolapse) and Other (Psoriatic arthritis)
ED Past Surgical History: , Gynecological (Hysterectomy) and Other (nasal surgery)
Patient has exhibited threatening behavior?: No
Social History
Tobacco: Smoker
Alcohol: Occasional
Drug: None
Personal:
Living: alone
Phy Exam
Physical Exam
Physical Exam:
GENERAL: Alert , in no apparent distress, smiling, speaks in full sentences easily
EYE: pupils equal and reactive
NECK: Supple, no significant adenopathy.
ENT: o/p clr, mmm, no trismus, no drool, voice clear.
CARDIAC: Regular rate and rhythm .
LUNGS: Equal and clear breath sounds bilaterally, no acute respiratory distress, no wheezes/rales/rhonchi
ABDOMEN: Soft, without focal tenderness, no r/g, no cvat
NEUROLOGICAL: Alert and oriented, no focal neuro deficits
SKIN: Warm and dry, skin intact.
MUSCULOSKELETAL: No edema, well perfused.
PSYCH: Normal and appropriate interaction.
Scores
Heart Failure Risk
Heart Failure Risk Score: Not Applicable
Sepsis
Sepsis Screening
Sepsis Assessment: Sepsis Ruled Out
Sepsis Screen
Sepsis Screen: Sepsis Ruled Out
Date: 04/22/25
Time: 01:29
Course
Orders/Labs/Results
Orders:
Orders
04/18/25 06:43
Electrocardiogram (*1) Urgent
Reason for Study: Hypertension, Benign
04/18/25 06:45
Complete Blood Count/With Diff Urgent
Comprehensive Metabolic Panel Urgent
Lactic Acid Urgent
Troponin I Urgent
Blood Culture Urgent
KELLY Source: Blood/Venous
Specimen Description:
04/18/25 07:08
CR Chest - 2 Views Urgent
Comment:
Reason For Exam: hx ptx, now hemopytsis/cp
04/18/25 07:24
Diphenhydramine [Benadryl] 50 mg IV NOW STA
Hydrocortisone Sod Succinate [Solu-Cortef] 200 mg IV NOW STA
04/18/25 07:28
CT Chest PE Study Urgent
Comment:
Reason For Exam: hemoptysis
04/18/25 09:47
0.9% Sodium Chloride 1000 ml [Nss] 2,600 ml IV NOW STA
04/18/25 09:55
Azithromycin 500 mg/250 ml [Zithromax Infusion] 500 mg in 250 ml IV NOW
04/18/25 Lunch
Cholesterol Lowering
At Your Request: Full Participation
Cholesterol Lowering: Sodium, 2 Gram
04/18/25 10:35
Lactic Acid Q4H
Comment: CANCEL 2nd LACTIC ACID IF 1st LACTIC ACID IS LESS THAN 2
04/18/25 10:44
Blood Culture Q30M
KELLY Source: Blood/Venous
Specimen Description:
04/18/25 10:47
Blood Culture Q30M
KELLY Source: Blood/Venous
Specimen Description:
04/18/25 10:58
PULMONARY CONSULT Routine
Consulting Provider: Quintin Chun
Was physician already notified: Yes
Reason for consult: Hemoptysis. recent bronchoscopy and pneumothorax
04/18/25 11:07
INFECTIOUS DISEASE CONSULT Routine
Consulting Provider: Girma Acevedo
Was physician already notified: Yes
Reason for consult: RT upper lung lobe with possible infectious process. Sepsis, hemoptysis
04/18/25 12:28
Legionella Urinary Antigen Urgent
KELLY Source: Urine
Specimen Description:
04/18/25 13:38
COVID-19 Antigen Routine
Source: Nasal Swab
Influenza A+B Rapid Molecular Routine
KELLY Source: Nasal Swab
Specimen Description:
04/18/25 14:01
Admit/Transfer Patient As Directed
Co-Sign Provider:
Level of Care: Inpatient admission
Assign to:: Telemetry
Physician / Group: Dr. Ac Ferreira/Hospitalists
Diagnosis: Hemoptysis, shortness of breath
Reason for Telemetry: Arrhythmia
Date to Stop Telemetry: 04/21/25
Time to Stop Telemetry: 11:00
Reason for Hospitalization: Hemoptysis, shortness of breath
Expected length of stay greater than two midnights?: Yes
ELOS- Estimated Length of Stay in days: 4
I certify the patient meets the requirements for IP care: Yes
04/18/25 14:05
Code Status As Directed
Resuscitation Status: Full Code
04/18/25 15:34
Acetaminophen [Tylenol] 650 mg PO Q4HPRN PRN fever >101, mild pain fever >101, mild pain
Bisacodyl [Dulcolax] 10 mg RECTAL [id number] PRN
Docusate W/Senna [Senokot-S] 1 tablet PO BIDPRN PRN
Polyethylene Glycol Powder [Miralax] 17 grams PO DAILYPRN PRN
04/18/25 15:34
Activity As Directed
Activity Level: As Tolerated
Pneumatic Compression Sleeves As Directed
Type: Knee high
Vital Signs As Directed
Frequency: Per unit guidelines
DX Deep Vein Thrombosis Video Routine
04/18/25 20:00
Budesonide/Formoterol 160/4.5 [Symbicort 160/4.5 Mcg Inhaler] 2 puff INH R BID
04/18/25 22:00
Gabapentin [Neurontin] 300 mg PO HS
04/19/25 05:22
Basic Metabolic Panel IN AM
Complete Blood Count/With Diff IN AM
04/19/25 06:00
Levothyroxine [Synthroid] 125 mcg PO DAILY@0600
04/19/25 08:00
Cholecalciferol (Vitamin D3) [VITAMIN D3 (cholecalciferol)] 50 mcg PO DAILY
Cyanocobalamin [Vitamin B-12] 50 mcg PO DAILY
Estradiol [Estrace] 0.5 mg PO DAILY
FOLic ACID [Folvite] 3 mg PO DAILY
Famotidine [Pepcid] 40 mg PO DAILY
LevoFLOXacin [Levaquin] 750 mg PO DAILY
Loratadine [Claritin] 10 mg PO DAILY
Losartan [Cozaar] 25 mg PO DAILY
Magnesium Oxide 200 mg PO DAILY
Rosuvastatin Calcium [Crestor] 5 mg PO DAILY
Valacyclovir HCl [Valtrex] 1,000 mg PO DAILY
04/20/25 05:19
Basic Metabolic Panel IN AM
Complete Blood Count/With Diff IN AM
04/21/25 11:00
DC Protocol for Telemetry ONCE
Abnormal Lab Results
04/18/25
06:45
WBC 28.6 H 10^3/uL
(4.8-10.8)
MCH 31.1 H pg
(27.0-31.0)
Abs Immat Gran (auto) 0.2 H 10^3/uL
(0-0.05)
Absolute Neuts (auto) 22.9 H 10^3/uL
(1.4-6.5)
Absolute Monos (auto) 2.8 H 10^3/uL
(0.1-0.6)
Immature Gran % 0.7 H %
(0-0.5)
Neutrophils % 80.1 H %
(42.2-75.2)
Lymphocytes % 8.9 L %
(20.5-51.1)
Monocytes % 9.6 H %
(1.7-9.3)
Sodium 131 L mmol/L
(135-145)
Glucose 115 H mg/dl
(70-99)
04/18/25 06:45
04/18/25 06:45
Vital Signs
Initial and Last Documented VS:
Initial Vital Signs
Temp Pulse Resp BP Pulse Ox
98.4 F 92 30 129/59 95
04/18/25 06:23 04/18/25 06:23 04/18/25 06:23 04/18/25 06:23 04/18/25 06:23
Last Documented Vital Signs
Temp Pulse Resp BP Pulse Ox
97.7 F 86 18 154/72 95
04/20/25 15:48 04/20/25 15:48 04/20/25 15:48 04/20/25 15:48 04/20/25 15:48
*Pulse Oximetry
SaO2: 95
Oxygen Mode of Delivery: Room air
Patient hypoxic: no
*Critical Care Note
Total Time (30-74mins, 75-104mins- exclusive of procedures): Not Applicable
Update Note
Update Note:
Patient presents to the Emergency Department with ___dyspnea and blood-tinged sputum
Number and Complexity of Problems Addressed at the Encounter
� Chronic conditions affecting care:
� Acute Exacerbation and/or Progression of Chronic Illness:
� Differential Diagnosis includes: But not limited to pneumothorax, PE, pneumonia, etc. etc.
Amount and/or Complexity of Data to be Reviewed and Analyzed
� I performed an independent evaluation of and my interpretation is:
EKG:read by me, nsr, no acute ischemia
CT:Focus of groundglass opacity within the right upper lobe, measuring 3.2 cm in greatest dimension, new compared to prior CT. Findings may represent infectious or inflammatory disease, or pulmonary hemorrhage given history of
hemoptysis.
2. Adjacent 7 mm nodule within the right upper lobe, unchanged compared to recent prior CT. Continued CT surveillance is suggested.
3. Moderate diffuse emphysema. Patient should be assessed for an annual low-dose lung cancer CT program, as pulmonary emphysema is an independent risk factor for lung cancer.
4. Mild coronary arterial calcification. Please correlate with symptoms of and risk factors for coronary artery disease, with further workup as clinically appropriate.
Xrays:
Laboratory Studies:leukocytosis with shift, mild hyponatremia
Other:
� Review of other/old records reveals: Discharge summary from patient's recent hospitalizations reviewed by me including right upper and middle lobe nodules noted in late January.
� Clinical information was obtained by an independent historian:
� Prescriptions/Medications Considered but not given:
� Further testing considered but not performed:
Risk of Complications and/or Morbidity or Mortality of Patient Management
� Social determinants of health affecting care:
� Discussion with other providers (PCP, Hospitalists, Consultants, etc):
� Escalation of care including admission/observation vs risk of discharge considered:Pt remains stable here. Not hypotensive. Updated pt, d/w hospitalist for admission. Will c/s ID, abx started.
ED Attending Note
-
Portions of this chart may have been created with voice recognition software.� Occasional wrong word or��sound alike� substitutions may have occurred due to the inherent limitations of voice recognition software.
Discharge Plan
Departure
Patient Disposition: Admit
Date of Disposition: 04/18/25
Time of Disposition: 10:26
Admit to: Telemetry
Presentation/result/management discussed w/ accepting MD/DO: Hospitalist
Condition: Good
Discharge Problem:
Sepsis
Interventions
Interventions:
*Risk Screen - Suicide Last Done: 04/18/25 06:23
*General Assessment Last Done: 04/18/25 06:40
*Neglect/Abuse Screening Last Done: 04/18/25 06:40
*ED- Fall Risk Assessment Last Done: 04/18/25 06:40
*ED COVID-19 Vaccine History Last Done: 04/18/25 06:40
*ED Influenza Vaccine History Last Done: 04/18/25 06:40
*Nursing Disposition Last Done: 04/18/25 15:32
ED- Cardiac Assessment Last Done: 04/18/25 06:36
ED- Pulmonary Assessment Last Done: 04/18/25 09:15
Discharge Date and Time
Discharge Date/Time: 04/18/25 15:32
[2025-04-18 07:13] LABS: Hematocrit 41.4 % (37.0-47.0); Hemoglobin 13.7 g/dL (12.0-16.0); Mean Corp Hgb Conc. 33.1 g/dL (33.0-37.0); Mean Corpuscular Volume 93.9 fL (81.0-99.0); Platelet Count 314 10^3/uL (130-400); Red Cell Dist. Width 14.5 % (11.5-14.5)
[2025-04-18 07:21] LABS: ALT (SGPT) 32 U/L (0-35); AST (SGOT) 19 U/L (14-36); Albumin 4.2 g/dl (3.5-5.0); Alkaline Phosphatase 98 U/L (38-126); Blood Urea Nitrogen 13 mg/dl (7-17); Calcium 9.4 mg/dl (8.4-10.2); Carbon Dioxide 28 mmol/L (22-30); Chloride 99 mmol/L (98-107); Estimated Creatinine Clearance 93 ml/min; Glucose 115 mg/dl (70-99); Potassium 3.9 mmol/L (3.5-5.1); Sodium 131 mmol/L (135-145); Total Protein 7.2 g/dl (6.3-8.2); eGFR > 60.00
[2025-04-18 07:33] LABS: Troponin I < 0.012 ng/ml
[2025-04-18] MEDS: BENADRYL 50 MG IV (07:39)
[2025-04-18 07:40] LABS: Nucleated Red Blood Cells % 0 %
[2025-04-18] MEDS: SOLU-CORTEF 200 MG IV (07:41)
[2025-04-18] MEDS: ZITHROMAX INFUSION 250 IV (10:55)
[2025-04-18] MEDS: NSS 2600 ML IV (10:56)
--- NOTE | 2025-04-18 11:11 | HPS.HSE ---
Family Physician
-
Family Physician: Larry Rothman Jr.
Chief Complaint
-
Coughing up blood clots
History of Present Illness
64-year-old female with past medical history of ocular shingles, psoriatic arthritis (on Cimzia and Methotrexate), COPD, bronchiectasis, coronary artery disease, anemia, essential hypertension, hypothyroidism, GERD, migraine and lung nodule who
presented with coughing up blood clots starting around 3 AM this morning. Patient also reported pleuritic type of chest pain, as well as feeling like she had a fever prior to presentation. She denied any other symptoms. She recently finished a
course of antibiotics and steroids outpatient for pneumonia.
Medical History
Past Medical History
Past Medical History: Reports Other (As per HPI above)
Past Surgical History: Reports , Gynocological (Hysterectomy) and Other (Nasal Surgery)
Social History
Tobacco: Former Smoker
Alcohol: Occasional
Drug: None
Family History
Family History: Not pertinent
Allergies / Home Medications
Allergies reflects when Allergies were last updated in [facility].
Home Medications with original date entered in [facility]
Allergy/Medication List:
Allergies
Allergy/AdvReac Type Severity Reaction Status Date / Time
cortisone Allergy Unknown Itching, Verified 04/18/25 06:22
swelling
iodine Allergy Itching Verified 04/18/25 06:22
morphine (Morphine) Allergy itching, Verified 04/18/25 06:22
swelling,
difficulty
breathing,
nausea
oxycodone HCl (From Percocet) Allergy Pharmacy Verified 04/18/25 06:22
to Review
Penicillins Allergy itching, Verified 04/18/25 06:22
swelling,
difficulty
breathing,
nausea
secukinumab (From Cosentyx) Allergy Swelling Verified 04/18/25 06:22
shellfish derived Allergy itching, Verified 04/18/25 06:22
swelling,
difficulty
breathing,
nausea
Home Medications
estradiol 0.5 mg tablet 0.5 mg PO DAILY Hormonal Agent 09/06/18
gabapentin 300 mg capsule 300 mg PO HS Neurological Condition 09/06/18
famotidine 40 mg tablet 40 mg PO DAILY Gastrointestinal Issue 10/24/24
levothyroxine 125 mcg tablet (Synthroid) 125 mcg PO DAILY Thyroid 10/24/24
rosuvastatin 5 mg tablet 5 mg PO DAILY High Cholesterol 10/24/24
certolizumab pegol 200 mg/mL subcutaneous syringe kit (Cimzia) 200 mg SC Q2W Autoimmune Disorder 02/21/25
cholecalciferol (vitamin D3) 50 mcg (2,000 unit) tablet (Vitamin D3) 50 mcg PO DAILY Supplement 02/21/25
cyanocobalamin (vitamin B-12) 50 mcg tablet 50 mcg PO DAILY Supplement 02/21/25
fluticasone furoate 200 mcg-vilanterol 25 mcg/dose inhalation powder (Breo Ellipta) 1 inh inhalation R DAILY Lung/Breathing Issues 02/21/25
losartan 25 mg tablet 25 mg PO DAILY Blood Pressure 02/21/25
magnesium oxide 200 mg PO DAILY Supplement ##0 02/21/25
methotrexate sodium 2.5 mg tablet 20 mg PO TU Autoimmune Disorder 02/21/25
valacyclovir 1 gram tablet (Valtrex) 1,000 mg PO DAILY Infection 02/21/25
acetaminophen 325 mg tablet 650 mg PO Q4HPRN PRN FEVER 04/18/25
folic acid 1 mg tablet 3 mg PO DAILY Supplement 04/18/25
ibuprofen 200 mg tablet (Advil) 400 mg PO DAILYPRN PRN HEADACHE 04/18/25
loratadine 10 mg tablet 10 mg PO DAILY 04/18/25
Review of Systems
-
A 12 point ROS was completed and negative except as noted: Yes
Physical Exam
Vital Signs
Vital Signs
Temp Pulse Resp BP Pulse Ox
98.4 F 79 21 132/55 95
04/18/25 06:23 04/18/25 09:15 04/18/25 09:02 04/18/25 09:01 04/18/25 09:15
Physical Exam
General: No Apparent Distress
HEENT: NormoCephalic and Moist mucous membranes
Respiratory: Clear
Cardiac: S1/S2 and Regular Rhythm
GI: Soft, Non Tender and Normal Bowel Sounds
Musculoskeletal: No Cyanosis
Skin: Warm and Dry
Neuro: Awake, Alert, AO x 3 and Nonfocal/grossly intact
Psych: Calm and Intact Judgment/Insight
Laboratory Results
-
04/18/25 06:45
04/18/25 06:45
Laboratory Results
Lactic Acid 1.0 mmol/L (0.7-2.0) 04/18/25 10:35
Total Bilirubin 1.1 mg/dl (0.2-1.3) 04/18/25 06:45
AST 19 U/L (14-36) 04/18/25 06:45
ALT 32 U/L (0-35) 04/18/25 06:45
Alkaline Phosphatase 98 U/L (38-126) 04/18/25 06:45
Troponin I < 0.012 ng/ml 04/18/25 06:45
Impression/Plan
-
Assessment/Plan
Pleuritic Chest Pain
Hemoptysis
New groundglass opacity within the right upper lobe
Fever -- Tmax 101 F at home, prior to arrival
History of Legionella Pneumonia in September to October 2024
Immunocompromised (on Cimzia and Methotrexate outpatient for psoriatic arthritis)
Penicillin Allergy
-No PE on CT Chest
-Initially got Azithromycin in the ER
-Now on Levaquin, appreciate ID
-Pulmonary hemorrhage? Appreciate pulmonary. Holding blood thinners.
-Follow blood cultures
-Monitor respiratory status closely
-Monitor on telemetry
Right iatrogenic pneumothorax-post bronchoscopy 02/25/2025
-Was hospitalized 01/2025 to 02/2025 with right sided pneumothorax status post bronchoscopy that was done outpatient, got chest tube at that time which was removed prior to discharge
History of pulmonary nodules
-Underwent bronchoscopy 02/25/25 with brushing of the solid mass and BAL being preformed; there were significant secretions; respiratory, fungal and AFB cultures were done and are no growth to date.
History of ocular shingles
-Continue Valtrex (this is chronic for patient)
Psoriatic arthritis
-Hold home Cimzia and Methotrexate for now given suspected pneumonia
History of headache/nausea vomiting-thought to be perhaps from sedation anesthesia
COPD/emphysema - continue home Breo or equivalent
Lung nodules - pulmonary following
Bronchiectasis
Hypothyroidism - stable; continue Levothyroxine
Aortic aneurysm
Coronary artery disease - continue Rosuvastatin
Hypertension - stable; continue Losartan
Hyperlipidemia - continue statin
Obstructive sleep apnea
Arthritis
Osteoporosis
Cervical arthritis
Low back pain
GERD
History of migraine
#DVT Prophylaxis: SCDs
#CODE Status: Full Code
Hemoptysis with fever and pleuritic chest pain, in the setting of immunosuppression, is a high risk encounter.
--- NOTE | 2025-04-18 11:33 | CON.PUL ---
Consultation
Consultation Request
Date/Time Consultation Requested: 04/18/25-11:30 AM
Date/Time Consultation Performed: 04/18/25-11:30 AM
Requesting Provider: hospitalist
Performing Provider: Dr. Chun
Reason for Consultation: hemoptysis
Medical History
-
Chief Complaint: hemoptysis, shortness of breath
History of Present Illness:
64-year-old smoking female with underlying COPD, asthma, GERD, psoriatic arthritis, recent Legionella pneumonia and pulmonary nodules status post bronchoscopy with subsequent 'reaction to anesthesia' resulting and repetitive retching and emesis
contributing to development of pneumothorax status post chest tube over the last several weeks had increasing shortness of breath, minimally responsive to doxycycline and prednisone from primary and now presents with small amount of hemoptysis,
fevers, chills, sputum production, shortness of breath-consulted for hemoptysis/pleurisy/shortness of breath 04/18/25. The patient states that over the last couple days she has had some fevers, discolored sputum, increasing shortness of breath and
pleurisy on the right side when she takes a deep breath. She also had some hemoptysis that was quarter size about 4 times. She continues to have some mild pleurisy on the right, dyspnea exertion but no abdominal pain, nausea, leg swelling, or
focal weakness.
Past Medical History
Past Medical History: None ( COPD/asthma overlap. Cigarette smoker. Pulmonary nodules, status post bronchoscopy 01/2025. history of Legionella pneumonia. CHRISSIE/CPAP. CAD. Hypothyroid. Allergies. Ost GERD. Chronic lower back pain. Mitral and
aortic prolapse. Psoriatic arthritis. . Hysterectomy. Nasal surgery.)
Past Surgical History: None ( Interstitial cystitis. Cervical spine C5-7 foraminal ectomy. Left shoulder surgery 2016. Dental implants. . Multiple abdominal surgeries. Bladder lift.)
Social History
Tobacco: Smoker
Alcohol: Occasional
Drug: None
Personal:
Occupational Exposures: No known asbestos exposure
Environmental Exposures: . No known tuberculosis exposure
Family History
Family History: Reviewed & Not Pertinent (Family history of lung cancer-Sister. Father-thyroid cancer. Mother-breast cancer. Maternal uncle and aunt-colon cancer. Kvvfko-ohj-Bgkpnnb's lymphoma.)
Allergies / Home Medications
Allergies
Allergy/AdvReac Type Severity Reaction Status Date / Time
cortisone Allergy Unknown Itching, Verified 04/18/25 06:22
swelling
iodine Allergy Itching Verified 04/18/25 06:22
morphine (Morphine) Allergy itching, Verified 04/18/25 06:22
swelling,
difficulty
breathing,
nausea
oxycodone HCl (From Percocet) Allergy Pharmacy Verified 04/18/25 06:22
to Review
Penicillins Allergy itching, Verified 04/18/25 06:22
swelling,
difficulty
breathing,
nausea
secukinumab (From Cosentyx) Allergy Swelling Verified 04/18/25 06:22
shellfish derived Allergy itching, Verified 04/18/25 06:22
swelling,
difficulty
breathing,
nausea
Home Medications
�Medication �Instructions �Recorded �Confirmed �Last Taken �Type
estradiol 0.5 mg tablet 0.5 mg PO DAILY Hormonal Agent 09/06/18 04/18/25 04/18/25 History
gabapentin 300 mg capsule 300 mg PO HS Neurological Condition 09/06/18 04/18/25 04/16/25 History
famotidine 40 mg tablet 40 mg PO DAILY Gastrointestinal 10/24/24 04/18/25 04/17/25 History
Issue
levothyroxine 125 mcg tablet 125 mcg PO DAILY Thyroid 10/24/24 04/18/25 04/18/25 History
(Synthroid)
rosuvastatin 5 mg tablet 5 mg PO DAILY High Cholesterol 10/24/24 04/18/25 04/18/25 History
certolizumab pegol 200 mg/mL 200 mg SC Q2W Autoimmune Disorder 02/21/25 04/18/25 04/11/25 History
subcutaneous syringe kit (Cimzia)
cholecalciferol (vitamin D3) 50 50 mcg PO DAILY Supplement 02/21/25 04/18/25 02/23/25 History
mcg (2,000 unit) tablet (Vitamin
D3)
cyanocobalamin (vitamin B-12) 50 50 mcg PO DAILY Supplement 02/21/25 04/18/25 02/22/25 History
mcg tablet
fluticasone furoate 200 1 inh inhalation R DAILY 02/21/25 04/18/25 02/25/25 09:00 History
mcg-vilanterol 25 mcg/dose Lung/Breathing Issues
inhalation powder (Breo Ellipta)
losartan 25 mg tablet 25 mg PO DAILY Blood Pressure 02/21/25 04/18/25 04/18/25 History
magnesium oxide 200 mg PO DAILY Supplement ##0 02/21/25 04/18/25 02/22/25 History
methotrexate sodium 2.5 mg tablet 20 mg PO TU Autoimmune Disorder 02/21/25 04/18/25 02/19/25 History
valacyclovir 1 gram tablet 1,000 mg PO DAILY Infection 02/21/25 04/18/25 04/17/25 History
(Valtrex)
acetaminophen 325 mg tablet 650 mg PO Q4HPRN PRN FEVER 04/18/25 04/18/25 04/17/25 History
folic acid 1 mg tablet 3 mg PO DAILY Supplement 04/18/25 04/18/25 04/17/25 History
ibuprofen 200 mg tablet (Advil) 400 mg PO DAILYPRN PRN HEADACHE 04/18/25 04/18/25 04/17/25 History
loratadine 10 mg tablet 10 mg PO DAILY 04/18/25 04/18/25 04/18/25 History
Review of Systems
-
Unable to Obtain full review of systems at this time due to: Other ( Per HPI)
Vitals / Labs / Diagnostic Testing
Vital Signs
Temp Pulse Resp BP Pulse Ox
98.4 F 87 25 127/101 96
04/18/25 06:23 04/18/25 11:25 04/18/25 11:00 04/18/25 11:00 04/18/25 11:00
Lab Data
04/18/25 06:45
04/18/25 06:45
Diagnostic Testing:
Physical Exam
-
Exam:
HEENT atraumatic normocephalic and anicteric. Heart was regular without murmur. Chest With diminished breath sounds, prolonged expiratory time, no wheezes or crackles. Integument without rashes or icterus. Neurologic exam without weakness or
numbness. Abdomen soft and nondistended. The patient had no JVD, cyanosis, clubbing or edema.
Assessment
-
64-year-old smoking female with underlying COPD, asthma, GERD, psoriatic arthritis, recent Legionella pneumonia and pulmonary nodules status post bronchoscopy with subsequent 'reaction to anesthesia' resulting and repetitive retching and emesis
contributing to development of pneumothorax status post chest tube over the last several weeks had increasing shortness of breath, minimally responsive to doxycycline and prednisone from primary and now presents with small amount of hemoptysis,
fevers, chills, sputum production, shortness of breath-consulted for hemoptysis/pleurisy/shortness of breath 04/18/25.
Hemoptysis.
Oclstwevt-nxftbylmn-fcmdjzah in immunocompromised patient
Abnormal CT chest with groundglass opacification-Pneumonia versus hemorrhage
Pleurisy
COPD with mild acute exacerbation.
Leukocytosis-WBC 28.6
Mild hyponatremia.
Mild hyperglycemia
Conditions present prior to admission:
COPD/asthma overlap. , bronchiectasis
Cigarette smoker, having quit September 2024
Pulmonary nodules, status post bronchoscopy 01/2025-brushings, no biopsies.
Pneumothorax post bronchoscopy despite no biopsies-had postanesthesia retching/emesis status post chest tube �24 hours with resolution
History of Legionella pneumonia-September 2024
CHRISSIE/CPAP.
CAD.
Hypothyroid. .
Multiple thyroid nodules-Dr. Lesley Lopez-[facility] endocrinology
Allergies.
Osteopenia.
GERD.
Chronic lower back pain.
Mitral and aortic prolapse.
Psoriatic arthritis-on methotrexate and Cimzia
Interstitial cystitis
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
. Hysterectomy. Nasal surgery.Cervical spine C5-7 foraminectomy. Left shoulder surgery 2016. Dental implants. . Multiple abdominal surgeries. Bladder lift.
Plan
Historically, her acute on top of chronic respiratory complaints exacerbated by probable infection-fevers, leukocytosis, infiltrate on chest x-ray.
Radiographs, with function testing 6 minute walk test, sleep studies, and echocardiograms are reviewed and summarized below
Supplemental oxygen as needed.
Assessment distress. Supplemental oxygen needs at time of discharge.
Nebulizers.
Currently with minimal bronchospasm-observed off steroids.
Mucolytic's
Mucus clearing devices
CPAP or patient's home AutoPap at night
Monitor pleurisy-analgesia as needed-no pulmonary embolism
Monitor hemoptysis-quantify
Check cultures
Sputum culture if able
Empiric antibiotics-cover atypicals as well
Infectious disease consultation pending
Leukocytosis
Follow radiographically
DVT prophylaxis.
Nutrition
Early mobilization.
Reviewed with ED
Last saw Dr. Mccarty 02/19/25 and then again 03/12/25-has appointment 07/02/25 at 9:45 AM-due for CT chest June
Studies:
.
Chest x-ray 04/05/25-NAD.
Chest x-ray 04/18/25-no pneumothorax, COPD changes
.
CT chest 04/18/25-no defects to suggest pulmonary embolism, groundglass opacification right upper lobe measuring 3.2 cm, could represent infectious or inflammatory disease, Earl 7 mm nodule within the right upper lobe is unchanged, moderate diffuse
emphysema, mild coronary artery calcifications
CT chest 01/29/25: right upper lobe nodule has slightly decreased in size, currently 5 mm, prrior was 16 mm.� There are patchy groundglass nodules and bronchiolitis which may be slightly worse.Doppler 01/18/25: Negative left llower extremity DVT
CT chest 03/04/25:no evidence of aortic dissection.� There is evidence of cystic disease bilaterally, scattered nodules, prior left lower lobe nodule which was 3 mm is now 7 mm.� There are additional nodules in the right upper lobe and the right
middle lobe which are new, largest 9 mm.� There is no pneumothorax, no significant adenopathy.� There are a few hepatic cysts.� Kidneys are unremarkable.� There is a 4.4 cm aortic aneurysm in the abdomen
PFT 10/11/24: FVC 4.27/113%, FEV1 2.29/79%, ratio 55.� TLC 6.28/109%, DLCO 13.05/52%.� Mild obstruction with moderate gas exchange defect.� When compared to March 2024, this is trending towards improvement
PFT 04/11/24: FVC 4.00/101%, FEV1 2.09/69%, ratio 52.� TLC 6.50/109%, RV 2.39/106%, DLCO 12.01/47%.� Moderate obstruction with moderate gas exchange defect.� Compared to 2020 this stable
6MWT 10/11/24: Total distance 1350 feet, 96% room air, heart rate 96, dyspnea scale 0/10
6MWT 06/23/23 (): Total distance 1650 feet, desaturation mann 96% on room air, dyspnea scale 2/10
Original sleep study from 05/01/2015 reveals 5.2, REM index 10.6, supine index 12.9.
Echo 02/06/19: normal biventricular function, mild mitral regurgitation. Right heart pressures cannot be determined.
Echocardiogram 02/21/25-71%, mild aortic sclerosis
Data Reviewed
-
PFT: Report reviewed by me
EKG: Report reviewed by me
Radiology: Image personally visualized and interpreted and Report reviewed by me
CT Scan: Image personally visualized and interpreted and Report reviewed by me
Medical Tests (Nuc Med, Echo etc): Report reviewed by me
Labs: Labs reviewed by me
Old Records: Reviewed
Total Time Spent with Patient (in minutes): 65
--- NOTE | 2025-04-18 11:33 | CON.ID ---
Consultation
-
Date/Time Consultation Requested: 04/18/25 11:07
Date/Time Consultation Performed: 04/18/25 11:36
Requesting Provider: Dr Ferreira
Performing Provider: Dr Munguia
Reason for Consultation: Sepsis
Chief Complaint / Past History
Chief Complaint
pleuritic chest pain, hemoptysis
History of Present Illness
Ms Horn is a 64 year old female with Psoriatic Arthritis on cimzia and methotrexate, COPD who presented here today for pleuritic chest pain and scant hemopytsis. She has a history of pulmonary nodules and underwent bronchoscopy 02/25 with brushing
of the solid mass and BAL being preformed. Note there were significant secretions. Respiratory, fungal and AFB cultures were done and are no growth to date. The following day she developed right sided chest pain and shortness of breath and was
found to have a small pneumothorax. She underwent chest tube insertion, overnight the pneumothorax resolved and the chest tube was removed the next day. She reports ongoing 'labored' breathing since the procedure. Pulse oximetry has had
saturations of 92% or above.
Then about 2 weeks ago she developed cough with thick, dark mucous and was seen by her PCP, a CXR was done she believes it was consistent with pneumonia though the CXR we have on file from 04/05 does not show any infiltrates. She was prescribed
doxycycline x10 days and a 12 day prednisone taper - finishing about three days ago. She does not recall the starting or ending dose of the prednisone.
Yesterday she had a migraine and took ibuprofen developed pleuritic chest pain on the right similar to her previous pneumothorax and a fever to 101. The chest pain was ongoing throughout the day and very bothersome. Today she had a small amount of
hemoptysis - 4 quarter sized clots that she coughed up. No sore throat, congestion, headache, nausea, vomiting, abdominal pain, dysuria, urgency, frequency, new rashes or joint pains.
Since arrival here she has been afebrile, bp overall stable, HR 80s, RR 20s, wbc 28.6, hgb 13.7, plt 314, L shift is noted, na 131, k 3.9, cr 0.7, lactic acid 1.1, t bili 1.1, ast 19, alt 32, alk phos 98, CTA PE study: 3 cm ground glass opacity in
the RUL which is new, 7 mm nodule unchanged, diffuse emphysema. She has had a dose of azithromycin today.
Past History
Additional Past Medical History:
Asthma, COPD, GERD, Other (low back pain, Mitral and aortic prolapse) and Other (Psoriatic arthritis)
Additional Past Surgical History:
, Gynecological (Hysterectomy) and Other (nasal surgery)
Allergy History:
cortisone Allergy (Unknown, Verified 04/18/25 06:22)
Itching, swelling
iodine Allergy (Verified 04/18/25 06:22)
Itching
morphine (Morphine) Allergy (Verified 04/18/25 06:22)
itching, swelling, difficulty breathing, nausea
oxycodone HCl (From Percocet) Allergy (Verified 04/18/25 06:22)
Pharmacy to Review
Penicillins Allergy (Verified 04/18/25 06:22)
itching, swelling, difficulty breathing, nausea
secukinumab (From Cosentyx) Allergy (Verified 04/18/25 06:22)
Swelling
shellfish derived Allergy (Verified 04/18/25 06:22)
itching, swelling, difficulty breathing, nausea
Medications Reviewed: Yes
Social History
Tobacco: Smoker
Alcohol: Occasional
Drug: None
Family History
Family History: Not Pertinent
Review of Systems
Vital Signs
Temp Pulse Resp BP Pulse Ox
98.4 F 87 25 127/101 96
04/18/25 06:23 04/18/25 11:25 04/18/25 11:00 04/18/25 11:00 04/18/25 11:00
Physical Exam
Physical Exam
Constitutional: No Acute Distress
Cardiovascular: Regular Rate and S1/S2; Negative Murmur or Rub
Pulmonary: Clear and Symmetric; Negative Wheezes, Rales or Rhonchi
Gastrointestinal: Soft, Non Tender, Non Distended and Normal Bowel Sounds
Skin: Warm and Dry; Negative Rash or Jaundice
Lab / Diagnostic Study Results
04/18/25 06:45
04/18/25 06:45
Abs Immat Gran (auto) 0.2 10^3/uL (0-0.05) H 04/18/25 06:45
Absolute Neuts (auto) 22.9 10^3/uL (1.4-6.5) H 04/18/25 06:45
Absolute Lymphs (auto) 2.6 10^3/uL (1.2-3.4) 04/18/25 06:45
Absolute Monos (auto) 2.8 10^3/uL (0.1-0.6) H 04/18/25 06:45
Absolute Basos (auto) 0.1 10^3/uL (0-0.2) 04/18/25 06:45
Immature Gran % 0.7 % (0-0.5) H 04/18/25 06:45
Neutrophils % 80.1 % (42.2-75.2) H 04/18/25 06:45
Lymphocytes % 8.9 % (20.5-51.1) L 04/18/25 06:45
Monocytes % 9.6 % (1.7-9.3) H 04/18/25 06:45
Eosinophils % 0.2 % (0-6) 04/18/25 06:45
Basophils % 0.5 % (0-2) 04/18/25 06:45
Lactic Acid 1.0 mmol/L (0.7-2.0) 04/18/25 10:35
Microbiology Results
Micro:
04/18/25 10:47 Blood Culture - Pending
Blood/Venous
04/18/25 10:44 Blood Culture - Pending
Blood/Venous
04/18/25 06:45 Blood Culture - Pending
Blood/Venous
Assessment / Plan
Fever
Leukocytosis
Immunosuppression - cimzia
Ground Glass Opacity
Allergy to penicillin - itching, swelling, difficulty breathing
- blood cultures x3 in progress
- influenza negative and COVID ags negative
- normal LFTs
- small area of ground glass opacity: possibly small area of pulmonary hemorrhage vs early viral pneumonia vs early atypical pneumonia vs inflammatory process
- PE ruled out with CTA and troponin/EKG were WNL
- unclear if leukocytosis is reactive to the recently stopped steroids or not
- start levofloxacin 750 mg PO qday tomorrow AM
- follow clinically
--- NOTE | 2025-04-18 11:37 | CM ---
Chart reviewed. Spoke with patient at ED bedside
Recent admission 02/26-02/28 for Rcahel dx with pneumothorax
Lives alone in 2 [place] wth 2 RUPA
Independent with ADLs and ambulation
Drives herself to appts
DME SPC, walker and CPAP by [employer]
Son lives 1 hr away
Her neighbor is watching her dog
PCP Dr. Rothman
Clinical Nurse Occupational Medicine Dr. Chu in
Pharmacy [facility]
hx of VN in 2015 s/p cervical surgery, unsure of name
no hx of SNF
DCP is to return home
Did drive herself to ED
Active with outpatient PT in [place]
CM will continue to follow up for any dcp needs
[2025-04-18 14:11] LABS: COVID-19 Antigen Negative (Negative)
[2025-04-18] MEDS: TYLENOL 650 MG PO (16:11)
--- NOTE | 2025-04-18 16:46 | PTCARENOTE ---
Pt arrived to unit around 1600 this shift, able to ambulate independently from stretcher to bed. VSS. Complaints of 5/10 pain to R chest she said that shes been having and is related to the infection. Pt oriented to room and staff. Dinner ordered,
all needs met at this time. Plan of care ongoing.
[2025-04-18] MEDS: SYMBICORT 160/4.5 MCG INHALER 2 PUFF INH (19:51)
[2025-04-18] MEDS: TYLENOL 1000 MG PO (20:36)
[2025-04-18] MEDS: NEURONTIN 300 MG PO (21:05)
[2025-04-19 03:00] VITALS: BP 126/59
[2025-04-19] MEDS: TYLENOL 650 MG PO ×2 (04:04→14:20)
[2025-04-19] MEDS: SYNTHROID 125 MCG PO (05:44)
[2025-04-19 06:00] VITALS: BMI 29.4
[2025-04-19 06:00] LABS: Hematocrit 36.6 % (37.0-47.0); Hemoglobin 12.2 g/dL (12.0-16.0); Mean Corp Hgb Conc. 33.3 g/dL (33.0-37.0); Mean Corpuscular Volume 93.6 fL (81.0-99.0); Nucleated Red Blood Cells % 0 %; Platelet Count 281 10^3/uL (130-400); Red Cell Dist. Width 14.7 % (11.5-14.5)
[2025-04-19 06:25] LABS: Blood Urea Nitrogen 10 mg/dl (7-17); Calcium 8.7 mg/dl (8.4-10.2); Carbon Dioxide 28 mmol/L (22-30); Chloride 106 mmol/L (98-107); Estimated Creatinine Clearance 96 ml/min; Glucose 91 mg/dl (70-99); Potassium 4.4 mmol/L (3.5-5.1); Sodium 138 mmol/L (135-145); eGFR > 60.00
[2025-04-19 07:00] VITALS: BP 145/51
[2025-04-19] MEDS: SYMBICORT 160/4.5 MCG INHALER 2 PUFF INH ×2 (07:48→17:57)
[2025-04-19] MEDS: ESTRACE 0.5 MG PO (09:11)
[2025-04-19] MEDS: FOLVITE 3 MG PO (09:12)
[2025-04-19] MEDS: CLARITIN 10 MG PO (09:12)
[2025-04-19] MEDS: PEPCID 40 MG PO (09:12)
[2025-04-19] MEDS: LEVAQUIN 750 MG PO (09:12)
[2025-04-19] MEDS: CRESTOR 5 MG PO (09:13)
[2025-04-19] MEDS: VITAMIN D3 (cholecalciferol) 50 MCG PO (09:13)
[2025-04-19] MEDS: VITAMIN B-12 50 MCG PO (09:13)
[2025-04-19] MEDS: MAGNESIUM OXIDE 200 MG PO (09:13)
[2025-04-19] MEDS: COZAAR 25 MG PO (09:14)
[2025-04-19] MEDS: VALTREX 1000 MG PO (09:15)
--- NOTE | 2025-04-19 09:18 | W.PN.PUL.V3 ---
Today's Communication / Plan
-
Quantify hemoptysis
Continue antibiotics
Follow leukocytosis and temperature curve
Toradol for pleurisy unrelieved with Tylenol
Outpatient pulmonary follow-up
Assessment
-
64-year-old smoking female with underlying COPD, asthma, GERD, psoriatic arthritis, recent Legionella pneumonia and pulmonary nodules status post bronchoscopy with subsequent 'reaction to anesthesia' resulting and repetitive retching and emesis
contributing to development of pneumothorax status post chest tube over the last several weeks had increasing shortness of breath, minimally responsive to doxycycline and prednisone from primary and now presents with small amount of hemoptysis,
fevers, chills, sputum production, shortness of breath-consulted for hemoptysis/pleurisy/shortness of breath 04/18/25.
Hemoptysis.
Ibgcjfpwy-ditpcjhic-spfuflov in immunocompromised patient
Abnormal CT chest with groundglass opacification-Pneumonia versus hemorrhage
Pleurisy
COPD with mild acute exacerbation.
Leukocytosis-WBC 28.6
Mild hyponatremia.
Mild hyperglycemia
Conditions present prior to admission:
COPD/asthma overlap. , bronchiectasis
Cigarette smoker, having quit September 2024
Pulmonary nodules, status post bronchoscopy 01/2025-brushings, no biopsies.
Pneumothorax post bronchoscopy despite no biopsies-had postanesthesia retching/emesis status post chest tube �24 hours with resolution
History of Legionella pneumonia-September 2024
CHRISSIE/CPAP.
CAD.
Hypothyroid. .
Multiple thyroid nodules-Dr. Lesley Lopez-[facility] endocrinology
Allergies.
Osteopenia.
GERD.
Chronic lower back pain.
Mitral and aortic prolapse.
Psoriatic arthritis-on methotrexate and Cimzia
Interstitial cystitis
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
. Hysterectomy. Nasal surgery.Cervical spine C5-7 foraminectomy. Left shoulder surgery 2016. Dental implants. . Multiple abdominal surgeries. Bladder lift.
Plan
Historically, her acute on top of chronic respiratory complaints exacerbated by probable infection-fevers, leukocytosis, infiltrate on chest x-ray.
Radiographs, with function testing 6 minute walk test, sleep studies, and echocardiograms are reviewed and summarized below
Supplemental oxygen as needed-currently on 2 L
Assessment discharge supplemental oxygen needs at time of discharge.
Nebulizers if needed-currently not bronchospastic
Currently with minimal bronchospasm-observed off steroids.
Mucolytic's
Mucus clearing devices
CPAP or patient's home AutoPap at night
Monitor pleurisy-analgesia as needed-no pulmonary embolism
Add Toradol as Tylenol is not helping
Monitor hemoptysis-quantify
Cultures reviewed
Influenza negative
Legionella negative
Blood cultures pending
Unable to produce sputum
Sputum culture if able
Empiric antibiotics-cover atypicals as well-currently on levofloxacin
Infectious disease following-correspondence reviewed
Leukocytosis-improved now 19,000
Follow radiographically
DVT prophylaxis.
Nutrition
Early mobilization.
Reviewed with ED
Last saw Dr. Mccarty 02/19/25 and then again 03/12/25-has appointment 07/02/25 at 9:45 AM-due for CT chest June
Studies:
.
Chest x-ray 04/05/25-NAD.
Chest x-ray 04/18/25-no pneumothorax, COPD changes
.
CT chest 04/18/25-no defects to suggest pulmonary embolism, groundglass opacification right upper lobe measuring 3.2 cm, could represent infectious or inflammatory disease, Earl 7 mm nodule within the right upper lobe is unchanged, moderate diffuse
emphysema, mild coronary artery calcifications
CT chest 01/29/25: right upper lobe nodule has slightly decreased in size, currently 5 mm, prrior was 16 mm.� There are patchy groundglass nodules and bronchiolitis which may be slightly worse.Doppler 01/18/25: Negative left llower extremity DVT
CT chest 03/04/25:no evidence of aortic dissection.� There is evidence of cystic disease bilaterally, scattered nodules, prior left lower lobe nodule which was 3 mm is now 7 mm.� There are additional nodules in the right upper lobe and the right
middle lobe which are new, largest 9 mm.� There is no pneumothorax, no significant adenopathy.� There are a few hepatic cysts.� Kidneys are unremarkable.� There is a 4.4 cm aortic aneurysm in the abdomen
PFT 10/11/24: FVC 4.27/113%, FEV1 2.29/79%, ratio 55.� TLC 6.28/109%, DLCO 13.05/52%.� Mild obstruction with moderate gas exchange defect.� When compared to March 2024, this is trending towards improvement
PFT 04/11/24: FVC 4.00/101%, FEV1 2.09/69%, ratio 52.� TLC 6.50/109%, RV 2.39/106%, DLCO 12.01/47%.� Moderate obstruction with moderate gas exchange defect.� Compared to 2020 this stable
6MWT 10/11/24: Total distance 1350 feet, 96% room air, heart rate 96, dyspnea scale 0/10
6MWT 06/23/23 (): Total distance 1650 feet, desaturation mann 96% on room air, dyspnea scale 2/10
Original sleep study from 05/01/2015 reveals 5.2, REM index 10.6, supine index 12.9.
Echo 02/06/19: normal biventricular function, mild mitral regurgitation. Right heart pressures cannot be determined.
Echocardiogram 02/21/25-71%, mild aortic sclerosis
Subjective Data
-
Date of Service:
Date of Service: April 19, 2025
Chief Complaint: Pulmonary Follow Up and Dyspnea Follow Up
Subjective:
Continues to complain of some pleurisy, some hemoptysis and discolored sputum, no other chest pain or abdominal pain, on oxygen, wants to go home
Review of Systems
General: Other (Per HPI)
Objective Data
Data Reviewed
Vital Signs / I&O:
Vital Signs
Temp Pulse Resp BP Pulse Ox
98.0 F 88 16 145/51 90
04/19/25 07:00 04/19/25 07:54 04/19/25 07:54 04/19/25 07:00 04/19/25 07:54
Intake and Output
04/18/25 04/19/25 04/20/25
06:59 06:59 06:59
Intake Total 600 / 600
Balance 600 / 600
SaO2: 90
Nasal Cannula flow liters per minute: 2
Physical Exam
General: Respiratory Distress and Comfortable
HEENT: Normocephalic, Anicteric and Moist Mucous Membranes
Cardiovascular: Regular Rhythm
Respiratory: Clear (Diminished breath sounds), Crackles ( rare basilar), Rhonchi (n), Non-Labored Respirations, Accessory Resp Muscle Use (n) and Stridor (n)
GI: Soft, Non Distended and Non Tender
Neurology: Awake, Alert and No Motor Deficits
Skin: Warm, Good Color, Cyanosis (n), Jaundice (n) and Rash (n)
Labs/Micro/Reports
Lab Data
04/19/25 05:22
04/19/25 05:22
Microbiology
04/18/25 06:45 Blood/Venous Blood Culture - Preliminary
No Growth in 24 hours- Final report to follow
04/18/25 13:38 Nasal Swab Influenza Types A & B (NANDINI) - Final
Negative for Influenza A & B, NAAT
Negative results must be combined with clinical observations
and patient history.
Nucleic Acid Amplification test (NAAT)performed on the
[employer] platform.
04/18/25 12:28 Urine Legionella Urinary Antigen - Final
Negative for Legionella pneumophila Serogroup 1 antigen.
A negative result does not rule out the possiblity of
Legionella infection due to other serogroups or species of
Legionella. Clinical correlation is recommended.
[2025-04-19] MEDS: SENOKOT-S 1 TABLET PO (09:21)
[2025-04-19] MEDS: VISBIOME 1 CAP PO (10:52)
[2025-04-19] MEDS: TORADOL 15 MG IV ×3 (10:52→23:49)
[2025-04-19 11:00] VITALS: BP 115/85
--- NOTE | 2025-04-19 12:34 | W.PN.ID1 ---
Date of Service
Date of Service: April 19, 2025
Today's Communication
- c/w levofloxacin 750 mg PO qday for a 7 day course 04/18-04/24
- stable for dc from ID perspective, follow up with PCP
Assessment / Plan
Fever - resolved
Leukocytosis - resolving
Immunosuppression - cimzia
Ground Glass Opacity - possible CAP vs pulmonary hemorrhage
Allergy to penicillin - itching, swelling, difficulty breathing
- blood cultures x3 in progress
- has not produced a sputum
- legionella, covid and influenza negative
- c/w levofloxacin 750 mg PO qday for a 7 day course 04/18-04/24
- stable for dc from ID perspective, follow up with PCP
Chief Complaint
-: Fever
Subjective / Review of Systems
no recorded fevers here
bp stable
hemoptysis being quantified
ongoing pleuritic chest pain, better with toradol
some hemoptysis
Vital Signs / Physical Exam
Vital Signs
Vital Signs
Temp Pulse Resp BP Pulse Ox
98.1 F 85 18 115/85 98
04/19/25 11:00 04/19/25 11:00 04/19/25 11:00 04/19/25 11:00 04/19/25 11:00
Physical Exam
Constitutional: No Acute Distress
Cardiovascular: Regular Rate and S1/S2; Negative Murmur or Rub
Pulmonary: Clear and Symmetric; Negative Wheezes or Rales
Gastrointestinal: Soft, Non Tender, Non Distended and Normal Bowel Sounds
Skin: Warm and Dry; Negative Rash or Jaundice
Objective Data
Lab Data
Lab Results
04/19/25 05:22
04/19/25 05:22
Estimated Creat Clear 96 ml/min 04/19/25 05:22
Lactic Acid Cancelled 04/18/25 14:00
Total Bilirubin 1.1 mg/dl (0.2-1.3) 04/18/25 06:45
AST 19 U/L (14-36) 04/18/25 06:45
ALT 32 U/L (0-35) 04/18/25 06:45
Alkaline Phosphatase 98 U/L (38-126) 04/18/25 06:45
Most recent labs reviewed.
Micro Results:
04/18/25 10:47 Blood Culture - Preliminary
Blood/Venous No Growth in 24 hours- Final report to follow
04/18/25 10:44 Blood Culture - Preliminary
Blood/Venous No Growth in 24 hours- Final report to follow
04/18/25 06:45 Blood Culture - Preliminary
Blood/Venous No Growth in 24 hours- Final report to follow
04/18/25 13:38 Influenza Types A & B (NANDINI) - Final
Nasal Swab Negative for Influenza A & B, NAAT
Negative results must be combined with clinical observations
and patient history.
Nucleic Acid Amplification test (NAAT)performed on the
[employer] platform.
04/18/25 12:28 Legionella Urinary Antigen - Final
Urine Negative for Legionella pneumophila Serogroup 1 antigen.
A negative result does not rule out the possiblity of
Legionella infection due to other serogroups or species of
Legionella. Clinical correlation is recommended.
[2025-04-19 15:00] VITALS: BP 125/62
--- NOTE | 2025-04-19 16:03 | W.PN.HOSP.TC ---
Today's Communication/Plan
-
Still with significant pleuritic chest pain and SOB, and still needing oxygen
Assessment / Plan
Assessment / Plan
Physical Exam
General: No Apparent Distress
HEENT: NormoCephalic and Moist mucous membranes
Respiratory: Clear
Cardiac: S1/S2 and Regular Rhythm
GI: Soft, Non Tender and Normal Bowel Sounds
Musculoskeletal: No Cyanosis
Skin: Warm and Dry
Neuro: Awake, Alert, AO x 3 and Nonfocal/grossly intact
Psych: Calm and Intact Judgment/Insight
Assessment/Plan
64-year-old female with past medical history of ocular shingles, psoriatic arthritis (on Cimzia and Methotrexate), COPD, bronchiectasis, coronary artery disease, anemia, essential hypertension, hypothyroidism, GERD, migraine and lung nodule who
presented with coughing up blood clots starting around 3 AM this morning. Patient also reported pleuritic type of chest pain, as well as feeling like she had a fever prior to presentation. She denied any other symptoms. She recently finished a
course of antibiotics and steroids outpatient for pneumonia.
Pleuritic Chest Pain
Hemoptysis
New groundglass opacity within the right upper lobe
Fever -- Tmax 101 F at home, prior to arrival
History of Legionella Pneumonia in September to October 2024
Immunocompromised (on Cimzia and Methotrexate outpatient for psoriatic arthritis)
Penicillin Allergy
-No PE on CT Chest
-Initially got Azithromycin in the ER
-Now on Levaquin, appreciate ID: continue with levofloxacin 750 mg PO qday for a 7 day course 04/18/25-04/24/25
-Pulmonary hemorrhage? Appreciate pulmonary. Holding blood thinners.
-Still with significant pleuritic chest pain
-Monitor respiratory status closely
-Monitor on telemetry
Right iatrogenic pneumothorax-post bronchoscopy 02/25/2025
-Was hospitalized 01/2025 to 02/2025 with right sided pneumothorax status post bronchoscopy that was done outpatient, got chest tube at that time which was removed prior to discharge
History of pulmonary nodules
-Underwent bronchoscopy 02/25/25 with brushing of the solid mass and BAL being preformed; there were significant secretions; respiratory, fungal and AFB cultures were done and are no growth to date.
History of ocular shingles
-Continue Valtrex (this is chronic for patient)
Psoriatic arthritis
-Hold home Cimzia and Methotrexate for now given suspected pneumonia
History of headache/nausea vomiting-thought to be perhaps from sedation anesthesia
COPD/emphysema - continue home Breo or equivalent
Lung nodules - pulmonary following
Bronchiectasis
Hypothyroidism - stable; continue Levothyroxine
Aortic aneurysm
Coronary artery disease - continue Rosuvastatin
Hypertension - stable; continue Losartan
Hyperlipidemia - continue statin
Obstructive sleep apnea
Arthritis
Osteoporosis
Cervical arthritis
Low back pain
GERD
History of migraine
#DVT Prophylaxis: SCDs
#CODE Status: Full Code
Anticipated Discharge: 24 - 48 hours
Subjective/Interval History
-
Date of Service: April 19, 2025
Patient was seen and examined. She reported still having shortness of breath.
Objective Data
-
Labs:
Laboratory Results
04/19/25
05:22
WBC 19.0 H
Hgb 12.2
Hct 36.6 L
Plt Count 281
Sodium 138
Potassium 4.4
Chloride 106
Carbon Dioxide 28
BUN 10
Creatinine 0.7
Glucose 91
Calcium 8.7
Vital Signs:
Vital Signs
Temp Pulse Resp BP Pulse Ox
98.2 F 101 19 125/62 97
04/19/25 15:00 04/19/25 15:00 04/19/25 15:00 04/19/25 15:00 04/19/25 15:00
I&O
11/04/19/25 04/20/25
06:59 06:59 06:59
Intake Total 600 / 600
Balance 600 / 600
--- NOTE | 2025-04-19 16:15 | CM ---
Pt reports she lives alone in a 2SH, 2 steps to enter, has supportive son Omega, however he lives about an hour away.
Pt reports being independent in all areas [employer], has a walker and a cane, but not currently using them. Pt stated she has C-pap machine. Pt reports she had [facility] in the past and will prefer [facility] if recommended.
D/C plan: home with anticipated no needs vs VN if indicated.
PCP: Larry Rothman
Pharmacy: [facility]
.
[2025-04-19 19:00] VITALS: BP 125/68
[2025-04-19] MEDS: NEURONTIN 300 MG PO (22:21)
[2025-04-19 23:00] VITALS: BP 131/56
[2025-04-20 03:00] VITALS: BP 90/51
[2025-04-20 06:00] VITALS: BMI 29.5
[2025-04-20] MEDS: SYNTHROID 125 MCG PO (06:13)
[2025-04-20 06:15] LABS: Hematocrit 36.6 % (37.0-47.0); Hemoglobin 11.9 g/dL (12.0-16.0); Mean Corp Hgb Conc. 32.5 g/dL (33.0-37.0); Mean Corpuscular Volume 93.1 fL (81.0-99.0); Nucleated Red Blood Cells % 0 %; Platelet Count 297 10^3/uL (130-400); Red Cell Dist. Width 14.7 % (11.5-14.5)
[2025-04-20 07:00] LABS: Blood Urea Nitrogen 10 mg/dl (7-17); Calcium 8.9 mg/dl (8.4-10.2); Carbon Dioxide 28 mmol/L (22-30); Chloride 104 mmol/L (98-107); Estimated Creatinine Clearance 96 ml/min; Glucose 92 mg/dl (70-99); Potassium 4.7 mmol/L (3.5-5.1); Sodium 134 mmol/L (135-145); eGFR > 60.00
[2025-04-20 07:45] VITALS: BP 118/55
[2025-04-20] MEDS: TYLENOL 650 MG PO (07:45)
[2025-04-20] MEDS: SYMBICORT 160/4.5 MCG INHALER 2 PUFF INH (07:58)
--- NOTE | 2025-04-20 08:05 | W.PN.HOSP.TC ---
Today's Communication/Plan
-
Discharge today
Assessment / Plan
Assessment / Plan
Physical Exam
General: No Apparent Distress
HEENT: NormoCephalic and Moist mucous membranes
Respiratory: Clear
Cardiac: S1/S2 and Regular Rhythm
GI: Soft, Non Tender and Normal Bowel Sounds
Musculoskeletal: No Cyanosis
Skin: Warm and Dry
Neuro: Awake, Alert, AO x 3 and Nonfocal/grossly intact
Psych: Calm and Intact Judgment/Insight
Assessment/Plan
64-year-old female with past medical history of ocular shingles, psoriatic arthritis (on Cimzia and Methotrexate), COPD, bronchiectasis, coronary artery disease, anemia, essential hypertension, hypothyroidism, GERD, migraine and lung nodule who
presented with coughing up blood clots starting around 3 AM this morning. Patient also reported pleuritic type of chest pain, as well as feeling like she had a fever prior to presentation. She denied any other symptoms. She recently finished a
course of antibiotics and steroids outpatient for pneumonia.
Pleuritic Chest Pain
Hemoptysis
New groundglass opacity within the right upper lobe
Fever -- Tmax 101 F at home, prior to arrival
History of Legionella Pneumonia in September to October 2024
Immunocompromised (on Cimzia and Methotrexate outpatient for psoriatic arthritis)
Penicillin Allergy
-No PE on CT Chest
-Initially got Azithromycin in the ER
-Now on Levaquin, appreciate ID: continue with levofloxacin 750 mg PO qday for a 7 day course 04/18/25-04/24/25
-Pulmonary hemorrhage? Appreciate pulmonary. Holding blood thinners.
-Still with significant pleuritic chest pain
-Monitor respiratory status closely
-Monitor on telemetry
Right iatrogenic pneumothorax-post bronchoscopy 02/25/2025
-Was hospitalized 01/2025 to 02/2025 with right sided pneumothorax status post bronchoscopy that was done outpatient, got chest tube at that time which was removed prior to discharge
History of pulmonary nodules
-Underwent bronchoscopy 02/25/25 with brushing of the solid mass and BAL being preformed; there were significant secretions; respiratory, fungal and AFB cultures were done and are no growth to date.
History of ocular shingles
-Continue Valtrex (this is chronic for patient)
Psoriatic arthritis
-Hold home Cimzia and Methotrexate for now given suspected pneumonia
History of headache/nausea vomiting-thought to be perhaps from sedation anesthesia
COPD/emphysema - continue home Breo or equivalent
Lung nodules - pulmonary following
Bronchiectasis
Hypothyroidism - stable; continue Levothyroxine
Aortic aneurysm
Coronary artery disease - continue Rosuvastatin
Hypertension - stable; continue Losartan
Hyperlipidemia - continue statin
Obstructive sleep apnea
Arthritis
Osteoporosis
Cervical arthritis
Low back pain
GERD
History of migraine
#DVT Prophylaxis: SCDs
#CODE Status: Full Code
More than 30 minutes spent in discharge including
Final examination of the patient
Summarizing hospital stay
Instructions for continuing care to all relevant caregivers
Preparation of discharge records, prescriptions, and referral forms
Total time spent (in minutes): 37
Anticipated Discharge: Today
Subjective/Interval History
-
Date of Service: April 20, 2025
Patient was seen and examined. She reported feeling much better today, Toradol helped significantly with the chest pain, shortness of breath is much better.
Objective Data
-
Labs:
Laboratory Results
04/20/25
05:19
WBC 13.9 H
Hgb 11.9 L
Hct 36.6 L
Plt Count 297
Sodium 134 L
Potassium 4.7
Chloride 104
Carbon Dioxide 28
BUN 10
Creatinine 0.7
Glucose 92
Calcium 8.9
Vital Signs:
Vital Signs
Temp Pulse Resp BP Pulse Ox
98.3 F 70 18 90/51 95
04/20/25 03:00 04/20/25 08:03 04/20/25 08:03 04/20/25 03:00 04/20/25 08:03
I&O
04/19/25 04/20/25 04/21/25
06:59 06:59 06:59
Intake Total 600 / 600 1919
Balance 600 / 600 1919
[2025-04-20 08:55] VITALS: BP 121/46; PULSE 95; O2SAT 96
[2025-04-20] MEDS: VITAMIN B-12 50 MCG PO (09:45)
[2025-04-20] MEDS: LEVAQUIN 750 MG PO (09:45)
[2025-04-20] MEDS: VITAMIN D3 (cholecalciferol) 50 MCG PO (09:46)
[2025-04-20] MEDS: CLARITIN 10 MG PO (09:46)
[2025-04-20] MEDS: COZAAR 25 MG PO (09:46)
[2025-04-20] MEDS: PEPCID 40 MG PO (09:46)
[2025-04-20] MEDS: FOLVITE 3 MG PO (09:46)
[2025-04-20] MEDS: CRESTOR 5 MG PO (09:46)
[2025-04-20] MEDS: MAGNESIUM OXIDE 200 MG PO (09:46)
[2025-04-20] MEDS: VALTREX 1000 MG PO (09:47)
[2025-04-20] MEDS: ESTRACE 0.5 MG PO (09:47)
[2025-04-20] MEDS: VISBIOME 1 CAP PO (09:47)
[2025-04-20 11:37] VITALS: BP 123/65
--- NOTE | 2025-04-20 14:49 | W.PN.PUL3 ---
Today's Communication / Plan
-
- Stable for discharge from pulmonary standpoint
- Antibiotic per infectious disease recommendations
- Outpatient follow-up with [facility] pulmonary clinic, information added to discharge section
Assessment
-
64-year-old smoking female with underlying COPD, asthma, GERD, psoriatic arthritis, recent Legionella pneumonia and pulmonary nodules status post bronchoscopy with subsequent 'reaction to anesthesia' resulting and repetitive retching and emesis
contributing to development of pneumothorax status post chest tube over the last several weeks had increasing shortness of breath, minimally responsive to doxycycline and prednisone from primary and now presents with small amount of hemoptysis,
fevers, chills, sputum production, shortness of breath-consulted for hemoptysis/pleurisy/shortness of breath 04/18/25.
Hemoptysis.
[id number] in immunocompromised patient
Abnormal CT chest with groundglass opacification-Pneumonia versus hemorrhage
Pleurisy
COPD with mild acute exacerbation.
Leukocytosis-WBC 28.6
Mild hyponatremia.
Mild hyperglycemia
Conditions present prior to admission:
COPD/asthma overlap. , bronchiectasis
Cigarette smoker, having quit September 2024
Pulmonary nodules, status post bronchoscopy 01/2025-brushings, no biopsies.
Pneumothorax post bronchoscopy despite no biopsies-had postanesthesia retching/emesis status post chest tube �24 hours with resolution
History of Legionella pneumonia-September 2024
CHRISSIE/CPAP.
CAD.
Hypothyroid. .
Multiple thyroid nodules-Dr. Lesley Lopez-[facility] endocrinology
Allergies.
Osteopenia.
GERD.
Chronic lower back pain.
Mitral and aortic prolapse.
Psoriatic arthritis-on methotrexate and Cimzia
Interstitial cystitis
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
. Hysterectomy. Nasal surgery.Cervical spine C5-7 foraminectomy. Left shoulder surgery 2016. Dental implants. . Multiple abdominal surgeries. Bladder lift.
Plan
Patient currently significantly improved. Sitting comfortably on room air saturating well. Cough nearly resolved. Hemoptysis continues to improve, most recent expectoration that she showed me was essentially clear and mucoid.
Agree with recommendations from infectious disease service regarding levofloxacin.
Patient can be discharged from pulmonary standpoint, will resume outpatient follow-up with Dr. Mccarty
CPAP or patient's home AutoPap at night
Monitor pleurisy-analgesia as needed-no pulmonary embolism
Add Toradol as Tylenol is not helping
Monitor hemoptysis-quantify
Cultures reviewed
Influenza negative
Legionella negative
Blood cultures pending
Unable to produce sputum
Sputum culture if able
Empiric antibiotics-cover atypicals as well-currently on levofloxacin
Infectious disease following-correspondence reviewed
Leukocytosis-improved now 19,000
Follow radiographically
DVT prophylaxis.
Nutrition
Early mobilization.
Reviewed with ED
Last saw Dr. Mccarty 02/19/25 and then again 03/12/25-has appointment 07/02/25 at 9:45 AM-due for CT chest June
Studies:
.
Chest x-ray 04/05/25-NAD.
Chest x-ray 04/18/25-no pneumothorax, COPD changes
.
CT chest 04/18/25-no defects to suggest pulmonary embolism, groundglass opacification right upper lobe measuring 3.2 cm, could represent infectious or inflammatory disease, Earl 7 mm nodule within the right upper lobe is unchanged, moderate diffuse
emphysema, mild coronary artery calcifications
CT chest 01/29/25: right upper lobe nodule has slightly decreased in size, currently 5 mm, prrior was 16 mm.� There are patchy groundglass nodules and bronchiolitis which may be slightly worse.Doppler 01/18/25: Negative left llower extremity DVT
CT chest 03/04/25:no evidence of aortic dissection.� There is evidence of cystic disease bilaterally, scattered nodules, prior left lower lobe nodule which was 3 mm is now 7 mm.� There are additional nodules in the right upper lobe and the right
middle lobe which are new, largest 9 mm.� There is no pneumothorax, no significant adenopathy.� There are a few hepatic cysts.� Kidneys are unremarkable.� There is a 4.4 cm aortic aneurysm in the abdomen
PFT 10/11/24: FVC 4.27/113%, FEV1 2.29/79%, ratio 55.� TLC 6.28/109%, DLCO 13.05/52%.� Mild obstruction with moderate gas exchange defect.� When compared to March 2024, this is trending towards improvement
PFT 04/11/24: FVC 4.00/101%, FEV1 2.09/69%, ratio 52.� TLC 6.50/109%, RV 2.39/106%, DLCO 12.01/47%.� Moderate obstruction with moderate gas exchange defect.� Compared to 2020 this stable
6MWT 10/11/24: Total distance 1350 feet, 96% room air, heart rate 96, dyspnea scale 0/10
6MWT 06/23/23 (): Total distance 1650 feet, desaturation mann 96% on room air, dyspnea scale 2/10
Original sleep study from 05/01/2015 reveals 5.2, REM index 10.6, supine index 12.9.
Echo 02/06/19: normal biventricular function, mild mitral regurgitation. Right heart pressures cannot be determined.
Echocardiogram 02/21/25-71%, mild aortic sclerosis
Subjective Data
-
Date of Service:
Date of Service: April 20, 2025
Chief Complaint: Pulmonary Follow Up and Dyspnea Follow Up
Subjective:
Comfortably sitting in bed in no acute distress
Review of Systems
Genitourinary: Other (All 14 systems reviewed and negative except as stated above in the history of present illness.)
Objective Data
Data Reviewed
Vital Signs / I&O / Oxygen:
Vital Signs
Temp Pulse Resp BP Pulse Ox
97.7 F 80 16 123/65 98
04/20/25 11:37 04/20/25 11:37 04/20/25 11:37 04/20/25 11:37 04/20/25 11:37
Intake and Output
04/19/25 04/20/25 04/21/25
06:59 06:59 06:59
Intake Total 600 / 600 1919
Balance 600 / 600 1919
SaO2 98
Nasal Cannula flow liters per 2
minute
Physical Exam
General: Respiratory Distress (None) and Comfortable
HEENT: Normocephalic, Anicteric and Moist Mucous Membranes
Cardiovascular: Regular Rhythm
Respiratory: Clear (Diminished breath sounds), Crackles ( rare basilar), Rhonchi (n), Non-Labored Respirations, Accessory Resp Muscle Use (n) and Stridor (n)
GI: Soft, Non Distended and Non Tender
Neurology: Awake, Alert and No Motor Deficits
Skin: Warm, Good Color, Cyanosis (n), Jaundice (n) and Rash (n)
Labs/Micro/Reports
Lab Data
04/20/25 05:19
04/20/25 05:19
Microbiology
04/19/25 17:46 Sputum Respiratory Culture - Preliminary
Usual Respiratory Gloria
04/19/25 17:46 Sputum Gram Stain - Preliminary
04/18/25 10:47 Blood/Venous Blood Culture - Preliminary
No Growth in 48 hours- Final report to follow
04/18/25 10:44 Blood/Venous Blood Culture - Preliminary
No Growth in 48 hours- Final report to follow
04/18/25 06:45 Blood/Venous Blood Culture - Preliminary
No Growth in 48 hours- Final report to follow
04/18/25 13:38 Nasal Swab Influenza Types A & B (NANDINI) - Final
Negative for Influenza A & B, NAAT
Negative results must be combined with clinical observations
and patient history.
Nucleic Acid Amplification test (NAAT)performed on the
[employer] platform.
04/18/25 12:28 Urine Legionella Urinary Antigen - Final
Negative for Legionella pneumophila Serogroup 1 antigen.
A negative result does not rule out the possiblity of
Legionella infection due to other serogroups or species of
Legionella. Clinical correlation is recommended.
--- NOTE | 2025-04-20 15:14 | W.DCSUMMARY ---
Discharge Summary
Discharge Data
Date of Admission: 04/18/25
Date of Discharge: 04/20/25
Total time spent discharging patient (in min): 37
-
Pending Results: No
Hospital Course
64 year-old female with past medical history of ocular shingles, psoriatic arthritis (on Cimzia and Methotrexate), COPD, bronchiectasis, coronary artery disease, anemia, essential hypertension, hypothyroidism, GERD, migraine and lung nodule who
presented with coughing up blood clots starting around 3 AM on the morning of presentation. Patient also reported pleuritic type of chest pain, as well as feeling like she had a fever prior to presentation. She denied any other symptoms. She
recently finished a course of antibiotics and steroids outpatient for pneumonia. On admission patient needed oxygen. CT Chest with contrast was done, and it showed, as per radiologist, focus of ground-glass opacity within the right upper lobe,
measuring 3.2 cm in greatest dimension, new compared to prior CT; findings may represent infectious or inflammatory disease, or pulmonary hemorrhage given history of hemoptysis; adjacent 7 mm nodule within the right upper lobe, unchanged compared to
recent prior CT. Continued CT surveillance is suggested; Moderate diffuse emphysema. Patient should be assessed for an annual low-dose lung cancer CT program, as pulmonary emphysema is an independent risk factor for lung cancer; Mild coronary
arterial calcification. Astronomy Department Chair her immunocompromised status and CT findings and clinical picture, infectious disease was consulted and Levofloxacin was recommended. Pulmonary was also consulted given the above findings and her recent bronchoscopy and
pneumothorax. Patient received Toradol with significant improvement in her pleuritic chest pain. Patient's acute hypoxia resolved, and on the day of discharge home oxygen assessment was done showing that patient did not need any home oxygen. Patient
felt much better and she was stable for discharge with outpatient follow-up.
Discharge Plan
-
Patient Disposition: Home (Routine Discharge)
Discharge Diagnosis/Procedures: Pleuritic Chest Pain
Hemoptysis
New groundglass opacity within the right upper lobe
Fever -- Tmax 101 F at home, prior to arrival
History of Legionella Pneumonia in September to October 2024
Immunocompromised (on Cimzia and Methotrexate outpatient for psoriatic arthritis)
Penicillin Allergy
Right iatrogenic pneumothorax-post bronchoscopy 02/25/2025
History of pulmonary nodules
History of ocular shingles
Psoriatic arthritis
History of headache/nausea vomiting-thought to be perhaps from sedation anesthesia
COPD/emphysema
Lung nodules
Bronchiectasis
Hypothyroidism
Aortic aneurysm
Coronary artery disease
Hypertension
Hyperlipidemia
Obstructive sleep apnea
Arthritis
Osteoporosis
Cervical arthritis
Low back pain
GERD
History of migraine
CT Chest PE Study (as per radiologist's report):
'IMPRESSION:
1. Focus of groundglass opacity within the right upper lobe, measuring 3.2 cm in greatest dimension, new compared to prior CT. Findings may represent infectious or inflammatory disease, or pulmonary hemorrhage given history of hemoptysis.
2. Adjacent 7 mm nodule within the right upper lobe, unchanged compared to recent prior CT. Continued CT surveillance is suggested.
3. Moderate diffuse emphysema. Patient should be assessed for an annual low-dose lung cancer CT program, as pulmonary emphysema is an independent risk factor for lung cancer.
4. Mild coronary arterial calcification. Please correlate with symptoms of and risk factors for coronary artery disease, with further workup as clinically appropriate.'
Condition: Good
Diet: Low Fat, Low Cholesterol and Low Sodium
Activity: As tolerated
Blood Work: CBC, BMP and Magnesium with your primary care provider, within the next 3 to 4 days
Activity Restrictions/Additional Instructions:
For your pain, you can try over the counter NSAID type of medication such as Motrin or Ibuprofen but try not to take it given the side effects of taking too much NSAIDs
Instructions: Levofloxacin (Systemic), Nonsteroidal antiinflammatory drugs (NSAIDs)
Referrals:
Linnea Mccarty MD [Active, Pulmonary Medicine] - in four to six weeks
Alexi St MD [Active, Pulmonary Medicine]
Cimorelli,Larry C. Jr., DO [Family Provider, Internal Medicine] - in 4 days
Referral Note: Hospitalization Follow-Up
Additional Discharge Medication Instructions: Continue with Levofloxacin 750 mg PO daily through 04/24/25
Holding Cimzia and Methotrexate for now given infection -- discuss with your outpatient doctor regarding when to resume this medication.
Prescriptions:
New
levofloxacin 750 mg Tablet
750 mg PO DAILY Qty: 4 0RF
Rx Instructions:
Next dose is on 04/21/25
polyethylene glycol 3350 17 gram Powder In Packet
17 g PO DAILYPRN PRN (Reason: constipation) Qty: 30 0RF
Continued
gabapentin 300 MG capsule
300 mg PO HS
estradiol 0.5 MG tablet
0.5 mg PO DAILY
famotidine 40 mg Tablet
40 mg PO DAILY
levothyroxine [Synthroid] 125 mcg Tablet
125 mcg PO DAILY
rosuvastatin 5 mg Tablet
5 mg PO DAILY
valacyclovir [Valtrex] 1 gram Tablet
1,000 mg PO DAILY
losartan 25 mg Tablet
25 mg PO DAILY
fluticasone furoate-vilanterol [Breo Ellipta] 200-25 mcg/dose Blister With Device
1 inh INHALATION R DAILY
cyanocobalamin (vitamin B-12) 50 mcg Tablet
50 mcg PO DAILY
cholecalciferol (vitamin D3) [Vitamin D3] 50 mcg (2,000 unit) Tablet
50 mcg PO DAILY
magnesium oxide 200 mg magnesium Tablet
200 mg PO DAILY Qty: 0
acetaminophen 325 mg tablet
650 mg PO Q4HPRN PRN (Reason: FEVER)
ibuprofen [Advil] 200 mg Tablet
400 mg PO DAILYPRN PRN (Reason: HEADACHE)
folic acid 1 mg Tablet
3 mg PO DAILY
loratadine 10 mg Tablet
10 mg PO DAILY
Held
Cimzia 200 mg/mL Syringe Kit
200 mg SC Q2W
Hold Instructions: Resume on 04/29/25. Being held for now given infection -- ask your doctor when to resume it
methotrexate sodium 2.5 mg tablet
20 mg PO TU
Hold Instructions: Resume on 04/30/25. Being held for now given infection. Please talk to your doctor regarding when you should resume taking this medication.
Discharge Orders:
Discharge Patient (As Directed); Ordered 04/20/25
Ordered By: Ac Ferreira
Discharge Date and Time
Discharge Date/Time: 04/20/25 15:49
Print Language: CITIZEN [place]
[2025-04-20 15:48] VITALS: BP 154/72
== END 2025-04-20 15:49 | disposition home or self-care (01) | DRG 204 ==
LOC: 3 WEST ACU 14:34
PROVIDERS: ADMITTING PHYSICIAN Hospitalist; CONSULT PHYSICIAN Internal Medicine Critical Care Medicine; EMERGENCY PHYSICIAN Emergency Medicine; FAMILY PHYSICIAN Family Medicine; OTHER PHYSICIAN Student in an Organized Health Care Education/Training Program
DX: R04.2 Hemoptysis (principal); D84.9 Immunodeficiency, unspecified; E87.1 Hypo-osmolality and hyponatremia; J44.0 Chronic obstructive pulmonary disease with (acute) lower respiratory infection; R07.81 Pleurodynia; R07.89 Other chest pain; R50.9 Fever, unspecified; L40.50 Arthropathic psoriasis, unspecified; E03.9 Hypothyroidism, unspecified; E04.2 Nontoxic multinodular goiter; F17.210 Nicotine dependence, cigarettes, uncomplicated; G47.33 Obstructive sleep apnea (adult) (pediatric); K21.9 Gastro-esophageal reflux disease without esophagitis; I25.10 Atherosclerotic heart disease of native coronary artery without angina pectoris; G43.909 Migraine, unspecified, not intractable, without status migrainosus; G89.29 Other chronic pain; I10 Essential (primary) hypertension; Z11.52 Encounter for screening for COVID-19; Z79.899 Other long term (current) drug therapy; Z79.890 Hormone replacement therapy
CPT/HCPCS: 71046; 71275; 80048; 80053; 83605; 84484; 85025; 87040; 87070; 87077; 87186; 87205; 87449; 87502; 87811; 93005; 94640; 96365; 96375; 97162; 99285; Q9967

== ENCOUNTER → 2025-05-24 11:06 | Outpatient (REF) | payer MEDICARE, OTHER, SELFPAY | LOC: REG 11:06 | PROVIDERS: ATTENDING PHYSICIAN Internal Medicine Critical Care Medicine; FAMILY PHYSICIAN Family Medicine | DX: A48.1 Legionnaires' disease (principal); R04.2 Hemoptysis; B96.5 Pseudomonas (aeruginosa) (mallei) (pseudomallei) as the cause of diseases classified elsewhere | CPT/HCPCS: 87070; 87205 ==